=== PATIENT | female | born 1975 | race Hispanic/Latino ===

== ENCOUNTER 2021-07-09 13:53 | Emergency (ER) | payer BC, SELFPAY ==
[2021-07-09 14:06] VITALS: BP 122/58; PULSE 74; RESP 16; TEMP 37.1; O2SAT 99
--- NOTE | 2021-07-09 15:10 | ED.FEMALEGU ---
HPI - Female Genitourinary General Chief complaint: Urogenital-Female Stated complaint: UTI Time Seen by Provider: 07/09/21 14:52 Source: patient and RN notes reviewed Mode of arrival: ambulatory Limitations: no limitations History of Present Illness HPI Narrative: Patient presents today complaining of 5-day history of lower abdominal discomfort, burning with urination, urinary frequency. Pain increases in the external genitalia when she is sitting. She has not been taking any [id number] medication for symptoms prior to arrival. She has an appointment with her PCP next week, but did not want to wait till then. History of pyelonephritis. Related Data Allergies Allergy/AdvReac Type Severity Reaction Status Date / Time No Known Allergies Allergy Verified 07/09/21 14:03 Review of Systems Review of Systems: CONSTITUTIONAL: Denies body aches, fever, chills, or sweats. EYES: Denies visual changes, redness, or discharge. ENT: Denies rhinorrhea, congestion, sore throat, or otalgia. CARDIOVASCULAR: Denies chest pain, palpitations, or edema. RESPIRATORY: Denies cough or dyspnea. GASTROINTESTINAL: Denies abdominal pain, nausea, vomiting, or diarrhea. GENITOURINARY: + Dysuria, frequency, lower abdominal discomfort SKIN: Denies rash, itching, or wounds. MUSCULOSKELETAL: Denies back pain, joint pain, or myalgia. NEUROLOGIC: Denies headache, numbness, tingling, or weakness. PSYCH: Denies depression or anxiety. PMFSH Comments At time of signature, I have reviewed and agree with nursing past medical, surgical, social and family history unless otherwise noted. Please see nursing chart for further information. There is no relevant family history pertinent to the presenting complaint Exam Narrative: GENERAL: Well-appearing, well-nourished, and in no acute distress. HEAD: Normocephalic, atraumatic. EYES: EOMI. No redness or drainage. Conjunctivae normal. ENT: Mucous membranes pink and moist. NECK: Normal AROM. CHEST: No respiratory distress. Clear to auscultation. HEART: Regular rate and rhythm. No murmur appreciated. Normal peripheral pulses. ABDOMEN: Soft, nontender, nondistended, normal active bowel sounds. : Normal external genitalia. MUSCULOSKELETAL: No bony tenderness. EXTREMITIES: Normal range of motion. No edema. SKIN: Warm, dry, no rash. Capillary refill normal. Normal skin turgor. NEURO: No focal deficits. Alert and oriented x3. Gait steady. PSYCH: Normal affect. No signs of depression or anxiety. Course Vital Signs Vital signs: Vital Signs Temperature 98.7 F 07/09/21 14:06 Pulse Rate 74 07/09/21 14:06 Respiratory Rate 16 07/09/21 14:06 Blood Pressure 122/58 L 07/09/21 14:06 Pulse Oximetry 99 07/09/21 14:06 Temperature 98.7 F 07/09/21 14:06 Pulse Rate 74 07/09/21 14:06 Respiratory Rate 16 07/09/21 14:06 Blood Pressure 122/58 L 07/09/21 14:06 Pulse Oximetry 99 07/09/21 14:06 Reviewed. Pt has been instructed to follow up with her PCP regarding her elevated blood pressure today. MDM - Female Genitourinary Differential Diagnosis Differential diagnosis: Likely urinary tract infection, vaginitis and cystitis Lab Data Attestation: I reviewed the patient's lab results. Labs: Urine Glucose Negative Reference Range: Negative Urine Bilirubin Negative Reference Range: Negative Urine Ketone Negative Reference Range: Negative Urine Specific [place] 1.010 Reference Range:1.001-1.035 Urine Blood Negative Reference Range: Negative * * Urine pH 5.5
== END 2021-07-09 15:20 | disposition home or self-care (01) ==
PROVIDERS: Emergency Provider Nurse Practitioner; PCP Physician Assistant
DX: R30.0 Dysuria (principal); R35.0 Frequency of micturition
CPT/HCPCS: 81003; 87077; 87086; 87088; 87186; 99213; G0463

== ENCOUNTER 2021-07-30 12:43 | Outpatient (CLI) | payer BC, SELFPAY ==
--- NOTE | ~2021-07-30 | US_ITS ---
EXAMINATION: US pelvic complete w TV DATE: 07/30/2021 13:32 INDICATION: Pelvic pain. Heavy periods. Comparison:Ultrasound dated 05/13/2019 TECHNIQUE: Multiple transabdominal and endovaginal sonographic images of the pelvis performed. FINDINGS: The uterus measures 11 x 6.4 x 6 cm. There are uterine fibroids, largest measuring 3.7 cm. The endometrial complex measures 9 mm. The right ovary measures 2 x 1.4 x 2.2 cm and the left ovary measures 1.5 x 1.3 x 1.3 cm. There are small follicles in each ovary. Normal doppler signal in both ovaries. There is no free fluid in the pelvis. There are no abnormal masses seen on either side. IMPRESSION: 1. Enlarged uterus containing fibroids, largest measuring 3.7 cm maximum dimension. Reviewed, dictated and finalized at location B. LEY COLLECTOR IMPRESSION: 1. Enlarged uterus containing fibroids, largest measuring 3.7 cm maximum dimens ion.
== END 2021-07-30 12:44 | disposition home or self-care (01) ==
PROVIDERS: PCP Physician Assistant; Visit Provider Physician Assistant
DX: R10.2 Pelvic and perineal pain (principal); D25.9 Leiomyoma of uterus, unspecified
CPT/HCPCS: 76830; 76856

== ENCOUNTER 2022-01-02 10:52 | Outpatient (CLI) | payer BC, SELFPAY ==
[2022-01-02 11:40] LABS: Basophils Absolute Auto 0.1 K/mm3 (0.0-0.1); Basophils Percent Auto 0.7 % (0.2-1.2); Eosinophils Absolute Auto 0.4 K/mm3 (0-0.3); Eosinophils Percent Auto 4.3 % (0-4.4); Hematocrit 39.7 % (37.0-47.0); Hemoglobin 12.7 g/dL (12.0-15.0); Immature Granulocyte Absolute 0.04 K/mm3 (0.00-0.031); Immature Granulocyte Percent A 0.4 % (0-0.5); Lymphocytes Percent Auto 27.4 % (18.3-44.2); Mean Corpuscular Hemoglobin 28.7 pg (26-34); Mean Corpuscular Volume 89.6 fl (80-100); Mean Platelet Volume 10.7 fl (7.4-10.4); Monocytes Absolute Auto 0.7 K/mm3 (0.1-0.6); Neutrophils Absolute Auto 5.4 K/mm3 (1.3-6.7); Neutrophils Percent Auto 59.2 % (45.5-73.1); Platelet Count Result 289 k/mm3 (150-375); Red Blood Count 4.43 M/mm3 (4.2-5.4); Red Cell Distribution Width 16.4 % (11.5-14.5); White Blood Count 9.1 K/mm3 (4.5-10.0)
[2022-01-02 11:53] LABS: Appearance Urine Clear (Clear); Bilirubin Urine Negative (Negative); Blood Urine Negative (Negative); Color Urine Yellow (Yellow); Glucose Urine UA Negative (Negative); Ketones Urine Negative (Negative); Leukocyte Esterase Ur Negative LEU/UL (NEGATIVE); Nitrate Urine Negative (Negative); Protein Urine Negative (Negative); Specific Grav Ur 1.015 (1.001-1.035); Urobilinogen Urine 0.2 mg/dL (<2.0); pH Urine 7.5 (5.0-9.0)
[2022-01-02 12:06] LABS: Add Urine Microscopic? NO
[2022-01-02 12:29] LABS: Iron 61 ug/dL (37-170)
[2022-01-02 12:38] LABS: Percent Iron Saturation 17 % (20-50)
[2022-01-05 08:37] LABS: FSH 1.6 mIU/mL (***)
[2022-01-07 21:57] LABS: Estradiol, Ultrasensitive 101 pg/mL
== END 2022-01-02 10:53 | disposition home or self-care (01) ==
LOC: ANHLAB 10:55
PROVIDERS: PCP Physician Assistant; Visit Provider Obstetrics & Gynecology
DX: R10.2 Pelvic and perineal pain (principal); N92.0 Excessive and frequent menstruation with regular cycle
CPT/HCPCS: 36415; 81003; 82670; 82728; 83001; 83540; 83550; 84144; 84443; 85025; 87086

== ENCOUNTER 2022-07-10 15:08 | Outpatient (CLI) | payer MEDICAID, SELFPAY ==
--- NOTE | ~2022-07-10 | XR_ITS ---
EXAMINATION: XR thoracic spine 3V DATE: 07/10/2022 15:48 INDICATION: Thoracic back pain TECHNIQUE: AP, lateral and lateral swimmer's views of the thoracic spine were obtained. COMPARISON: None. FINDINGS: There are 10 degrees of mid thoracic levocurvature. Bone alignment is normal. There is no f racture. Small degenerative osteophytes project from the anterior endplates of multiple vertebral bod ies. There is mild loss of intervertebral disc space height in the midthoracic spine. IMPRESSION: 1. Mild thoracic spondylosis without acute findings. Reviewed, dictated and finalized at location B. CIPAL ARCHITECTURAL FIRM
--- NOTE | ~2022-07-10 | XR_ITS ---
EXAMINATION: XR lumbar spine 2-3V DATE: 07/10/2022 15:48 INDICATION: Low back pain TECHNIQUE: Anteroposterior and lateral views of the lumbar spine, and cone-down lateral view of the l umbosacral junction were obtained. COMPARISON: 05/10/2019 FINDINGS: There are 2 mm of stable retrolisthesis of L5 on S1. There is mild loss of intervertebral d isc space height at L5-S1 without significant change. The vertebral body heights are normal. There is no fracture. IMPRESSION: 1. Mild lumbar spondylosis without acute findings or significant interval change. Reviewed, dictated and finalized at location B. INVESTIGATOR IMPRESSION: 1. Mild lumbar spondylosis without acute findings or significant interval faheem tan
== END 2022-07-10 15:09 | disposition home or self-care (01) ==
PROVIDERS: PCP Physician Assistant; Visit Provider Physician Assistant
DX: M47.894 Other spondylosis, thoracic region (principal); M47.896 Other spondylosis, lumbar region
CPT/HCPCS: 72072; 72100

== ENCOUNTER 2022-07-17 13:44 | Emergency (ER) | payer MEDICAID, SELFPAY ==
[2022-07-17 13:51] VITALS: BP 129/67; PULSE 95; RESP 16; TEMP 36.7; O2SAT 100
--- NOTE | 2022-07-17 14:53 | ED.URI ---
HPI - URI/Sore Throat General Chief Complaint: Upper Respiratory Infection Stated Complaint: uri Source: patient and RN notes reviewed Mode of arrival: ambulatory Limitations: no limitations History of Present Illness HPI Narrative: 46-year-old female presented for complaints of sinus congestion and drainage, cough, and bilateral ear pressure. Cough is nonproductive. She is taking Mucinex occasionally without relief. She denies shortness of breath, wheezing, nausea, vomiting, diarrhea, fevers or chills. She denies sick contacts. MD elicited complaint: cough Related Data Home Medications Medication Instructions Recorded Confirmed ferrous sulfate 325 mg (65 mg 325 mg PO DAILY 01/02/22 07/17/22 iron) tablet omeprazole 20 mg capsule,delayed 20 mg PO DAILY 07/17/22 07/17/22 release Allergies Allergy/AdvReac Type Severity Reaction Status Date / Time No Known Allergies Allergy Verified 07/17/22 13:58 Review of Systems Review of Systems: CONSTITUTIONAL: Denies malaise, chills, sweats, fever EYES: Denies visual changes, redness, or discharge ENT: Reports rhinorrhea, congestion, deniessinus pain, otalgia, sore throat CARDIOVASCULAR: Denies chest pain, palpitations, edema RESPIRATORY: Reports cough, post nasal drainage. 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 TM pearly zacarias with dull light reflex bilaterally; no tragal tenderness. Oropharynx erythematous without lesions or exudate, no drooling, no hoarseness, no trismus, uvula midline. CHEST: Clear to auscultation, breath sounds equal. No wheezing, rhonchi, rales, or stridor. No respiratory distress, speaks in full sentences. HEART: Regular rate and rhythm. No murmur heard. SKIN: Warm, dry, no rash. NEURO: Alert and oriented x3. PSYCH: Normal mood and affect Course Course Emergency Course: Patient is aware of diagnosis, understands and agrees to treatment plan. Anticipatory guidance given. Patient agrees to follow-up as directed and is aware of reasons to seek care at the emergency department. Portions of this record may have been created with voice recognition software Level of Care: Express Care Visit Vital Signs Vital signs: Vital Signs Temperature 98.1 F 07/17/22 13:51 Pulse Rate 95 07/17/22 13:51 Respiratory Rate 16 07/17/22 13:51 Blood Pressure 129/67 07/17/22 13:51 Pulse Oximetry 100 07/17/22 13:51 Oxygen Delivery Room Air 07/17/22 13:51 Temperature 98.1 F 07/17/22 13:51 Pulse Rate 95 07/17/22 13:51 Respiratory Rate 16 07/17/22 13:51 Blood Pressure 129/67 07/17/22 13:51 Pulse Oximetry 100 07/17/22 13:51 Oxygen Delivery Room Air 07/17/22 13:51 reviewed MDM - URI/Sore Throat MDM Narrative Medical decision making narrative: Symptoms present over 5 days. Advised supportive measures and signs/symptoms to go to the ER. Pt is appropriate for outpt treatment and f/u
== END 2022-07-17 15:25 | disposition home or self-care (01) ==
PROVIDERS: Emergency Provider Nurse Practitioner Family; PCP Physician Assistant
DX: J06.9 Acute upper respiratory infection, unspecified (principal); E61.1 Iron deficiency
CPT/HCPCS: 99213; G0463

== ENCOUNTER 2022-08-05 09:41 | Outpatient (CLI) | payer MEDICAID, SELFPAY ==
[2022-08-05 10:52] LABS: Hematocrit 37.1 % (37.0-47.0)
== END 2022-08-05 09:42 | disposition home or self-care (01) ==
PROVIDERS: PCP Physician Assistant; Visit Provider Obstetrics & Gynecology
DX: D25.9 Leiomyoma of uterus, unspecified (principal)
CPT/HCPCS: 36415; 85014; 85018

== ENCOUNTER 2022-08-12 01:25 | Day surgery (SDC) | payer MEDICAID, SELFPAY ==
[2022-07-29 16:38] VITALS: BMI 28.9
--- NOTE | 2022-07-29 16:54 | PC.NURSE ---
Report to the Outpatient Waiting Room, entrance under the green pavilion located off [facility], at time 0800 on date 08/12/22. Planned Procedure Time: 1000. Time changes happen often and if your time is changed the preop area will call you the afternoon before. - You and your visitor will be asked to self-screen and do not enter if you have any COVID symptoms. - Only one visitor is requested with a max of two and NO children visitors are allowed at this time. - The patient visitor may be requested to leave or wait in car when not with patient due to distancing restrictions. - A mask is optional within the hospital. Patients may have clear liquids (water, carbonated beverages, clear teas, apple juice) until 3 hours prior to surgery with a maximum of 20 ounces. 0700 - No food from midnight until time of surgery - Infants may have breast milk until 4 hours before surgery, infant formula 6 hours prior to surgery. - Children will be allowed to drink immediately following surgery. If applicable, please bring a bottle or sippy cup to assist with drinking. Juice, water, soda, and popsicles are readily available. For infants on formula, please bring formula the day of surgery. Pacifiers are allowed. Take the following medications with a SIP of water the morning of surgery: ferrous sulfate Medications to discontinue per physician multivitamin Date to take last dose 08/09/22 Please no make-up, nail ethiopian, hairspray, perfume, deodorant, or body powder the day of surgery. No jewelry (including any body piercings) or valuables the day of surgery, leave them at home. Please take a shower or bath the night before, or the morning of, surgery with an antibacterial soap. Wear comfortable, loose fitting clothing. Children are encouraged to wear pajamas. - Jewelry must be removed prior to entering the operating room. Rings and piercings that are not removed may be cut off. - The hospital will not accept responsibility for valuables. - Please leave all valuables, including medications, at home the day of surgery. If you are going home after surgery, a licensed intermodal truck driver must drive you home. - NO public transportation without another adult if you receive anesthesia. - We recommend that an adult stay with you for 24 hours following discharge. - We also recommend that you do not drive, make important decision, drink alcoholic beverages, or take any drugs that were not prescribed by your health care provider for at least 24 hours after your discharge time. For Pediatric surgeries, we recommend two adults accompany the child home. Follow any additional instructions given to you from your surgeon. If you or anyone in your household have experienced Covid symptoms in the past week, please notify your surgeon or the nurse liaison at the phone number below for possible testing. Telephone instructions given to Lorrainebradley Zaidi & Daughter Sandy and asked if any additional questions and then verbalized understanding. Patient advised to call surgeon office or pre surgery nurse liaison [phone] if any additional questions.
--- NOTE | 2022-08-05 09:13 | PC.NURSE ---
6062 PT ARRIVED TO SIGN CONSENT FOR SURGERY - PT ACCOMPANIED BY FRIEND NOEMI HARDIN CERTIFIED MEDICAL PATIENT RESOURCE SPECIALIST AND MEMBER OF HOSPITAL LIAISON COMMITTEE FOR SCIENTOLOGY, [facility] VIDEO INTERPRETING NIKKI JOEL #[id number] FOR SINGING OF CONSENT FOR SURGERY AND FOR REFUSAL/LIMITATIONS OF USE OF BLOOD COMPONENTS.
--- NOTE | 2022-08-11 17:36 | PM.IMHP ---
H&P: HPI History of Present Illness Date/Time: 08/11/22 17:36 Chief Complaint: AUB Narrative: Lorraine is a 46yo [id number], who presents for scheduled surgery due to AUB. She had a OFFICE DIRECTOR US on 07/2021 and 01/2022 showing an enlarged uterus w/ fibroids (largest 3.7cm; one concerning to be near the EC). She reports her cycles are very heavy. 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 She stopped them and then had a normal cycle of 8 days, but it was a lot heavier. She has been passing blood clots for the last two years; gum ball or sometimes bigger. EMB 01/2022 showed normal endometrium. She then started the cyclic provera; and reports her cycles are still heavy and lasting 10 days; the first 3 days were truck despatcher, but then it was heavier than before (passing even bigger clots). No symptoms of anemia currently, still taking iron. She had blood work with her PCP 04/2022 and told her blood counts were normal. She is a Jehovia's witness and does not accept blood transfusion. She is not interested in major surgery. She has a h/o BTL already. 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 Gender identity (if verbalized by the patient): Female Sexual Orientation (if Verbalized by the Patient): Straight or Heterosexual Spiritual care concerns: No Meds Home Medications and Allergies Home Medications Medication Instructions Recorded Confirmed Type ferrous sulfate 325 mg (65 mg 325 mg PO HS 01/02/22 07/29/22 History iron) tablet medroxyprogesterone 10 mg tablet 10 mg PO DAILY 10 days #30 tabs 01/29/22 07/29/22 Rx (Provera) fluticasone propionate 50 2 spray intranasal DAILY PRN 07/17/22 07/29/22 Rx mcg/actuation nasal allergy symptoms #16 grams spray,suspension (Flonase Allergy Relief) omeprazole 20 mg capsule,delayed 20 mg PO HS 07/17/22 07/29/22 History release Adults Multivitamin 1 tab-cap PO DAILY 07/29/22 07/29/22 History Allergies Allergy/AdvReac Type Severity Reaction Status Date / Time No Known Allergies Allergy Verified 07/29/22 16:38 Exam Const: General: cooperative, comfortable and no acute distress Nutritional Appearance: overweight Resp: Effort & Inspection: normal respiratory effort Cardio: Rate: regular rate GI: Inspection: normal to inspection GI Palp: No abdominal tenderness and Yes Soft to palpation : Other: deferred to OR Skin: General skin exam: normal color Neuro: General: patient oriented x3 Extrem: General: normal to inspection Psych: Appearance: grossly normal Affect: normal affect Attitude: cooperative Assessment and Plan Assessment and plan (1) Menorrhagia: Code(s): N92.0 - Excessive and frequent menstruation with regular cycle Status: Acute (2) Fibroid uterus: Qualifiers: Uterine leiomyoma location: unspecified location Qualified Code(s): D25.9 - Leiomyoma of uterus, unspecified Code(s): D25.9 - Leiomyoma of uterus, unspecified Status: Acute (3) History of tubal ligation: Code(s): Z98.51 - Tubal ligation status Status: Acute Plan - she has failed medical management but does not desire a large surgery; will plan for minimally invasive surgery - she is s/p EMB and tubal - proceed with Hysteroscopy, D&C, ablation, possible HSC ursula
--- NOTE | 2022-08-12 06:58 | WPDHPUPDATE1 ---
History and Physical Update Update Date/Time: 08/12/22 06:58 History and Physical has been reviewed, including an updated exam of the patient. There are NO changes in the patient's condition. Risks, benefits, and alternatives have been discussed and questions answered. Patient agrees to proceed with procedure.
[2022-08-12] MEDS: LACTATED RINGERS 1,000 ML 30 ML IV CONT ×2 (08:36→11:34)
[2022-08-12] MEDS: ACETAMINOPHEN 500 MG TABLET 1000 MG PO (08:50)
[2022-08-12 08:54] VITALS: BP 120/54; PULSE 71; RESP 16; TEMP 36.4; O2SAT 100
[2022-08-12 09:03] LABS: Hematocrit 34.1 % (37.0-47.0); Hemoglobin 10.8 g/dL (12.0-15.0)
--- NOTE | 2022-08-12 09:27 | WPDANESEPPF ---
Anes - Initial Pre Proc Eval Procedure: Operation Date: 08/12/22 10:00 Proposed Procedures p Hysteroscopy Dilation and Curettage Heena Endometrial Ablation, Myomectomy Using Myosure - Delicia Mcdonald MD Date/Time: 08/12/22 09:27 Surgeon: Delicia Mcdonald MD Pre Op Diagnosis: menorrhagia, uterine fibroid Patient Data Age: 46 Gender: F Height: 1.6 m Weight: 68.5 kg Last Vital Signs Temp 97.5 F L 08/12/22 08:54 Pulse 71 08/12/22 08:54 Resp 16 08/12/22 08:54 BP 120/54 L 08/12/22 08:54 Pulse Ox 100 08/12/22 08:54 O2 Del Method Room Air 08/12/22 08:54 Allergies Allergy/AdvReac Type Severity Reaction Status Date / Time No Known Allergies Allergy Verified 08/12/22 08:52 Home Medications Medication Instructions Recorded Confirmed Type ferrous sulfate 325 mg (65 mg 325 mg PO HS 01/02/22 07/29/22 History iron) tablet medroxyprogesterone 10 mg tablet 10 mg PO DAILY 10 days #30 tabs 01/29/22 07/29/22 Rx (Provera) fluticasone propionate 50 2 spray intranasal DAILY PRN 07/17/22 08/12/22 Rx mcg/actuation nasal allergy symptoms #16 grams spray,suspension (Flonase Allergy Relief) omeprazole 20 mg capsule,delayed 20 mg PO HS 07/17/22 07/29/22 History release Adults Multivitamin 1 tab-cap PO DAILY 07/29/22 07/29/22 History Laboratory Tests 08/12/22 08:39 Hgb 10.8 g/dL L g/dL (12.0-15.0) Hct 34.1 % L % (37.0-47.0) Patient hx anesthesia problems: post op nausea/vomiting Family hx anesthesia problems: none Results Review: All pre-operative results and documents have been reviewed as part of the pre-operative evaluation. 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 Gender identity (if verbalized by the patient): Female Sexual Orientation (if Verbalized by the Patient): Straight or Heterosexual Spiritual care concerns: No Anes - Eval Final PreProcedure Day of Procedure 08/12/22 09:27 Patient weight: normal Heart: regular rate and rhythm Lungs: clear to auscultation Airway: Mallampati scale class II Neurological: alert and oriented Last oral intake: >/= 8 hours ASA classification: II Emergent: no Anesthetic plan: proceed Anesthesia type and monitoring: general GIVS and standard monitoring Results Review: All pre-operative results and documents have been reviewed as part of the pre-operative evaluation. Informed Consent: The patient's anesthetic plan and its attendant risks and benefits were discussed with the patient/family/POA. Questions were solicited and answers provided to the satisfaction of the patient/family/POA.
--- NOTE | 2022-08-12 10:44 | W.PM.PROC2 ---
Procedure Note - Detailed Date of Procedure 08/12/22 Pre-op Diagnosis menorrhagia, uterine fibroid Post-op Diagnosis Same Procedure Performed Hysteroscopy with Myosure myomectomy, dilation and curettage, and Heena endometrial ablation Surgeon Delicia Mcdonald MD Anesthesia MAC Findings Uterus sounded to 10cm, normal cervix, 3-4cm fibroid arising from posterior uterine wall (removed in whole), 1-2cm fibroid arising from anterior/right uterine wall (removed in whole), ablated endometrial cavity at end of case. Good hemostasis Fluid deficit: 100cc Description of Procedure Lorraine was taken to the operating room where she was placed under sedation without complications. She was then prepped and draped in the usual sterile fashion in the dorsal lithotomy position with her legs in low Osvaldo stirrups. A time-out was performed and no perioperative antibiotics were indicated. A bivalve speculum was placed within the vagina where the cervix was easily identified. The anterior lip of the cervix was grasped with a single-tooth tenaculum. The uterus was sounded. The cervix was then serially dilated to allow for the Myosure hysteroscope. The Myosure hysteroscope was advanced into the uterine cavity with the above findings noted. Using the Myosure device, the two fibroids were removed, paying close attention to the fluid deficit. The fibroids were removed without issue and a normal cavity was noted. A curettage was then performed until a good uterine cry was felt throughout the uterus. The Heena endometrial device was then opened and an endometrial ablation was performed per the manufacturers directions without complications. The hysteroscope was once again advanced into the uterine cavity where it was noted to be ablated. Good hemostasis was noted. All instruments were removed from the vagina. Sponge, lap, instrument, and needle counts were correct at the end of the procedure. Patient was awoken from anesthesia and taken to recovery with plans of same-day discharge home. Estimated Blood Loss 10 IV Fluids 900 Pathology Yes (endometrial curettings and fibroids) Complications No immediate complications Condition Stable Disposition Same day [facility] Billing Surgery - Charge Forward: Surgery Billing
[2022-08-12 10:50] VITALS: BP 115/55; PULSE 56; RESP 12; O2SAT 96
[2022-08-12] MEDS: fentaNYL CITRATE INJ (*CRX) 100 MCG/2 ML VIAL 25 MCG IV PUSH ×4 (10:50→11:35)
[2022-08-12 11:20] VITALS: BP 115/69; PULSE 48; RESP 12; O2SAT 96
[2022-08-12] MEDS: KETOROLAC 30 MG/ML VIAL (*BKC) IV PUSH (11:56)
[2022-08-12 12:00] VITALS: BP 139/77; PULSE 45; RESP 16; O2SAT 100
[2022-08-12] MEDS: SCOPOLAMINE 1.5 MG PATCH TRANSDERM (12:02)
[2022-08-12 12:30] VITALS: BP 139/81; PULSE 48
[2022-08-12] MEDS: ONDANSETRON INJ 4 MG/2 ML VIAL IV PUSH (12:34)
[2022-08-12] MEDS: oxyCODONE HCL (*CRX) 5 MG TAB IR PO (12:51)
[2022-08-12 13:00] VITALS: BP 148/80; PULSE 44; RESP 12
== END 2022-08-12 13:40 | disposition home or self-care (01) ==
PROVIDERS: PCP Physician Assistant; Visit Provider Obstetrics & Gynecology
PROC: 0U5B8ZZ Destruction of Endometrium, Via Natural or Artificial Opening Endoscopic (ICD-10-PCS; CPT 58563; principal; 2022-08-12 10:00)
DX: N92.0 Excessive and frequent menstruation with regular cycle (principal); D25.9 Leiomyoma of uterus, unspecified; E61.1 Iron deficiency
CPT/HCPCS: 58563; 58561; 36415; 85014; 85018; 88305; A9270; J1885; J2250; J2405; J2704; J3010; J7030; J7120

== ENCOUNTER 2022-08-25 12:30 | Emergency (ER) | payer MEDICAID, SELFPAY ==
[2022-08-25] VITALS (16 sets, daily range): BP systolic 109–131; BP diastolic 55–79; PULSE 59–74; RESP 16; TEMP 36.7; O2SAT 96–100
--- NOTE | ~2022-08-25 | CT_ITS ---
EXAMINATION: CT abdomen pelvis w con DATE: 08/25/2022 16:44 INDICATION: hysteroscopy, d C 08/12, lower ABD pain, UTI TECHNIQUE: Computed tomography (CT) of the abdomen and pelvis was performed with 100 mL Omnipaque-350 intravenous contrast. Automated exposure control and iterative reconstruction technique were employe d. The dose-length product was 411.10 mGy-cm. COMPARISON: 05/10/2019. FINDINGS: Lower thorax: Unremarkable Liver: Normal. Biliary/Gallbladder: Gallbladder is normal. No bile duct dilation. Pancreas: No mass or duct dilation. Spleen: Normal. Adrenals:No mass. Kidneys: No mass, stone, or hydronephrosis. GI tract: No small or large bowel dilation. Status post appendectomy. Diverticulosis without divertic ulitis. Mesentery/Peritoneum: No ascites, mass, or free air. Retroperitoneum: No mass. Pelvis: Slightly irregular appearing fluid-filled endometrial cavity. Multiple uterine fibroids. Righ t corpus luteal cyst. Mild bladder wall thickening in a partially decompressed urinary bladder. Soft Tissues: Small uncomplicated fat-containing umbilical hernia. Bones: No acute osseous finding. IMPRESSION: Slightly irregular, fluid-filled endometrial cavity, correlate with menstrual cycle and any symptoms of abnormal vaginal bleeding. Mild bladder wall thickening as can be seen with cystitis in the approp riate clinical context. Multiple uterine fibroids. Reviewed, dictated and finalized at location K. [employer] DEPARTMENT SUPERVISOR IMPRESSION: Slightly irregular, fluid-filled endometrial cavity, correlate with menstrual c ycle and any symptoms of abnormal vaginal bleeding. Mild bladder wall thickenin g as can be seen with cystitis in the appropriate clinical context. Multiple ut erine fibroids.
[2022-08-25 13:08] LABS: Basophils Absolute Auto 0.1 K/mm3 (0.0-0.1); Basophils Percent Auto 0.6 % (0.2-1.2); Eosinophils Absolute Auto 0.6 K/mm3 (0-0.3); Eosinophils Percent Auto 5.2 % (0-4.4); Hematocrit 39.6 % (37.0-47.0); Hemoglobin 12.6 g/dL (12.0-15.0); Immature Granulocyte Absolute 0.06 K/mm3 (0.00-0.031); Immature Granulocyte Percent A 0.6 % (0-0.5); Lymphocytes Absolute Auto 2.15 K/mm3 (0.9-3.2); Lymphocytes Percent Auto 20.1 % (18.3-44.2); Mean Corpuscular HGB Conc 31.8 g/dl (32-36); Mean Platelet Volume 10.3 fl (7.4-10.4); Monocytes Absolute Auto 0.7 K/mm3 (0.1-0.6); Monocytes Percent Auto 6.5 % (2.6-8.5); Neutrophils Absolute Auto 7.2 K/mm3 (1.3-6.7); Platelet Count Result 314 k/mm3 (150-375); Red Cell Distribution Width 15.3 % (11.5-14.5); White Blood Count 10.7 K/mm3 (4.5-10.0)
[2022-08-25 14:01] LABS: Add Urine Microscopic? YES; Appearance Urine Slightly Cloudy (Clear); Bilirubin Urine Negative (Negative); Blood Urine 2+ (Negative); Color Urine Light Yellow (Yellow); Glucose Urine UA Negative (Negative); Ketones Urine Negative (Negative); Leukocyte Esterase Ur 1+ LEU/UL (Negative); Nitrate Urine Negative (Negative); Protein Urine Trace mg/dL (Negative); Specific Grav Ur 1.025 (1.001-1.035); Urobilinogen Urine 0.2 mg/dL (<2.0)
[2022-08-25 14:06] LABS: Bacteria Urine 1+ /hpf; Mucus Urine Rare /lpf; RBC Urine >75 /hpf (0-2); Squamous Epithelial Cell Urine Moderate /hpf (Few); WBC Urine >75 /hpf
[2022-08-25 14:24] LABS: Alanine Aminotransferase 28 U/L (6-35); Albumin Level 4.6 g/dL (3.5-5.1); Alkaline Phosphatase 62 U/L (38-126); Anion Gap 6 mmol/L (8-16); Aspartate Amino Transferase 32 U/L (14-36); Bilirubin,Total 0.5 mg/dL (0.2-1.3); Blood Urea Nitrogen 14 mg/dL (7-17); Calcium 9.3 mg/dL (8.4-10.2); Carbon Dioxide 23 mmol/L (22-30); Chloride 105 mmol/L (98-107); Estimated CRCL calculation 134 ml/min; Estimated Glomerular Filt Rate > 60; Glucose 132 mg/dL (65-110); Lipase 56 U/L (23-300); Sodium 134 mmol/L (137-145)
[2022-08-25] MEDS: SODIUM CHLORIDE 0.9% IV 1,000 ML 999 ML IV CONT (16:15)
[2022-08-25 16:33] LABS: Pregnancy On Board Control Positive; Urine Pregnancy Test Negative
--- NOTE | 2022-08-25 16:37 | ED.ABDPAIN ---
HPI - Abdominal Pain General Chief Complaint: Abdominal Pain Stated Complaint: abd pain Time Seen by Provider: 08/25/22 15:55 Source: patient Mode of arrival: ambulatory Limitations: no limitations History of Present Illness HPI narrative: Patient is a 46-year-old female who presents to the ED with report of lower abdominal pain. Patient reports she had a procedure to remove uterine fibroids on 08/[address] Delicia Mcdonald. She has been doing well with the pain last week and stopped needing pain medicine on . She then developed worsening pain on Friday in her lower abdomen, along with dysuria and urinary frequency. She is concerned she may have a urinary tract infection. Denies any fever, nausea, vomiting, abnormal bleeding, diarrhea, constipation, chest pain, difficulty breathing. Related Data Home Medications Medication Instructions Recorded Confirmed ferrous sulfate 325 mg (65 mg 325 mg PO HS 01/02/22 07/29/22 iron) tablet omeprazole 20 mg capsule,delayed 20 mg PO HS 07/17/22 07/29/22 release Adults Multivitamin 1 tab-cap PO DAILY 07/29/22 07/29/22 Allergies Allergy/AdvReac Type Severity Reaction Status Date / Time No Known Allergies Allergy Verified 08/12/22 08:52 Review of Systems Review of Systems: CONSTITUTIONAL: Denies fever, chills, or sweats. ENT: Denies rhinorrhea, congestion, sore throat. CARDIOVASCULAR: Denies chest pain. RESPIRATORY: Denies cough or dyspnea. GASTROINTESTINAL: Reports lower ABD pain. Denies nausea, vomiting, constipation, or diarrhea. GENITOURINARY: Reports dysuria, urinary frequency. Denies hematuria. 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 HEAD: Normocephalic, atraumatic. NECK: Supple. No adenopathy, no masses. RESPIRATORY: Airway patent, respirations nonlabored. Clear to auscultation bilaterally, no rales, rhonchi, wheezing. CARDIOVASCULAR: Regular rate and rhythm without murmurs, rubs, or gallops. Peripheral pulses 2+ and equal bilaterally. ABDOMINAL: Soft, moderate tenderness throughout lower abdomen, worst in suprapubic region. Nondistended, no hepatosplenomegaly. Normoactive BS. MUSCULOSKELETAL: Moves all extremities. Strength/ROM intact without gross deformities. SKIN: Warm, dry, normal color. No rashes. NEURO: A&O X3. Speech clear. Cranial nerves II-XII grossly intact. Steady gait. No ataxic movements. PSYCHIATRIC: Appropriate mood and affect. Normal interaction. Course Consultations Consultation #1: Discussed case and CT findings with Dr. Mcdonald/obgyanup/patient's surgeon, who preferred Bactrim for UTI antibiotic coverage. Date: 08/25/22 Vital Signs Vital signs: Vital Signs Temperature 98.0 F 08/25/22 14:14 Pulse Rate 74 08/25/22 14:14 Respiratory Rate 16 08/25/22 14:14 Blood Pressure 131/76 08/25/22 14:14 Pulse Oximetry 99 08/25/22 14:14 Oxygen Delivery Room Air 08/25/22 14:14 Temperature 98.1 F 08/25/22 18:01 Pulse Rate 62 08/25/22 1
== END 2022-08-25 18:38 | disposition home or self-care (01) ==
PROVIDERS: Emergency Medicine; Emergency Provider Physician Assistant; PCP Physician Assistant
DX: N30.01 Acute cystitis with hematuria (principal); R10.30 Lower abdominal pain, unspecified
CPT/HCPCS: 36415; 74177; 80053; 81001; 81025; 83690; 85025; 87077; 87086; 87088; 87186; 96365; 96375; 99284; J0131; J0696; J7030; Q9967

== ENCOUNTER 2022-09-17 09:54 | Outpatient (CLI) | payer MEDICAID, SELFPAY ==
--- NOTE | ~2022-09-17 | MM_ITS ---
EXAMINATION: MM screening guerline BI w guicho HISTORY: Screening mammogram TECHNIQUE: Craniocaudal and mediolateral oblique 3-D tomosynthesis images were obtained and synthetic 2-D images were generated. CAD analysis was submitted and interpreted. COMPARISON: None, baseline BREAST PARENCHYMAL COMPOSITION: The breasts are heterogeneously dense, which may obscure small masses . FINDINGS: Scattered benign-appearing calcifications are present. No suspicious mass, calcification, o r architectural distortion are identified in either breast to suggest malignancy. IMPRESSION: 1. No mammographic evidence of malignancy. 2. Recommend routine screening mammography in one year. BI-RADS Category 2: Benign finding(s). Reviewed, dictated and finalized at location A. NK DASHBOARD DEVELOPER
== END 2022-09-17 09:55 | disposition home or self-care (01) ==
LOC: ANHIMG 09:56
PROVIDERS: PCP Physician Assistant; Visit Provider Obstetrics & Gynecology
DX: Z12.31 Encounter for screening mammogram for malignant neoplasm of breast (principal)
CPT/HCPCS: 77063; 77067

== ENCOUNTER 2024-02-14 16:54 | Emergency (ER) | payer OTHER, SELFPAY ==
[2024-02-14 17:10] VITALS: BP 118/78; PULSE 72; RESP 16; TEMP 37.1; O2SAT 99
--- NOTE | 2024-02-14 17:48 | ED.URI ---
HPI - URI/Sore Throat General Chief Complaint: Upper Respiratory Infection Stated Complaint: cough,chest tightness Time Seen by Provider: 02/14/24 17:48 Source: patient and RN notes reviewed Mode of arrival: ambulatory Limitations: no limitations History of Present Illness HPI Narrative: 48-year-old female presents with concern for cough for 12 days. Reports chest congestion tightness, nasal congestion, sinus pressure and pain. Reports she has taken Sudafed without relief. Reports chills and sweats. She denies fever. MD elicited complaint: cough Related Data Allergies Allergy/AdvReac Type Severity Reaction Status Date / Time No Known Allergies Allergy Verified 02/14/24 17:02 Review of Systems Review of Systems: CONSTITUTIONAL: Denies malaise or fever. Reports chills and sweats EYES: Denies visual changes, redness, or discharge. ENT: Reports rhinorrhea, congestion, sinus pain, and sore throat. CARDIOVASCULAR: Denies chest pain, palpitations, or edema. RESPIRATORY: Reports cough, chest congestion, chest tightness. Denies dyspnea. GASTROINTESTINAL: Denies abdominal pain, nausea, vomiting, diarrhea SKIN: Denies rash or itching. MUSCULOSKELETAL: Reports myalgia. NEUROLOGIC: Denies headache. 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 There is no relevant family history pertinent to the presenting complaint Exam Narrative: GENERAL: Well-appearing, well-nourished, and in no acute distress. HEAD: Normocephalic EYES: PERRLA, conjunctivae clear ENT: Nares clear, turbinates edematous and erythematous. Mucous membranes moist. TM pearly zacarias with dull light reflex bilaterally; no tragal tenderness. Oropharynx not erythematous without lesions. Tonsils not enlarged and without exudate, no drooling, no hoarseness, no trismus, uvula midline. NECK: Supple. No lymphadenopathy CHEST: Clear to auscultation, breath sounds equal. No wheezing, rhonchi, rales, or stridor. No respiratory distress, speaks in full sentences. Cough noted HEART: Regular rate and rhythm. No murmur heard. SKIN: Warm, dry, no rash. NEURO: Alert and oriented x3. PSYCH: Normal mood and affect Course Course Emergency Course: Patient is aware of diagnosis, understands and agrees to treatment plan. Anticipatory guidance given. Patient agrees to follow-up as directed and is aware of reasons to seek care at the emergency department. Portions of this record may have been created with voice recognition software Level of Care: Express Care Visit Vital Signs Vital signs: Vital Signs Temperature 98.7 F 02/14/24 17:10 Pulse Rate 72 02/14/24 17:10 Respiratory Rate 16 02/14/24 17:10 Blood Pressure 118/78 02/14/24 17:10 Pulse Oximetry 99 02/14/24 17:10 Oxygen Delivery Room Air 02/14/24 17:10 Temperature 98.7 F 02/14/24 17:10 Pulse Rate 72 02/14/24 17:10 Respiratory Rate 16 02/14/24 17:10 Bloo
== END 2024-02-14 18:00 | disposition home or self-care (01) ==
PROVIDERS: Emergency Provider Nurse Practitioner; PCP Physician Assistant
DX: J32.9 Chronic sinusitis, unspecified (principal); J40 Bronchitis, not specified as acute or chronic
CPT/HCPCS: 99213; G0463

== ENCOUNTER 2024-06-09 14:54 | Outpatient (CLI) | payer OTHER, SELFPAY ==
--- NOTE | ~2024-06-09 | US_ITS ---
EXAM: PELVIC ULTRASOUND HISTORY: Pain in pelvis COMPARISON: 02/11/2022. Reference is also made to the CT examination of the abdomen and pelvis dated 08/25/2022 FINDINGS: UTERUS: 11.4 x 6.9 x 6.9 cm. The uterus is anteverted and anteflexed. The endometrial complex measures 12 mm. Multiple fibroids are identified within the uterus. The largest is within the subserosal space along the posterior fundus measuring 2.6 x 4.0 x 3.1 cm. RIGHT OVARY: The right ovary is unremarkable in echogenicity and size measuring 2.5 x 2.2 x 2.8 cm. Arterial and venous flow are identified. LEFT OVARY: The left ovary is unremarkable in size and heterogeneous in echogenicity measuring 3.0 x 3.5 x 2.6 cm Both arterial and venous flow are identified. A single anechoic avascular focus is identified within the left ovary measuring 18 x 10 x 18 mm, repr esenting a simple cyst (perhaps an involuting follicle) for which no further follow-up is needed. No free fluid is identified within the pelvis. IMPRESSION: Fibroid uterus. No Valsalva images are submitted. However, on the CT examination performed in 2021, an enlarged left gonadal vein was visualized, along with multiple varicosities within the pelvis, findings suggestive of pelvic congestion syndrome, for which clinical correlation is needed, as this may be the source of patient's pelvic pain. Reviewed, dictated and finalized at location A. IMPRESSION: Fibroid uterus. No Valsalva images are submitted. However, on the CT examination performed in 2021, an enlarged left gonadal vein was visualized, along with multiple varicosities within the pelvis, findings s uggestive of pelvic congestion syndrome, for which clinical correlation is need ed, as this may be the source of patient's pelvic pain.
== END 2024-06-09 14:55 | disposition home or self-care (01) ==
PROVIDERS: PCP Physician Assistant; Visit Provider Physician Assistant
DX: D25.2 Subserosal leiomyoma of uterus (principal)
CPT/HCPCS: 76830; 76856

== ENCOUNTER 2024-09-20 02:16 | Day surgery (SDC) | payer BC, SELFPAY ==
[2024-09-13 13:01] VITALS: BMI 31.5
--- NOTE | 2024-09-13 13:09 | PC.NURSE ---
Report to the Outpatient Waiting Room, entrance under the green pavilion located off [facility], at time _0730_ on date _[id number]_. Planned Procedure Time: _0930_.? Time changes happen often and if your time is changed the preop area will call you the afternoon before. - You and your visitor will be asked to self-screen and do not enter if you have any COVID symptoms. Please call surgeon if you need to reschedule. - A mask is optional within the hospital at this time. Patients may have clear liquids (water, carbonated beverages, clear teas, apple juice) until 3 hours prior to surgery with a maximum of 20 ounces. - No food from midnight until time of surgery and no smoking. This includes no chewing gum, candy or mints. Take only the following medications with a SIP of water on the morning of surgery: ___None DO NOT STOP ANY OF YOUR OTHER PRESCRIPTION MEDICATIONS PRIOR TO SURGERY EXCEPT THE FOLLOWING Medications to discontinue per physician __Multivitamin and Ferrous sulfate___ Date to take last wnqp___[id number]____ Please no make-up, nail danish, hairspray, perfume, deodorant, or body powder the day of surgery.? No jewelry (including any body piercings) or valuables the day of surgery, leave them at home.? Please take a shower or bath the night before, or the morning of, surgery with an antibacterial soap.? Wear comfortable, loose fitting clothing.? - Jewelry must be removed prior to entering the operating room.? Rings and piercings that are not removed may be cut off. - The hospital will not accept responsibility for valuables.? - Please leave all valuables, including medications, at home the day of surgery. If you are going home after surgery, a licensed local tanker truck driver must drive you home.? - NO public transportation without another adult if you receive anesthesia. - We recommend that an adult stay with you for 24 hours following discharge. - We also recommend that you do not drive, make important decision, drink alcoholic beverages, or take any drugs that were not prescribed by your health care provider for at least 24 hours after your discharge time. Follow any additional instructions given to you from your surgeon. Telephone instructions given to __Benita__and asked if any additional questions and then verbalized understanding. Patient advised to call surgeon office or pre surgery nurse liaison [phone] if any additional questions.
--- NOTE | 2024-09-18 09:05 | P.HP_ITS ---
H&P: HPI History of Present Illness Date/Time: 09/18/24 09:05 Chief Complaint: AUB/pelvic pain Narrative: Lorraine is a 48yo [id number], who presents for AUB. [place] [facility] [place]C, ablation 08/2022. She has a h/o tubal ligation in the past. She has a normal pap smear 01/2022. She is still having a monthly period; commonly lasting 5-7 days (which is improved after the ablation, because they used to last almost 2 full weeks). On day 2-3, she still has a very heavy flow. She reports this is about the same flow of blood that she had before the ablation. She reports what is worse, is her pain though. She has pressure/pain in the front and it pushes towards her back every single day. Her PCP ordered a [employer] US; performed 06/04/24 showing her uterus has enlarged and has multiple fibroids now. She tried provera 10mg daily for the last 6wk and she has not stopped bleeding. She reports the pain has not decreased at all either. She reports she is starting to have troubles sleeping as she feels like she's having contraction like pains. She is wanting to proceed with scheduling surgery as she cannot live with this pain/bleeding. Review of Systems Constitutional: Constitutional: Denies chills, Denies fever(s) and Denies headache(s) Eyes: Eyes: Denies change in vision ENT: Denies dizziness and Denies headache(s) Cardiovascular: Cardiovascular: Denies chest pain and Denies dyspnea Respiratory: Respiratory: Denies cough and Denies dyspnea Gastrointestinal: Gastrointestinal: Denies abdominal pain and Denies change in stool character Genitourinary: Genitourinary: Reports abnormal menses, Reports menorrhagia, Reports dysmenorrhea, Reports pelvic pain, Denies vaginal discharge, Denies vaginal odor and Denies vaginal pruritus Neurologic: Denies dizziness and Denies headache(s) Psychiatric: Psychiatric: Denies anxiety and Denies depression PMF Past Medical History Medical History Fibroids Iron deficiency Surgical History Surgical History History of hysteroscopy History of myomectomy History of tubal ligation Hx of appendectomy Family History Family History Other Arthritis Diabetes mellitus Lupus Social History Social History Smoking status: Never smoker Alcohol intake: never Substance use: never Substance use type: does not use Do You Feel Safe in your Home?: Yes Lack of Transportation: No Lack of Food: Never True Current Housing: I Have Housing Concerned About Future Housing: No Difficulty Paying Gas/Electric Bills: No Difficulty Paying for Meds: No Currently Unemployed: No Education: Grade School Difficulty w/ Childcare or Family Care: No Living arrangements: with family Occupation/Education: occupation 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 Gender identity (if verbalized by the patient): Female Sexual Orientation (if Verbalized by the Patient): Straight or Heterosexual Spiritual care concerns: Yes (No blood) Meds Home Medications and Allergies Home Medications ?Medication ?Instructions ?Recorded ?Confirmed ?Type ferrous sulfate 325 mg (65 mg 325 mg PO DAILY 08/03/24 09/13/24 History iron) tablet ([place]-Time) cetirizine 10 mg tablet (24Hour 10 mg PO DAILY 09/13/24 09/13/24 History Allergy) multivitamin (Daily Multi-Vitamin 1 tablet PO DAILY 09/13/24 09/13/24 History tablet) Allergies Allergy/AdvReac Type Severity Reaction Status Date / Time No Known Allergies Allergy Verified 09/13/24 12:59 Exam Const: General: cooperative, comfortable, no acute distress and obese Nutritional Appearance: obese Orientation/consciousness: patient oriented x3 Resp: Effort & Inspection: normal respiratory effort Cardio: Rate: regular rate GI: Inspection: normal to inspection GI Palp: No abdominal tenderness and Yes Soft to palpation : Other: deferred to OR Skin: General skin exam: normal color Neuro: General: patient oriented x3 Extrem: General: normal to inspection Psych: Appearance: grossly normal Affect: normal affect Attitude: cooperative Assessment and Plan Assessment and plan (1) Fibroid uterus: Qualifiers: Uterine leiomyoma location: unspecified location Qualified Code(s): D25.9 - Leiomyoma of uterus, unspecified Code(s): D25.9 - Leiomyoma of uterus, unspecified Status: Acute (2) Pelvic pain: Code(s): R10.2 - Pelvic and perineal pain Status: Acute (3) Menorrhagia: Qualifiers: Menorrhagia type: with irregular cycle Qualified Code(s): N92.1 - Excessive and frequent menstruation with irregular cycle Code(s): N92.0 - Excessive and frequent menstruation with regular cycle Status: Acute Plan - Has h/o hysteroscopic myomectomy and ablation; attempted provera 10mg daily to help with pain/bleeding, but made her symptoms worse - Proceed with robotic assisted total laparoscopic hysterectomy with bilateral salpingectomy and cystoscopy - Risks and benefits of surgery discussed in detail including but not limited to pain, bleeding, injury to nearby structures (bowel, bladder, ureter, ovary, blood vessels, nerves) or infection (skin, vaginal, pelvic). - I have also discussed the recommended time off and natural course of healing/downtime
[2024-09-20] VITALS (14 sets, daily range): BP systolic 100–132; BP diastolic 54–71; PULSE 53–81; RESP 10–18; TEMP 36.2–37.1; O2SAT 96–100
--- NOTE | 2024-09-20 07:11 | WPDHPUPDATE1 ---
History and Physical Update Update Date/Time: 09/20/24 07:11 History and Physical has been reviewed, including an updated exam of the patient. There are NO changes in the patient's condition. Risks, benefits, and alternatives have been discussed and questions answered. Patient agrees to proceed with robotic assisted total laparoscopic hysterectomy with bilateral salpingectomy and cystoscopy.
[2024-09-20] MEDS: LACTATED RINGERS 1,000 ML 30 ML IV CONT ×2 (08:45→13:03)
[2024-09-20] MEDS: KETOROLAC 15 MG/ML VIAL (*BKC) IV PUSH (09:12)
[2024-09-20] MEDS: ACETAMINOPHEN 500 MG TABLET 1000 MG PO ×3 (09:12→21:36)
--- NOTE | 2024-09-20 09:24 | WPDANESEPPF ---
Anes - Initial Pre Proc Eval Procedure: Operation Date: 09/20/24 10:00 Proposed Procedures p Robotic Assisted Total Laparoscopic Hysterectomy with Bilateral Salpingectomy - Delicia Mcdonald MD <Ben Garza MD - Last Filed: 09/20/24 09:25> Date/Time: 09/20/24 09:24 <Ben Garza MD - Last Filed: 09/20/24 09:25> Surgeon: Delicia Mcdonald MD <Ben Garza MD - Last Filed: 09/20/24 09:25> Pre Op Diagnosis: abnormal uterine bleeding <Ben Garza MD - Last Filed: 09/20/24 09:25> Patient Data Age: 48 Gender: F Height: 1.57 m Weight: 74.9 kg <Ben Garza MD - Last Filed: 09/20/24 09:25> Last Vital Signs Temp 97.2 F L 09/20/24 08:45 Pulse 79 09/20/24 08:45 Resp 16 09/20/24 08:45 BP 131/71 09/20/24 08:45 Pulse Ox 100 09/20/24 08:45 O2 Del Method Room Air 09/20/24 08:45 <Ben Garza MD - Last Filed: 09/20/24 09:25> Allergies Allergy/AdvReac Type Severity Reaction Status Date / Time No Known Allergies Allergy Verified 09/20/24 09:18 <Ben Garza MD - Last Filed: 09/20/24 09:25> Home Medications ?Medication ?Instructions ?Recorded ?Confirmed ?Type ferrous sulfate 325 mg (65 mg 325 mg PO DAILY 08/03/24 09/20/24 History iron) tablet ([place]-Time) cetirizine 10 mg tablet (24Hour 10 mg PO DAILY 09/13/24 09/20/24 History Allergy) multivitamin (Daily Multi-Vitamin 1 tablet PO DAILY 09/13/24 09/20/24 History tablet) <Ben Garza MD - Last Filed: 09/20/24 09:25> Patient hx anesthesia problems: post op nausea/vomiting <Isac Eaton DO - Last Filed: 09/20/24 09:36> Family hx anesthesia problems: none <Isac Eaton DO - Last Filed: 09/20/24 09:36> Results Review: All pre-operative results and documents have been reviewed as part of the pre-operative evaluation. <Ben Garza MD - Last Filed: 09/20/24 09:25> PMFSH Past Medical History Medical History: Medical History Fibroids Iron deficiency <Ben Garza MD - Last Filed: 09/20/24 09:25> Surgical History Surgical History: Surgical History History of hysteroscopy History of myomectomy History of tubal ligation Hx of appendectomy <Bne Garza MD - Last Filed: 09/20/24 09:25> Family History Family History: Family History Other Arthritis Diabetes mellitus Lupus <Ben Garza MD - Last Filed: 09/20/24 09:25> Social History Social History: Social History Smoking status: Never smoker Alcohol intake: never Substance use: never Substance use type: does not use Do You Feel Safe in your Home?: Yes Lack of Transportation: No Lack of Food: Never True Current Housing: I Have Housing Concerned About Future Housing: No Difficulty Paying Gas/Electric Bills: No Difficulty Paying for Meds: No Currently Unemployed: No Education: Grade School Difficulty w/ Childcare or Family Care: No Living arrangements: with family Occupation/Education: occupation 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 Gender identity (if verbalized by the patient): Female Sexual Orientation (if Verbalized by the Patient): Straight or Heterosexual Spiritual care concerns: Yes (No blood) <Ben Garza MD - Last Filed: 09/20/24 09:25> Anes - Eval Final PreProcedure Day of Procedure 09/20/24 09:24 <Ben Garza MD - Last Filed: 09/20/24 09:25> Patient weight: obese <Ben Garza MD - Last Filed: 09/20/24 09:25> Heart: regular rate and rhythm <Ben Garza MD - Last Filed: 09/20/24 09:25> Lungs: clear to auscultation <Ben Garza MD - Last Filed: 09/20/24 09:25> Airway: Mallampati scale class II and special considerations (crown top left) <Isac Eaton DO - Last Filed: 09/20/24 09:36> Neurological: alert and oriented <Ben Garza MD - Last Filed: 09/20/24 09:25> Last oral intake: >/= 8 hours <Ben Garza MD - Last Filed: 09/20/24 09:25> ASA classification: II <Isac Eaton DO - Last Filed: 09/20/24 09:36> Emergent: no <Ben Garza MD - Last Filed: 09/20/24 09:25> Anesthetic plan: proceed <Ben Garza MD - Last Filed: 09/20/24 09:25> Results Review: All pre-operative results and documents have been reviewed as part of the pre-operative evaluation. <Ben Garza MD - Last Filed: 09/20/24 09:25> Informed Consent: The patient's anesthetic plan and its attendant risks and benefits were discussed with the patient/family/POA. Questions were solicited and answers provided to the satisfaction of the patient/family/POA. <Ben Garza MD - Last Filed: 09/20/24 09:25>
[2024-09-20 09:26] LABS: BEDSIDEPREGUCG Negative (Negative)
[2024-09-20] MEDS: SCOPOLAMINE 1 MG PATCH 1 PATCH TRANSDERM (09:30)
[2024-09-20] MEDS: metroNIDAZOLE 500 MG/ISO 100ML 500 MG/100 ML BAG 100 MG IVPB (10:40)
[2024-09-20] MEDS: ceFAZolin 2 GM/D5W 50 ML 2 GM/50 ML BAG IVPB (10:40)
[2024-09-20] MEDS: LIDO 1%/EPINEPHRINE 1:100,000 50 ML VIAL 30 ML INFILTRATE (11:28)
--- NOTE | 2024-09-20 12:45 | W.PM.PROC2 ---
Procedure Note - Detailed Date of Procedure 09/20/24 Pre-op Diagnosis abnormal uterine bleeding fibroid uterus failed endometrial ablation Post-op Diagnosis Same Procedure Performed Robotic assisted total laparoscopic hysterectomy, bilateral salpingectomy, and cystoscopy Surgeon Delicia Mcdonald MD Unemployment Examiner Erik Anesthesia General and Local (34cc of 1% lido w/ ) Findings Uterus sounded to 8cm; normal cervix. Multiple fibroids throughout the entire uterus. History of bilateral tubal ligation. Normal ovaries. Normal bladder that filled without issue; no defects/masses; bilateral ureteral efflux noted. Good hemostasis at end of case. Uterus, cervix, bilateral tubal ostia: 252g Description of Procedure Lorraine was taken to the operating room where she was placed under general anesthesia without issues. She received 2 g Ancef and 500mg Metronidazole. She was then prepped and draped in the usual sterile fashion in the dorsal lithotomy position with her legs in low Osvaldo stirrups, her arms tucked at her side, with a strap over her chest. A time-out was performed. My attention was turned down below where a Rice catheter was placed. A bivalve speculum was placed within the vagina. The cervix was easily identified and the anterior lip of the cervix was grasped with single-tooth tenaculum. The uterus was then sounded to 8cm. The cervix was serially dilated to allow for the DAISY uterine manipulator; which was placed w/o issue (8cm tip with 3cm cervical ring). My gloves were changed and attention was then turned to the abdomen. A 5 mm trocar was placed under direct visualization at Allen's point without issue. Once intra-abdominal placement was confirmed, the abdomen was insufflated with carbon dioxide gas. An abdominal survey was performed and the above findings were noted. Two additional ports were placed on the right and left side and the camera port was placed supraumbilical under direct visualization without issues. The 5mm port was switched out for the accessory port under direct visualization. The patient was then placed in deep Trendelenburg, with the legs slightly lowered. The robot was then docked. The instruments were placed intra-abdominally under direct visualization. I then un-scrubbed and went to the robotic console. I then started my hysterectomy on the right side. The ureter was easily identified transperitoneally and well out of the surgical field. The fallopian tube was elevated and the mesosalpinx was coagulated and transected. The round ligament was clamped, coagulated, and transected. The uterine ovarian artery was then serially clamped, coagulated, and transected with good hemostasis. The broad ligament was then dissected anteriorly and posteriorly skeletonizing the uterine artery. The bladder flap was then developed on the right side and carried around the left, anteriorly. The uterine artery was then serially clamped and coagulated. Once the vessel was adequately coagulated, it was then transected with good hemostasis. The same procedure was then performed on the left side without complications. The uterus was noted to be devascularized. The bladder flap was verified out of the surgical field and the colpotomy was started anteriorly and continued in a clockwise fashion until the uterus was released. The uterus was removed from the abdomen via the vagina without complications. The vaginal cuff had small bleeders that were made hemostatic without complications. The vaginal cuff was then reapproximated using two separate 0 V lock sutures. TThe pelvis was then irrigated and suctioned free of all clots and debris. Good hemostasis was noted. All instruments were removed from the abdomen and the robot was undocked. I then scrubbed back in and verified that the cuff was intact without any defects. The Rice catheter was then removed. The cystoscope was placed within the bladder, which filled without difficulty. Bilateral ureteral efflux was noted. The bladder was examined and no defects or abnormalities were visualized. The bladder was drained. The cystoscope was removed. The Rice catheter was replaced under aseptic technique. The 4 laparoscopic incisions were reapproximated using 4-0 Monocryl and covered with Dermabond. The laparoscopic incisions were infiltrated with local anesthesia for better pain control. Sponge, lap, instrument, and needle counts were correct at the end the procedure. Patient was awoken from general anesthesia and taken to recovery in a stable conditions with plans of overnight stay. Estimated Blood Loss 30 IV Fluids 1,500 Urine Output 50 Pathology Yes (fibroid uterus, cervix, bilateral fallopian tubes) Complications No immediate complications Condition Stable Disposition Floor [facility] Billing Surgery - Charge Forward: Surgery Billing
--- NOTE | 2024-09-20 15:29 | PC.NURSE ---
1515 This patient, Lorraine Zaidi, was admitted to OB 2nd Floor Room 288-00. Patient/family oriented to hospital policies and general routines including ID bracelet, bed and alarms, visiting hours, pain management, procedures, bathroom and other care routines, personal items, smoking policy, room service/diet, and visiting hours. Information on how to activate the Rapid Response Team has been discussed. Patient/Family are encouraged to report perceived risks to care and to ask questions if they do not understand what they are told or what they should do.
[2024-09-20] MEDS: KETOROLAC 30 MG/ML VIAL (*BKC) IV PUSH ×2 (15:42→21:37)
[2024-09-20] MEDS: DOCUSATE SODIUM 100 MG CAPSULE PO (15:43)
[2024-09-20] MEDS: SIMETHICONE 80 MG TAB.CHEW PO (15:43)
[2024-09-20] MEDS: DEXTROSE 5%/0.45% SOD CHL 1,000 ML 125 ML IV CONT (15:52)
[2024-09-20] MEDS: oxyCODONE HCL (*CRX) 5 MG TAB IR PO ×2 (19:09→20:01)
[2024-09-21] MEDS: ACETAMINOPHEN 500 MG TABLET 1000 MG PO ×2 (03:26→09:04)
[2024-09-21] MEDS: KETOROLAC 30 MG/ML VIAL (*BKC) IV PUSH (03:27)
[2024-09-21 03:48] VITALS: BP 120/69; PULSE 69; RESP 16; TEMP 36.8; O2SAT 98
[2024-09-21 04:00] LABS: Basophils Percent Auto 0.2 % (0.2-1.2); Eosinophils Percent Auto 0.2 % (0-4.4); Hematocrit 31.4 % (37.0-47.0); Hemoglobin 9.5 g/dL (12.0-15.0); Immature Granulocyte Absolute 0.04 K/mm3 (0.00-0.031); Immature Granulocyte Percent A 0.3 % (0-0.5); Lymphocytes Absolute Auto 1.89 K/mm3 (0.9-3.2); Lymphocytes Percent Auto 14.7 % (18.3-44.2); Mean Corpuscular HGB Conc 30.3 g/dl (32-36); Mean Corpuscular Hemoglobin 24.2 pg (26-34); Mean Corpuscular Volume 79.9 fl (80-100); Mean Platelet Volume 9.8 fl (7.4-10.4); Monocytes Absolute Auto 0.9 K/mm3 (0.1-0.6); Monocytes Percent Auto 7.1 % (2.6-8.5); Neutrophils Percent Auto 77.5 % (45.5-73.1); Platelet Count Result 280 k/mm3 (150-375); Red Blood Count 3.93 M/mm3 (4.2-5.4); Red Cell Distribution Width 16.2 % (11.5-14.5); White Blood Count 12.9 K/mm3 (4.5-10.0)
[2024-09-21 04:10] LABS: Anion Gap 8 mmol/L (4-12); Blood Urea Nitrogen 6 mg/dL (7-17); Calcium 8.7 mg/dL (8.4-10.2); Carbon Dioxide 24 mmol/L (22-30); Chloride 105 mmol/L (98-107); Estimated CRCL calculation 97 ml/min; Estimated Glomerular Filt Rate > 60; Glucose 106 mg/dL (65-110); Potassium 4.1 mmol/L (3.4-5.0); Sodium 137 mmol/L (137-145)
[2024-09-21] MEDS: SIMETHICONE 80 MG TAB.CHEW PO (07:00)
[2024-09-21] MEDS: LORATADINE 10 MG TABLET PO (07:01)
[2024-09-21] MEDS: oxyCODONE HCL (*CRX) 5 MG TAB IR PO (07:01)
--- NOTE | 2024-09-21 07:02 | PM.GYNPNOP ---
SLOT FLOOR SUPERVISOR - A/P Assessment and plan (1) S/P laparoscopic hysterectomy: Code(s): Z90.710 - Acquired absence of both cervix and uterus Status: Acute Postoperative Procedures: Procedures Operation Date: 09/20/24 10:00 Actual Procedure Side Surgeon p Robotic Assisted Total Laparoscopic Hysterectomy with Bilateral Salpingectomy, Cystoscopy Delicia Mcdonald MD Postoperative day: 1 Postoperative status: doing well Postoperative plan: routine post-op care, advance diet, voiding trials and discharge Time Spent With Patient Time: Total time spent is greater than 50% in coordination of care (as documented) at patient's floor/unit and/or counseling patient: Time with patient: less than 15 minutes SLOT FLOOR SUPERVISOR- PN:Subj Post-Op Subjective Date/time seen: 09/21/24 07:02 Interval history: POD#1 Lorraine reports doing well today. No issues overnight. Her pain is now controlled with the PO meds. She has not attempted to eat; had some nausea after surgery. She denies any vaginal bleeding. She has not voided yet. She has passed flatus. She has not ambulated yet but denies any symptoms of anemia. Review of Systems Review of Systems: All systems reviewed & are unremarkable except as noted in HPI and below (HPI) Constitutional: Constitutional: Denies chills, Denies fever(s) and Denies headache(s) Eyes: Eyes: Denies change in vision ENT: Denies dizziness and Denies headache(s) Cardiovascular: Cardiovascular: Denies chest pain and Denies rapid heart rate Respiratory: Respiratory: Denies cough Genitourinary: Genitourinary: Denies abnormal vaginal bleeding Neurologic: Denies dizziness and Denies headache(s) Exam Const: General: cooperative, healthy appearing, comfortable and no acute distress Orientation/consciousness: patient oriented x3 Resp: Effort & Inspection: normal respiratory effort Auscultation: clear to auscultation bilaterally Cardio: Rate: regular rate GI: Inspection: normal to inspection and incision ( LSC incisions c/d/i) GI Palp: Yes abdominal tenderness (appropriate) and Yes Soft to palpation Auscultation: normal bowel sounds : Other: normal bleeding on pad Skin: General skin exam: normal color Neuro: General: patient oriented x3 Psych: Appearance: grossly normal Affect: normal affect Attitude: cooperative SLOT FLOOR SUPERVISOR - PN: Obj Data Vital Signs Vital Signs: Vital Signs - 24 hr 09/20/24 08:45 09/20/24 13:03 09/20/24 13:15 Temperature 97.2 F L 97.1 F L Pulse Rate 79 72 70 Respiratory Rate 16 12 12 Blood Pressure 131/71 102/54 L 103/66 Pulse Oximetry 100 100 98 Oxygen Delivery Room Air Simple Face Mask Simple Face Mask Oxygen Flow Rate 10 10 09/20/24 13:18 09/20/24 13:30 09/20/24 13:45 Temperature Pulse Rate 64 62 62 Respiratory Rate 10 L 12 12 Blood Pressure 109/57 L 132/60 121/64 Pulse Oximetry 100 97 Oxygen Delivery Simple Face Mask Simple Face Mask Simple Face Mask Oxygen Flow Rate 10 10 10 09/20/24 14:00 09/20/24 14:15 09/20/24 14:30 Temperature Pulse Rate 62 59 L 61 Respiratory Rate 12 12 12 Blood Pressure 123/62 123/69 127/65 Pulse Oximetry 96 97 97 Oxygen Delivery Room Air Room Air Room Air Oxygen Flow Rate 09/20/24 14:45 09/20/24 15:00 09/20/24 15:45 Temperature Pulse Rate 59 L 60 67 Respiratory Rate 12 14 18 Blood Pressure 122/67 120/62 Pulse Oximetry 98 98 100 Oxygen Delivery Room Air Room Air Room Air Oxygen Flow Rate 09/20/24 15:45 09/20/24 19:18 09/20/24 19:18 Temperature 98.0 F 98.0 F Pulse Rate 67 53 L Respiratory Rate 18 16 Blood Pressure 130/71 130/68 Pulse Oximetry 100 100 Oxygen Delivery Room Air Oxygen Flow Rate 09/20/24 23:30 09/21/24 03:48 Temperature 98.7 F 98.3 F Pulse Rate 81 69 Respiratory Rate 16 16 Blood Pressure 100/57 L 120/69 Pulse Oximetry 98 98 Oxygen Delivery Oxygen Flow Rate Intake/Output Intake/Output: Intake & Output 09/18/24 09/19/24 09/20/24 09/21/24 23:59 23:59 23:59 23:59 Intake Total 1914.6 Output Total 1999 300 Balance -85.4 -300 Meds/Results Medications: Active Medications Generic Name Dose Route Start Last Admin Trade Name Freq PRN Reason Stop Dose Admin Acetaminophen 1,000 mg 09/20/24 18:00 09/21/24 03:26 Acetaminophen 500 Mg Tablet PO 1,000 mg Q6HR SYD Administration Docusate Sodium 100 mg 09/20/24 17:00 09/20/24 15:43 Docusate Sodium 100 Mg Capsule PO 100 mg BID SYD Administration Dextrose/Sodium Chloride 1,000 mls @ 125 mls/hr 09/20/24 15:05 09/20/24 16:59 Dextrose 5% Sodium Chloride 0.45% IV CONT 125 mls/hr .Q8H SYD Infusion Ibuprofen 600 mg 09/21/24 12:00 Ibuprofen 600 Mg Tablet PO Q6HR SYD Loratadine 10 mg 09/21/24 09:00 Loratadine 10 Mg Tablet PO QAM [facility] Multivitamins Therapeutic 1 tablet 09/21/24 09:00 Multivitamins Therapeutic Tab (*Bkc) PO DAILY [facility] Naloxone HCl 0.1 mg 09/20/24 15:05 Naloxone Hcl 0.4 Mg/Ml Vial IV PUSH Q2M PRN Respiratory rate less than 10 Ondansetron HCl 4 mg 09/20/24 15:05 Ondansetron Inj 4 Mg/2 Ml Vial IV PUSH Q6H PRN Nausea And Vomiting Oxycodone HCl 5 mg 09/20/24 15:05 09/21/24 07:01 Oxycodone Hcl (*Crx) 5 Mg Tab Ir PO 5 mg Q4H PRN Administration Pain Rated 4-6 Oxycodone HCl 10 mg 09/20/24 15:05 Oxycodone Hcl (*Crx) 5 Mg Tab Ir PO Q6H PRN Pain Rated 7-10 Simethicone 80 mg 09/20/24 17:00 09/21/24 07:00 Simethicone 80 Mg Tab.Chew PO 80 mg TIDWM SYD Administration Labs 09/21/24 03:39 09/21/24 03:39 Labs: Laboratory Results - last 24 hr 09/20/24 09/21/24 08:30 03:39 WBC 12.9 H RBC 3.93 L Hgb 9.5 L D Hct 31.4 L MCV 79.9 L MCH 24.2 L MCHC 30.3 L RDW 16.2 H Plt Count 280 MPV 9.8 Immature Gran % (Auto) 0.3 Neut % (Auto) 77.5 H Lymph % (Auto) 14.7 L [place] % (Auto) 7.1 Eos % (Auto) 0.2 Baso % (Auto) 0.2 Lymph # (Auto) 1.89 [place] # (Auto) 0.9 H Eos # (Auto) 0.0 Baso # (Auto) 0.0 Abs Immat Gran (auto) 0.04 H Absolute Neuts (auto) 10.0 H Absolute Nucleated RBC 0.000 Nucleated RBC % 0.0 Sodium 137 Potassium 4.1 Chloride 105 Carbon Dioxide 24 Anion Gap 8 BUN 6 L D Creatinine 0.57 L Estim Creat Clear Calc 97 Estimated GFR > 60 Glucose 106 Calcium 8.7 POC Urine HCG, Qual Negative
[2024-09-21 08:04] VITALS: BP 111/59; PULSE 66; RESP 18; TEMP 36.9; O2SAT 97
[2024-09-21 08:24] LABS: Hematocrit 31.4 % (37.0-47.0); Hemoglobin 9.6 g/dL (12.0-15.0)
--- NOTE | 2024-09-21 08:50 | P.PNAN_ITS ---
Anes - Prog Note Post-Op Date/Time: 09/21/24 08:50 Cardiovascular status: normal Respiratory status: normal Airway patency: baseline Mental status: baseline Post-Op hydration status: normal Vital Signs: Last Vital Signs Temp 36.9 C 09/21/24 08:04 Pulse 66 09/21/24 08:04 Resp 18 09/21/24 08:04 BP 111/59 L 09/21/24 08:04 Pulse Ox 97 09/21/24 08:04 O2 Del Method Room Air 09/21/24 08:04 O2 Flow Rate 10 09/20/24 13:45 Pain Score (VAS): 2 I/O: Intake & Output 09/20/24 09/21/24 09/21/24 23:59 07:59 15:59 Intake Total 214.6 Output Total 1700 300 Balance -1485.4 -300 Laboratory Tests 09/21/24 08:18 09/21/24 03:39 09/20/24 09/21/24 09/21/24 08:30 03:39 08:18 WBC 12.9 H RBC 3.93 L Hgb 9.5 L D 9.6 L Hct 31.4 L 31.4 L MCV 79.9 L MCH 24.2 L MCHC 30.3 L RDW 16.2 H Plt Count 280 MPV 9.8 Immature Gran % (Auto) 0.3 Neut % (Auto) 77.5 H Lymph % (Auto) 14.7 L [place] % (Auto) 7.1 Eos % (Auto) 0.2 Baso % (Auto) 0.2 Lymph # (Auto) 1.89 [place] # (Auto) 0.9 H Eos # (Auto) 0.0 Baso # (Auto) 0.0 Abs Immat Gran (auto) 0.04 H Absolute Neuts (auto) 10.0 H Absolute Nucleated RBC 0.000 Nucleated RBC % 0.0 Sodium 137 Potassium 4.1 Chloride 105 Carbon Dioxide 24 Anion Gap 8 BUN 6 L D Creatinine 0.57 L Estim Creat Clear Calc 97 Estimated GFR > 60 Glucose 106 Calcium 8.7 POC Urine HCG, Qual Negative Post-procedural complaints: none Patient Feedback: Patient satisfied with anesthetic care.
[2024-09-21] MEDS: DOCUSATE SODIUM 100 MG CAPSULE PO (09:04)
[2024-09-21] MEDS: IBUPROFEN 600 MG TABLET PO (09:04)
[2024-09-21] MEDS: LACTATED RINGERS 1,000 ML 999 ML IV CONT (10:45)
--- NOTE | 2024-09-21 11:20 | PC.NURSE ---
Patient voided post catheter removal this AM. Hat was not in toilet to measure. Patient voided 100mL a second time post cath removal.
--- NOTE | 2024-09-21 11:23 | PC.NURSE ---
Patient states she has passed gas and is feeling better after 500mL LR fluid bolus. Dizziness improving.
--- OUTSIDE RECORDS SUMMARY | 2024-09-23 11:12 | XMS_ITS | Clinical Summary ---
[facility] Address [address] [place] [address] Care Team Providers Care Upper Doubler Name Role Phone Unavailable Primary Care Provider Unavailabl e Allergies No known active allergies Medications ferrous sulfate 325 mg (65 mg iron) tablet Take 325 mg by mouth daily. Active Active Problems No known active problems Family History Medical History Relation Name Comments Cancer Father Cancer Sister 2 Relation Name Status Comments Brother 1 Alive Brother 2 Alive Father Alive Mother Alive Sister 1 Alive Sister 2 Alive Social History Tobacco Use Types Packs/Day Years Used Date Smoking Tobacco: Never Smokeless Tobacco: Never Alcohol Use Standard Drinks/Week Comments Never 0 (1 standard drink = 0.6 oz pur e alcohol) Comments Unknown Sex and Gender Information Value Date Recorded Sex Assigned at Not on file Legal Sex Female 10:58 AM CDT Gender Identity Not on file Sexual Orientation Not on file Last Filed Vital Signs Vital Sign Reading Time Taken Comments Blood Pressure 130/67 05/28/2019 1:04 PM CDT Pulse 89 05/28/2019 1:04 PM CDT Temperature 37 ??C (98.6 ??F) 05/28/2019 1:04 PM CDT Respiratory Rate 22 05/28/2019 1:04 PM CDT Oxygen Saturation 98% 05/28/2019 1:04 PM CDT Inhaled Oxygen Concentration - - Weight 69.3 kg (152 lb 12.8 oz) 05/28/2019 1:04 PM CDT Height 160 cm (5' 3 ) 05/28/2019 1:04 PM CDT Body Mass Index 27.07 05/28/2019 1:04 PM CDT Plan of Treatment Health Maintenance Due Date Last Done Comments DTAP/TDAP/TD VACCINES (1 - Tdap) 12/15/1994 HEPATITIS B VACCINES (1 of 3 - 19+ 3-dose series) 11/30 CERVICAL CANCER SCREENING 12/15/2005 BREAST CANCER SCREENING 2015 COLORECTAL SCREENING 12/15/2020 Colorectal Cancer Screening 12/15/2020 FIT-DNA Q 3 years 12/15/2020 FIT/FOBT Q 1 year 12/15/2020 Flex Sig/CT Colonography Q 5 years 12/15/2020 INFLUENZA VACCINE (#1) 2024
--- OUTSIDE RECORDS SUMMARY | 2024-09-23 11:12 | XMS_ITS | Clinical Summary ---
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 Gender Identity Not on file Sexual Orientation Not on file Plan of Treatment Health Maintenance Due Date Last Done Comments Hepatitis C Virus (HCV) Screening 1975 TdaP Immunization 1975 Hepatitis B Immunization (1 of 3 - 19+ 3-dose series) 12/15/1994 Pap Smear 12/15/1996 Cervical Cancer Screening (CCS) 12/15/2005 HPV/Cotest 12/15/2005 Discussion re Starting/Frequency of Mammograms 2015 Colonoscopy 12/15/2020 Colorectal Cancer Screening 12/15/2020 Influenza Immunization (#1) 05/02/202407/02, 06/16/2020, 09/06/2019 SARS-COV-2 Immunization ( season) 2024 08/05/2021, 12/05/2020, 11/10/2020 Respiratory Syncytial Virus (RSV) Immunization (Adult) (1 - 1-dose 75+ series) 12/15/2050 Meningococcal Immunization (ACWY) Aged Out No longer eligible b ased on patient's age to complete this topic Pneumococcal Immunization Combined Aged Out No longer eligible b ased on patient's age to complete this topic Rotavirus Immunization Aged Out No lo nger eligible based on patient's age to complete this topic
== END 2024-09-21 12:00 | disposition home or self-care (01) ==
LOC: ANHSURGERY 13:21 → ANHOB2 15:13
PROVIDERS: PCP Physician Assistant; Visit Provider Obstetrics & Gynecology
PROC: (CPT 58573; principal; 2024-09-20 10:00)
DX: D25.0 Submucous leiomyoma of uterus (principal); D25.1 Intramural leiomyoma of uterus; D25.2 Subserosal leiomyoma of uterus; R10.2 Pelvic and perineal pain; N92.0 Excessive and frequent menstruation with regular cycle
CPT/HCPCS: 58573; S2900; 36415; 80048; 85014; 85018; 85025; 88307; 99199; A9270; J0690; J1100; J1171; J1836; J1885; J2003; J2004; J2250; J2371; J2405; J2704; J3010; J7030; J7120

== ENCOUNTER 2024-11-04 15:41 | Outpatient (CLI) | payer BC, SELFPAY ==
--- OUTSIDE RECORDS SUMMARY | 2024-11-04 16:46 | XMS_ITS | Clinical Summary ---
[facility] Address [address] [facility] [place] [address] Care Team Providers Care Sampling Theory Teacher Name Role Phone Unavailable Primary Care Provider [...] 89 05/28/2019 1:04 PM CDT Temperature 37 C (98.6 F) 05/28/2019 1:04 PM CDT Respiratory Rate 22 [...]
--- OUTSIDE RECORDS SUMMARY | 2024-11-04 16:46 | XMS_ITS | Clinical Summary ---
Author Organization [facility] Care Team Providers Care Indian Blanket Weaver Name Role Phone Unavailable Primary Care Provider Unavailabl e Social History Tobacco Use Types Packs/Day Years Used Date Smoking Tobacco: Never Assessed Comments Unknown Sex and Gender Information Value Date Recorded Sex Assigned at Not on file Legal Sex Female 12:48 PM [employer] Gender Identity Not on file Sexual Orientation [...]
== END 2024-11-04 15:42 | disposition home or self-care (01) ==
LOC: ANHLAB 15:44
PROVIDERS: PCP Physician Assistant; Visit Provider Obstetrics & Gynecology
DX: R30.0 Dysuria (principal)
CPT/HCPCS: 87086

== ENCOUNTER 2024-11-30 16:20 | Outpatient (CLI) | payer BC, SELFPAY ==
--- NOTE | ~2024-11-30 | MM_ITS ---
EXAMINATION: MM screening [facility] BI w guicho HISTORY: Screening TECHNIQUE: Craniocaudal and mediolateral oblique 3-D tomosynthesis images were obtained and synthetic 2-D images were generated. CAD analysis was submitted and interpreted. COMPARISON: 09/17/2022 BREAST PARENCHYMAL COMPOSITION: Dense: The breasts are heterogeneously dense, which may obscure small masses FINDINGS: Stable diffuse benign-appearing punctate monomorphic bilateral breast calcifications. There is no evidence of suspicious mass, calcification, or architectural distortion to suggest malignancy in either breast. There has been no suspicious interval change. IMPRESSION: 1. No mammographic evidence of malignancy. 2. Recommend routine screening mammography in one year. BI-RADS Category 2: Benign finding(s). Reviewed, dictated and finalized at location A.
--- OUTSIDE RECORDS SUMMARY | 2024-11-30 17:29 | XMS_ITS | Clinical Summary ---
[facility] Address [address] [place] [address] Care Team Providers Care Sox Analyst Name Role Phone Unavailable Primary Care Provider [...] of 3 - 19+ 3-dose series) 11/30 PAP SMEAR 12/15/1996 CERVICAL CANCER SCREENING 12/15/2005 HPV/Cotest (30-65) 12/15/2005 PAP SMEAR 12/15/2005 BREAST CANCER SCREENING 2015 COLORECTAL SCREENING 12/15/2020 Colorectal Cancer Screening 12/15/2020 FIT-DNA Q 3 years 12/15/2020 FIT/FOBT Q 1 year 12/15/2020 Flex Sig/CT Colonography Q 5 years 12/15/2020 INFLUENZA VACCINE (#1) 2024
--- OUTSIDE RECORDS SUMMARY | 2024-11-30 17:29 | XMS_ITS | Data Portability ---
Author Organization [facility] MAYELA [place] [facility] Address [address] [facility] [place] [address] Care Team Providers Care Oracle Soa Developer Name Role Phone PATRICIADALE Primary Care Provider Assessment No assessment recorded. Plan of Treatment Reminders Order Date Submit Date Provider Last Modified By Organization Details Last Modified Time Details Appointments None recorded. Lab HbA1c (hemoglobin A1c), blood 2023 024 ADALGISA LABKY, Tara jesus alberto [address], [address], [place], [address], 4 12:13:50 CMP, serum or plasma 2023 024 ADALGISA LABKDRP, [facility] ShoorKjesus alberto [address], [address], [place], [address], 4 23:07:43 TSH, ultra-sensi tive, serum 2023 024 ADALGISA [facility], [facility]7 [employer] [employer], [address], [place], [address], 4 12:13:49 lipid panel, serum 2023 024 ADALGISA LABKDRP, [address], [address], [place], [address], 4 23:07:42 iron + total iron-bindin g capacity (TIBC), serum 2023 024 ADALGISA LABKY, [facility] ShoorKjesus alberto [address], [address], [place], [address], 4 12:13:49 ferritin, serum or plasma 2023 024 ADALGISA GRAY, Tara [address], [address], [place], [address], 4 12:13:51 CBC w/ auto diff 2023 024 ADALGISA GRAY, Tara [address], [address], [place], [address], 4 23:07:43 noninvasive colorectal cancer DNA + occult blood screening, QL, stool 2022 023 [facility] (Cologuard Orders Only), [address], [address], [place], [address], 3 23:34:38 iron + total iron-bindin g capacity (TIBC), serum 2022 023 ADALGISA ACEVEDOBILL, Tara [address], [address], [place], [address], 3 09:20:30 CBC w/ auto diff 2022 023 ADALGISA ACEVEDOBILL, Tara [address], [address], [place], [address], 3 18:19:35 ferritin, serum or plasma 2022 023 ADALGISA ACEVEDOBILL, Tara [address], [address], [place], [address], 3 09:20:31 Referral None recorded. Procedures None recorded. Surgeries None recorded. Imaging MAMMO, screening, bilateral [address] [facility], [address] [place] [address] [address], [place], [address], 4 08:09:53 US, transvagina l [address], [address], [place], [address], 4 08:09:53 Medication Orders amoxicillin 875 mg-potassiu m clavulanate 125 mg tablet 2022 023 [facility] #[id number], [address], [place], [place], [id number], 3 09:34:11 Flonase Allergy Relief 50 mcg/actuati on nasal spray,suspe nsion 2022 023 [facility] #[id number], [address] , [place], [place], [id number], 4 08:55:32 benzonatate 100 mg capsule 2022 023 [facility] #[id number], [address], [place], [place], [id number], 4 08:55:26 Patient TargetsNo targets recorded. Patient Instructions Encounter Date Encounter Id Patient Instructions Last Modified By Organization Details Last Modified Time 03/25/2023 [id number] A healthy lifestyle: care instructions Not available 03/25/2023 11:03:37 I have reviewed the patient's medical record and the note from this clinical encounter. I was available by phone for the duration of the visit. I agree with the assessment and plan with the following addendum: [none]. Tarik Sagastume MD [email or web address] Not available 03/26/2023 16:27:58 04/19/2024 [id number] A healthy lifestyle: care instructions Not available 04/19/2024 09:16:12 Reason for Referral None Reported. Results Created Date Observation Date Name Description Value Unit Range Abnormal Flag Note LastModifiedBy Organization Detail LastModifiedTime 03/25/20 23 03/25/2023 CBC WITH DIFFE RENTI AL/PL ATELE T WBC 7.4 K/uL 3.4-10 .8 Not Available [facility] [address] [place], [address], 03/25/2023 18:19:35 03/25/20 23 03/25/2023 CBC WITH DIFFE RENTI AL/PL ATELE T RBC 4.3 M/uL 4.2-5. 4 Not Available [facility] [address] [place], [address], 03/25/2023 18:19:35 03/25/20 23 03/25/2023 CBC WITH DIFFE RENTI AL/PL ATELE T hemoglobin 10.2 g/dL 11.5-1 5.5 below low normal Not Available [facility] [address] [place], [address], 03/25/2023 18:19:35 03/25/20 23 03/25/2023 CBC WITH DIFFE RENTI AL/PL ATELE T hematocrit 34.4 % 36.0-4 8.0 below low normal Not Available [facility] [address] [place], [address], 03/25/2023 18:19:35 03/25/20 23 03/25/2023 CBC WITH DIFFE RENTI AL/PL ATELE T MCV 79 fL 80-95 below low normal Not Available [facility] [address] [place], [address], 03/25/2023 18:19:35 03/25/20 23 03/25/2023 CBC WITH DIFFE RENTI AL/PL ATELE T MCH 24 pg 27-32 below low normal Not Available [facility] [address] [place], [address], 03/25/2023 18:19:35 03/25/20 23 03/25/2023 CBC WITH DIFFE RENTI AL/PL ATELE T MCHC 30 g/dL 32-36 below low normal Not Available [facility] [address] [place], [address], 03/25/2023 18:19:35 03/25/20 23 03/25/2023 CBC WITH DIFFE RENTI AL/PL ATELE T RDW 16.8 % 11.5-1 4.5 above high normal Not Available [facility] [address] [place], [address], 03/25/2023 18:19:35 03/25/20 23 03/25/2023 CBC WITH DIFFE RENTI AL/PL ATELE T platelets 365 K/uL 155-37 9 MPV 10.6 FL 8.9-1 2.7 N Not Available [facility] [address] [place], [address], 03/25/2023 18:19:35 03/25/20 23 03/25/2023 CBC WITH DIFFE RENTI AL/PL ATELE T neutrophils 53.7 % 40.0-7 4.0 Not Available [facility] [address] [place], [address], 03/25/2023 18:19:35 03/25/20 23 03/25/2023 CBC WITH DIFFE RENTI AL/PL ATELE T lymphs 30.8 % 14.0-4 6.0 Not Available [facility] [address] [place], [address], 03/25/2023 18:19:35 03/25/20 23 03/25/2023 CBC WITH DIFFE RENTI AL/PL ATELE T monocytes 7.7 % 4.0-12 .0 Not Available [facility] [address] [place], [address], 03/25/2023 18:19:35 03/25/20 23 03/25/2023 CBC WITH DIFFE RENTI AL/PL ATELE T eos 6 % 0-5 above high normal Not Available [facility] [address] [place], [address], 03/25/2023 18:19:35 03/25/20 23 03/25/2023 CBC WITH DIFFE RENTI AL/PL ATELE T basos 0.9 % 0.0-1. 0 Not Available [facility] [address] [place], [address], 03/25/2023 18:19:35 03/25/20 23 03/25/2023 CBC WITH DIFFE RENTI AL/PL ATELE T neutrophils (absolute) 4.0 K/uL 1.4-7. 0 Not Available [facility] [address] [place], [address], 03/25/2023 18:19:35 03/25/20 23 03/25/2023 CBC WITH DIFFE RENTI AL/PL ATELE T lymphs (absolute) 2.3 K/uL 0.7-3. 1 Not Available [facility] [address] [place], [address], 03/25/2023 18:19:35 03/25/20 23 03/25/2023 CBC WITH DIFFE RENTI AL/PL ATELE T monocytes(ab solute) 0.6 K/uL 0.1-0. 9 Not Available [facility] [address] [place], [address], 03/25/2023 18:19:35 03/25/20 23 03/25/2023 CBC WITH DIFFE RENTI AL/PL ATELE T eos (absolute) 0.4 K/uL 0.0-0. 4 Not Available [facility] [address] [place], [address], 03/25/2023 18:19:35 03/25/20 23 03/25/2023 CBC WITH DIFFE RENTI AL/PL ATELE T baso (absolute) 0.1 K/uL 0.0-0. 3 Not Available [facility] [address] [facility], [place], [address], 03/25/2023 18:19:35 03/25/20 23 03/25/2023 CBC WITH DIFFE RENTI AL/PL ATELE T immature granulocytes 1.2 % Not Available [facility] [address] [facility], [place], [address], 03/25/2023 18:19:35 03/25/20 23 03/25/2023 CBC WITH DIFFE RENTI AL/PL ATELE T immature grans (abs) 0.1 K/uL Not Available [facility] Department [address] [place], [address], 03/25/2023 18:19:35 03/25/20 23 03/25/2023 CBC WITH DIFFE RENTI AL/PL ATELE T NRBC 0 % Not Available [facility] [address] [facility], [place], [address], 03/25/2023 18:19:35 03/25/20 23 03/26/2023 IRON AND TIBC iron bind.cap.(TI BC) 366 ug/dL 250-45 0 Not Available [facility] ([facility]) [address] [place], [address], 03/26/2023 09:20:30 03/25/20 23 03/26/2023 IRON AND TIBC UIBC 314 ug/dL 131-42 5 Not Available [facility] ([facility]) [address] [place], [address], 03/26/2023 09:20:30 03/25/20 23 03/26/2023 IRON AND TIBC iron 52 ug/dL 27-159 Not Available [facility] ([facility]) [address] [place], [address], 03/26/2023 09:20:30 03/25/20 23 03/26/2023 IRON AND TIBC iron saturation 14 % 15-55 below low normal Not Available [facility] ([facility]) [address] [facility], [place], [address], 03/26/2023 09:20:30 03/25/20 23 03/26/2023 AMINA TIN ferritin 6 NG/mL 15-150 below low normal Not Available [facility] ([facility]) [address] [facility], [place], [address], 03/26/2023 09:20:31 04/03/20 23 04/03/2023 COLOG UARD cologuard result reportable Negati ve negati ve NEGAT VINCENT TEST RESUL T. A negat vincent Colog uard resul t indic ates a low likel ihood that a color ectal cance r (CRC) or advan mickey adeno ma (lizabeth omato us polyp s with more advan mickey pre-m align ant featu res) is prese nt. The [facility] e that a perso n with a negat vincent Colog uard test has a color ectal cance r is less than 1 in 1500 (nega tive predi ctive value >99.9 %) or has an advan mickey adeno ma is less than 5.3% (nega tive predi ctive value 94.7% ). These data are based on a prosp ectiv e cross -sect ional study of 10,00 0 indiv idual s at [facility] risk for color ectal cance r who were scree cristina with both Colog uard and colon oscop y. (Magui Hernandes et al, N Engl J Med 2014; 370(1 4):12 86-12 97) The brando l value (refe rence range ) for this assay is negat vincent. COLOG UARD RE-SC REENI NG RECOM MENDA TION: Perio dic color ectal cance r scree maged is an impor tant part of preve ntive healt hcare for asymp tomat ic indiv idual s at [facility] risk for color ectal cance r. Follo wing a negat vincent Colog uard resul t, the Ameri can Cance r Socie ty and U.S. Multi -Soci ety Task Force scree maged guide lines recom mend a Colog uard re-sc elissa giron inter major of 3 years . Refer ences : Ameri can Cance r Socie ty Guide line for Color ectal Cance r Scree maged: https ://ww w.can cer.o rg/ca ncer/ colon -rect al-ca ncer/ detec tion- diagn osis- stagi ng/ac s-rec ommen datio ns.ht ml.; Krzysztof HUDDLESTON, Chad curran CR, Nory AlemanK, Color ectal Cance r Scree maged: Recom menda tions for Physi cians and Patie nts from the U.S. Multi -Soci ety Task Force on Color ectal Cance r Scree maged , Am Love caruso y 2017; 112:1 016-1 030. TEST DESCR IPTIO N: [place] site algor ithmi c tmomie sis of stool DNA-b iodelmi chaudhry with hemog lobin immun oassa y. Quant itati ve value s of indiv idual bioma rkers are not repor table and are not assoc iated with indiv idual bioma rker resul t refer ence range s. Colog uard is inten ded for color ectal cance r scree maged of adult s of eithe r sex, 45 years or older , who are at [facility] for color ectal cance r (CRC) . Colog uard has been appro mike for use by the U.S. FDA. The perfo rmanc e of Colog uard was estab lishe d in a cross secti onal study of [facility] adult s aged 50-84 . Colog uard perfo rmanc e in patie nts ages 45 to 49 years was estim ated by sub-g roup tommie sis of near- age group s. Colon oscop ies perfo rmed for a posit vincent resul t may find as the most clini michael signi fican t lesio n: color ectal cance r [4.0% ], advan mickey adeno ma (incl uding sessi le mahog[place] ata polyp s great er than or equal to 1cm diame ter) [20%] or non- advan mickey adeno ma [31%] ; or no color ectal neopl francoise [45%] . These estim ates are deriv ed from a prosp ectiv e cross -sect ional anthony lynne study of 0 indiv idual s at [facility] risk for color ectal cance r who were scree critsina with both Colog uard and colon oscop y. (Magui Alberto al, N Engl J Med 2014; 370(1 4):12 86-12 97.) Colog uard may produ ce a false negat vincent or false posit vincent resul t (no color ectal cance r or preca ncero us polyp prese nt at colon oscop y follo w up). A negat vincent Colog uard test resul t does not guara ntee the absen ce of CRC or advan mickey adeno ma (pre- cance r). The curre nt Colog uard scree maged inter major is every 3 years . (Amer ican Cance r Socie ty and U.S. Multi -Soci ety Task Force ). Colog uard perfo rmanc e data in a 0 patie nt pivot al study using colon oscop y as the refer ence metho d can be [facility]es [facility] locat ion: www.e xactl abs.c om/re suljairo . Addit ional descr iptio n of the Colog uard test proce ss, warni ngs and preca ution s can be found at www.c ologu aravind.c om. Not Available [employer] (Cologuard Orders Only) [address], [place], [address], 04/12/2023 23:34:38 04/19/20 24 04/19/2024 LIPID PANEL cholesterol, total 288 mg/dL 100-19 9 above high normal Not Available [facility] [address] [place], [address], 04/19/2024 23:07:42 04/19/20 24 04/19/2024 LIPID PANEL triglyceride s 220 mg/dL 0-149 above high normal Not Available [facility] [address] [place] [address], [address], 04/19/2024 23:07:42 04/19/20 24 04/19/2024 LIPID PANEL HDL cholesterol 68 mg/dL 40-999 Not Available [facility] Department [address] [place], [address], 04/19/2024 23:07:42 04/19/20 24 04/19/2024 LIPID PANEL VLDL cholesterol colby 44 mg/dL 5-40 above high normal Not Available [facility] [address] [place] [address], [address], 04/19/2024 23:07:42 04/19/20 24 04/19/2024 LIPID PANEL LDL chol calc (nih) 205 mg/dL 0-99 above high normal Not Available [facility] [address] [place] [address], [address], 04/19/2024 23:07:42 04/19/20 24 04/19/2024 COMP. METAB OLIC PANEL (14) glucose 100 mg/dL 70-99 above high normal Not Available [facility] [address] [place] [address], [address], 04/19/2024 23:07:43 04/19/20 24 04/19/2024 COMP. METAB OLIC PANEL (14) BUN 10 mg/dL 6-24 Not Available [facility] [address] [place] [address], [address], 04/19/2024 23:07:43 04/19/20 24 04/19/2024 COMP. METAB OLIC PANEL (14) creatinine 0.47 mg/dL 0.76-1 .27 below low normal Not Available [facility] [address] [place] [address], [address], 04/19/2024 23:07:43 04/19/20 24 04/19/2024 COMP. METAB OLIC PANEL (14) eGFR 117 >=60 Units for eGFR value s are mL/mi n/1.7 3 The eGFR Calcu latio n has not been valid ated for patie nts under the age of 18. If test resul ts are displ ayed for a patie nt under the age of 18, disre heather that value . Not Available [facility] [address] [place] [address], [address], 04/19/2024 23:07:43 04/19/20 24 04/19/2024 COMP. METAB OLIC PANEL (14) BUN/creatini ne ratio 22 9-23 Not Available [facility] Department [address] [place] [address], [address], 04/19/2024 23:07:43 04/19/20 24 04/19/2024 COMP. METAB OLIC PANEL (14) sodium 139 mmol/ L 134-14 4 Not Available [facility] [address] [place] [address], [address], 04/19/2024 23:07:43 04/19/20 24 04/19/2024 COMP. METAB OLIC PANEL (14) potassium 4.7 mmol/ L 3.5-5. 2 Not Available [facility] [address] [place] [address], [address], 04/19/2024 23:07:43 04/19/20 24 04/19/2024 COMP. METAB OLIC PANEL (14) chloride 103 mmol/ L 96-106 Not Available [facility] [address] [place] [address], [address], 04/19/2024 23:07:43 04/19/20 24 04/19/2024 COMP. METAB OLIC PANEL (14) carbon dioxide, total 23 mmol/ L 20-29 Not Available [facility] [address] [place] [address], [address], 04/19/2024 23:07:43 04/19/20 24 04/19/2024 COMP. METAB OLIC PANEL (14) calcium 9.3 mg/dL 8.7-10 .2 Not Available [facility] [address] [place], [address], 04/19/2024 23:07:43 04/19/20 24 04/19/2024 COMP. METAB OLIC PANEL (14) protein, total 6.6 g/dL 6.0-8. 5 Not Available [facility] [address] [place], [address], 04/19/2024 23:07:43 04/19/20 24 04/19/2024 COMP. METAB OLIC PANEL (14) albumin 4.4 g/dL 3.9-4. 9 Not Available [facility] [address] [place] [address], [address], 04/19/2024 23:07:43 04/19/20 24 04/19/2024 COMP. METAB OLIC PANEL (14) globulin, total 2.2 g/dL 1.5-4. 5 Not Available [facility] [address] [place], [address], 04/19/2024 23:07:43 04/19/20 24 04/19/2024 COMP. METAB OLIC PANEL (14) A/G ratio 2.0 1.2-2. 2 Not Available [facility] [address] [place], [address], 04/19/2024 23:07:43 04/19/20 24 04/19/2024 COMP. METAB OLIC PANEL (14) bilirubin, total 0.6 mg/dL 0.0-1. 2 Not Available [facility] [address] [place], [address], 04/19/2024 23:07:43 04/19/20 24 04/19/2024 COMP. METAB OLIC PANEL (14) alkaline phosphatase 82 IU/L 44-121 Not Available [facility] Department [address] [place], [address], 04/19/2024 23:07:43 04/19/20 24 04/19/2024 COMP. METAB OLIC PANEL (14) AST (SGOT) 21 IU/L 0-40 Not Available [facility] Department [address] [place], [address], 04/19/2024 23:07:43 04/19/20 24 04/19/2024 COMP. METAB OLIC PANEL (14) ALT (SGPT) 20 IU/L 0-32 Not Available [facility] Department [address] [place], [address], 04/19/2024 23:07:43 04/19/20 24 04/19/2024 CBC WITH DIFFE RENTI AL/PL ATELE T WBC 7.3 x10e3 /uL 3.4-10 .8 Not Available [facility] [address] [place], [address], 04/19/2024 23:07:43 04/19/20 24 04/19/2024 CBC WITH DIFFE RENTI AL/PL ATELE T RBC 4.35 x10e6 /uL 3.77-5 .28 Not Available [facility] [address] [place], [address], 04/19/2024 23:07:43 04/19/20 24 04/19/2024 CBC WITH DIFFE RENTI AL/PL ATELE T hemoglobin 10.8 g/dL 11.1-1 5.9 below low normal Not Available [facility] [address] [place], [address], 04/19/2024 23:07:43 04/19/20 24 04/19/2024 CBC WITH DIFFE RENTI AL/PL ATELE T hematocrit 36.5 % 34.0-4 6.6 Not Available [facility] [address] [place], [address], 04/19/2024 23:07:43 04/19/20 24 04/19/2024 CBC WITH DIFFE RENTI AL/PL ATELE T MCV 84 fL 79-97 Not Available [facility] [address] [place], [address], 04/19/2024 23:07:43 04/19/20 24 04/19/2024 CBC WITH DIFFE RENTI AL/PL ATELE T MCH 24.8 pg 26.6-3 3.0 below low normal Not Available [facility] [address] [place], [address], 04/19/2024 23:07:43 04/19/20 24 04/19/2024 CBC WITH DIFFE RENTI AL/PL ATELE T MCHC 29.6 g/dL 31.5-3 5.7 below low normal Not Available [facility] [address] [place], [address], 04/19/2024 23:07:43 04/19/20 24 04/19/2024 CBC WITH DIFFE RENTI AL/PL ATELE T RDW 15.0 % 11.5-1 4.5 above high normal Not Available [facility] [address] [place], [address], 04/19/2024 23:07:43 04/19/20 24 04/19/2024 CBC WITH DIFFE RENTI AL/PL ATELE T platelets 349 x10e3 /uL 150-45 0 Not Available [facility] [address] [place], [address], 04/19/2024 23:07:43 04/19/20 24 04/19/2024 CBC WITH DIFFE RENTI AL/PL ATELE T neutrophils 61 % notest b. Not Available [facility] [address] [place], [address], 04/19/2024 23:07:43 04/19/20 24 04/19/2024 CBC WITH DIFFE RENTI AL/PL ATELE T lymphs 24 % notest b. Not Available [facility] [address] [place], [address], 04/19/2024 23:07:43 04/19/20 24 04/19/2024 CBC WITH DIFFE RENTI AL/PL ATELE T monocytes 8 % notest b. Not Available [facility] [address] [place], [address], 04/19/2024 23:07:43 04/19/20 24 04/19/2024 CBC WITH DIFFE RENTI AL/PL ATELE T eos 6 % notest b. Not Available [facility] [address] [place] [address], [address], 04/19/2024 23:07:43 04/19/20 24 04/19/2024 CBC WITH DIFFE RENTI AL/PL ATELE T basos 1 % notest b. Not Available [facility] [address] [place] [address], [address], 04/19/2024 23:07:43 04/19/20 24 04/19/2024 CBC WITH DIFFE RENTI AL/PL ATELE T neutrophils (absolute) 4.5 x10e3 /uL 1.4-7. 0 Not Available [facility] [address] [place] [address], [address], 04/19/2024 23:07:43 04/19/20 24 04/19/2024 CBC WITH DIFFE RENTI AL/PL ATELE T lymphs (absolute) 1.7 x10e3 /uL 0.7-3. 1 Not Available [facility] [address] [place] [address], [address], 04/19/2024 23:07:43 04/19/20 24 04/19/2024 CBC WITH DIFFE RENTI AL/PL ATELE T monocytes(ab solute) 0.6 x10e3 /uL 0.1-0. 9 Not Available [facility] [address] [place], [address], 04/19/2024 23:07:43 04/19/20 24 04/19/2024 CBC WITH DIFFE RENTI AL/PL ATELE T eos (absolute) 0.4 x10e3 /uL 0.0-0. 4 Not Available [facility] [address] [place], [address], 04/19/2024 23:07:43 04/19/20 24 04/19/2024 CBC WITH DIFFE RENTI AL/PL ATELE T baso (absolute) 0.1 x10e3 /uL 0.0-0. 2 Not Available [facility] [address] [place], [address], 04/19/2024 23:07:43 04/19/20 24 04/19/2024 CBC WITH DIFFE RENTI AL/PL ATELE T immature granulocytes 0.3 % notest b. Not Available [facility] [address] [place], [address], 04/19/2024 23:07:43 04/19/20 24 04/19/2024 CBC WITH DIFFE RENTI AL/PL ATELE T immature grans (abs) 0.0 x10e3 /uL 0.0-0. 1 Not Available [facility] [address] [place], [address], 04/19/2024 23:07:43 04/19/20 24 04/19/2024 CBC WITH DIFFE RENTI AL/PL ATELE T NRBC 0 % 0-0 Not Available [facility] [address] [place] [address], [address], 04/19/2024 23:07:43 04/19/20 24 04/20/2024 TSH RFX ON ABNOR MAL TO FREE T4 TSH 1.560 uIU/m L 0.450- 4.500 Not Available [facility] ([facility]) [address] [place], [address], 04/20/2024 12:13:48 04/19/20 24 04/20/2024 IRON AND TIBC iron bind.cap.(TI BC) 402 ug/dL 250-45 0 Not Available [facility] ([facility]) [address] [place], [address], 04/20/2024 12:13:49 04/19/20 24 04/20/2024 IRON AND TIBC UIBC 349 ug/dL 131-42 5 Not Available [facility] ([facility]) [address] [place], [address], 04/20/2024 12:13:49 04/19/20 24 04/20/2024 IRON AND TIBC iron 53 ug/dL 27-159 Not Available [facility] ([facility]) [address] [place], [address], 04/20/2024 12:13:49 04/19/20 24 04/20/2024 IRON AND TIBC iron saturation 13 % 15-55 below low normal Not Available [facility] ([facility]) [address] [place], [address], 04/20/2024 12:13:49 04/19/20 24 04/20/2024 HEMOG LOBIN A1C hemoglobin A1C 6.3 % 4.8-5. 6 above high normal Predi abete s: 5.7 - 6.4 Diabe mica: >6.4 Glyce alonso contr ol for adult s with diabe mica: <7.0 Not Available [facility] ([facility]) [address] [place], [address], 04/20/2024 12:13:50 04/19/20 24 04/20/2024 AMINA TIN ferritin 8 NG/mL 15-150 below low normal Not Available [facility] ([facility]) [address] [place], [address], 04/20/2024 12:13:51 06/09/20 24 06/09/2024 US, trans vagin al No observ ation record ed. [address], [place], [address], 06/14/2024 14:40:58 06/09/20 24 06/09/2024 US, trans vagin al No observ ation record ed. [address], [place], [address], 06/14/2024 14:40:59 12/01/19 25 11/30/2024 MAMMO , scree maged, bilat eral No observ ation record ed. [address], [place], [address], 11/30/2024 17:59:08 Result Notes None recorded. Problems Name Problem SNOMED Code Status Onset Date Resolution Date Notes Provider Name and Address Organization Details Recorded Time Anemia 388327999 Active 2018 Keke Jackson MA [facility], [place] - SIF 9 10:41:09 Uterine leiomyoma 66423997 Active 2020 [facility] Attn: Geeta brown,[address] [facility], [place], [address], [facility] - [facility] 1 11:44:50 Prediabetes 389417822 Active 2021 DARLING NEWBERRY Attn: Geeta brown,[address] [facility], [place], [address], [place] [facility] 2 16:24:55 Fatigue 41937670 Active 2021 DARLING NEWBERRY Attn: Geeta brown,[address] [facility], [place], [address], [facility] - [facility] 2 16:25:08 Thoracic back pain 044533413 Active 2021 DARLING NEWBERRY Attn: Geeta brown,[address] [facility], [place], [address], [place] [facility] 2 09:47:24 Low back pain 630309835 Active 2021 DARLING NEWBERRY Attn: Geeta brown,[address] [facility], [place], [address], [place] [facility] 2 09:47:25 History of surgery 267563750 Active 2021 DARLING NEWBERRY Attn: Geeta brown,[address] [facility], [place], [address], [place] [facility] 2 09:19:08 Iron deficiency anemia 02682851 Active 2022 DARLING NEWBERRY Attn: Geeta brown,[address] [facility], [place], [address], [place] [facility] 3 11:01:29 Varicose veins of lower extremity 76789099 Active 2022 DARLING NEWBERRY Attn: Geeta brown,[address] [facility], [place], [address], [place] [facility] 3 11:03:20 Pain in pelvis 34136094 Active 2023 DARLING NEWBERRY Attn: Geeta brown,[address] [facility], [place], [address], [place] [facility] 4 09:16:53 Overweight 005835162 Active 2023 DARLING NEWBERRY Attn: Geeta brown,[address] [facility], [place], [address], [place] [facility] 4 09:16:57 Problem Notes None recorded. Procedures Surgical History Date Name Laterality Status Provider Name and Address Organization Details Recorded Time Appendectomy completed Keke Jackson [place] [facility] 07/12/2019 10:43:41 Imaging Results Imaging Date Name Status LastModified by Organization Details LastModified Time 06/09/2024 US, transvaginal completed [facility] [address], [place], [address], 06/14/2024 14:40:58 06/09/2024 US, transvaginal completed [facility] [address], [place], [address], 06/14/2024 14:40:59 11/30/2024 MAMMO, screening, bilateral active [facility] [address], [place], [address], 11/30/2024 17:59:08 Procedure Notes None recorded. Medical Equipment None Reported. Allergies No known drug allergies Medications Name Sig Start Date Stop Date Status Note LastModified by Organization Details LastModified Time eq mucus dm max er tab TAKE 1 TABLET BY MOUTH EVERY 12 HOURS 04/19 completed Not Available Not Available Not Available binaxnow cov kit home mica 07/10 completed Not Available Not Available Not Available medroxyprog esterone 10 mg tablet TAKE 1 TABLET BY MOUTH DAILY FOR 10 DAYS STARTING THE THIRD WEEK OF THE MONTH 07/10 completed Not Available Not Available Not Available azithromyci n 250 mg tablet TAKE 2 TABLETS BY MOUTH ON DAY 1, AND THEN TAKE 1 TABLET BY MOUTH ONCE A DAY ON DAY 2 THROUGH DAY 5 04/19 completed Not Available Not Available Not Available ibuprofen 800 mg tablet TAKE 1 TABLET BY MOUTH THREE TIMES DAILY NEEDED FOR PAIN 04/19 completed Not Available Not Available Not Available benzonatate 200 mg capsule TAKE 1 CAPSULE BY MOUTH THREE TIMES DAILY NEEDED FOR COUGH 08/14 completed Not Available Not Available Not Available prednisone 20 mg tablet TAKE 2 TABLETS BY MOUTH DAILY FOR 5 DAYS 08/14 completed Not Available Not Available Not Available ciprofloxac in 500 mg tablet Take 1 tablet every 12 hours by oral route for 7 days. 09/15 completed Not Available Not Available Not Available sulfamethox azole 800 mg-trimetho prim 160 mg tablet TAKE 1 TABLET BY MOUTH EVERY 12 HOURS 10/28 completed Not Available Not Available Not Available benzonatate 100 mg capsule TAKE 1 CAPSULE BY MOUTH THREE TIMES DAILY FOR 3 DAYS 04/19 completed Not Available Not Available Not Available omeprazole 20 mg capsule,del ayed release TAKE 1 CAPSULE BY MOUTH EVERY DAY 04/19 completed Not Available Not Available Not Available methylpredn isolone 4 mg tablets in a dose pack TAKE BY MOUTH DIRECTED ON INSIDE OF PACKAGE 04/19 completed Not Available Not Available Not Available fluticasone propionate 50 mcg/actuati on nasal spray,suspe nsion SHAKE LIQUID AND USE 1 SPRAY IN EACH NOSTRIL EVERY DAY 04/19 completed Not Available Not Available Not Available amoxicillin 875 mg-potassiu m clavulanate 125 mg tablet TAKE 1 TABLET BY MOUTH EVERY 12 HOURS FOR 7 DAYS 03/28 completed Not Available Not Available Not Available FeroSul 325 mg (65 mg iron) tablet Take 1 tablet every day by oral route for 60 days. 2023 active Not Available Not Available Not Avai lable iron 65 mg-65 mg-folic acid 1,000 mcg (24)-vitB with C#12-succ. tablet Take 1 tablet twice a day by oral route. 09/15 completed Not Available Not Available Not Available [place] 0.25 mg-0.035 mg tablet Take 1 tablet every day by oral route. 09/15 completed Not Available Not Available Not Available Blisovi Fe 09/20 (28) 1 mg-20 mcg (21)/75 mg (7) tablet TAKE 1 TABLET BY MOUTH EVERY DAY 05/14 completed Not Available Not Available Not Available ID NOW COVID-19 Test Kit TEST DIRECTED TODAY 07/10 completed Not Available Not Available Not Available BinaxNOW COVID-19 Ag Self Test kit TEST DIRECTED TODAY 04/19 completed Not Available Not Available Not Available Vitals Date Recorded Body height Body mass index (BMI) Body weight Heart rate Oxygen saturation Oxygen saturation in Arterial blood by Pulse oximetry Systolic blood pressure Diastolic blood pressure Provider Name and Address Organization Details Last Updated DateTime 3 160.02 cm 28.9 kg/m2 31291.5 6 g 59 /min 98 % 98 % 102 mm[Hg] 60 mm[Hg] Silva Peña [place] [facility] 3 16:17:19 Date Recorded Body height Body mass index (BMI) Body weight Heart rate Oxygen saturation Oxygen saturation in Arterial blood by Pulse oximetry Systolic blood pressure Diastolic blood pressure Provider Name and Address Organization Details Last Updated DateTime 3 160.02 cm 29 kg/m2 15879.3 6 g 76 /min 98 % 98 % 114 mm[Hg] 66 mm[Hg] Kristen Fontana MA [facility] 3 10:33:11 Date Recorded Body height Body mass index (BMI) Body weight Heart rate Oxygen saturation Oxygen saturation in Arterial blood by Pulse oximetry Systolic blood pressure Diastolic blood pressure Provider Name and Address Organization Details Last Updated DateTime 4 160.02 cm 29.9 kg/m2 36608.1 1 g 80 /min 98 % 98 % 124 mm[Hg] 76 mm[Hg] Silva Peña MA [facility] 4 08:56:39 Social History Question Answer Notes LastModified by Organizat ion Details LastModified Time Tobacco Smoking Status Never Smoker Keke Jackson MA [facility], [facility] 07/12/2019 10:43:25 What Is Your Level Of Alcohol Consumption? None Information not available 07/16/2021 In The 14 Days Before Symptom Onset, Have You Had Close Contact With A Laboratory-confirm ed COVID-19 While That Case Was Ill? No Information n ot available 11/14/2020 In The 14 Days Before Symptom Onset, Have You Had Close Contact With A Person Who Is Under Investigation For COVID-19 While That Person Was Ill? No Information not available 11/14/2020 Have You Been To An Area Known To Be High Risk For COVID-19? No Information not available 05/14/2022 What Was The Date Of Your Most Recent Tobacco Screening? 03/25/2023 [email or web address] Information not available 03/25/2023 What Is Your Relationship Status? Information not available 11/14/2020 Do You Have Smoke And Carbon Monoxide Detectors In Your Home? Yes Information not available 11/14/2020 Are You Passively Exposed To Smoke? No Information no t available 07/16/2021 Has Tobacco Cessation Counseling Been Provided? Yes Information not available 11/14/2020 On What Date Was Tobacco Cessation Counseling Provided? 03/25/2023 [email or web address] Information not available 03/25/2023 Do You Or Have You Ever Used Any Other Forms Of Tobacco Or Nicotine? No Information not available 11/14/2020 Sex: Female Functional Status None recorded. Mental Status None recorded. Family History Relationship Description Onset Age of this Age Resolved Age Notes LastModified by Organization Details LastModified Time Mother Lupus erythematosu s [email or web address] Not available 2018 10:42:59 Mother Diabetes mellitus dx this year Not available 08/08/2021 11:52:42 Father Malignant tumor of prostate [email or web address] Not available 2018 10:43:21 Medical History Condition Response Coronary Artery Disease N Other N Atrial Fibrillation N High Blood Pressure N Kidney or Bladder Problems N Thyroid Problems N GI Problems N Depression N COPD N Blood Clots N Skin Problems N Anemia Y Heart Attack (NE) N Anxiety Disorder N Diabetes N Muscle, Joint, or Bone Problems N Seizures/Epilepsy N Acid Reflux (GERD) N Cancer N Stroke N Asthma N Allergies N High Cholesterol Y Hepatitis N Liver Disease N Headaches N Heart Failure N Osteoporosis N Gynecological History Statement/Question Response Date of Last Mammogram Flow Heavy Date of LMP 06/13/2022 Menses Monthly Y Date of Last Pap Smear Duration of Flow (days) 8 Age at Menarche 11 Current Control Method None LMP Definite Obstetrics History GPAL:G 3 P 3 0 0 3 Type Value Multiple Births 0 Full Term 3 Induced 0 Spontaneous 0 Premature 0 Living 3 Ectopics 0 Total 3 Immunizations Vaccine Type Date Status Note Provider Nam e and Address Organization Details Recorded Time COVID-19, mRNA, LNP-S, PF, 100 mcg/0.5mL dose or 50 mcg/0.25mL dose 1 completed DIMAS [place], [place] [facility] 07/16/2021 10:11:49 COVID-19, mRNA, LNP-S, PF, 100 mcg/0.5mL dose or 50 mcg/0.25mL dose 1 completed DIMAS [place], [place] [facility] 07/16/2021 10:11:56 Influenza, split virus, quadrivalent, PF 0 completed Not Available [facility] 09/18/2019 02:39:15 Influenza, split virus, quadrivalent, preservative 0 completed DIMAS [place], [place] [facility] 06/16/2020 15:58:36 Influenza, split virus, quadrivalent, PF 1 completed DIMAS [place], [place] [facility] 07/16/2021 11:18:08 Influenza, split virus, quadrivalent, preservative 2 completed DIMAS [place], [place] [facility] 07/09/2022 15:40:01 Tdap 2 completed DARLING NEWBERRY Attn: Accounting,[address] [facility], [place], [address], [place] [facility] 07/15/2022 09:42:23 Influenza, split virus, quadrivalent, PF 3 completed DIMAS [place]ff, [place] [facility] 06/20/2023 12:18:26 Influenza, split virus, trivalent, PF 4 completed DIMAS [place], [place] [facility] 06/15/2024 11:13:06 Past Encounters Encounter ID Performer Location Encounter Start Date Encounter Closed Date Diagnosis/Indication Diagnosis SNOMED-CT Code Diagnosis ICD10 Code Diagnosis Note [id number] DARLING NEWBERRY [facility] [address] [place] [address] 07/12/2019 10:10:08 07/13/2019 14:21:01 Increased frequency of urination 398641023 R35.0 one week of increased urination. Suprapubic tenderness on exam. - UA Iron defic iency anemia 50881114 D50.9 checking CBC AND IRON. Last reading was 10 hgb in may. She is feeling tired and has some petechiae on arms.- sent with labs to go to [facility] Cholesterol screening 27 4525033 Z13.220 patient has never been screened for cholestero l. She is overweight . No family history of DM2. She does have increased urination. Menorrhagia 934852777 N9 2.0 patient had HGB of 5 due to heavy periods. We discussed starting the pill to lighten periods. She agreed. She is also taking iron. patient has her tubes tied.- checking TSH for possible cause of heavy periods- f/u in 3 months- one pill per day. if forgets one day take 2 the next day at the same times- call with questions [id number] DARLING NEWBERRY [facility] [address] [place] [address] 09/06/2019 10:59:52 09/07/2019 10:03:22 Dysuria 33729148 R30.9 dysuria x one week. flank pain and suprapubic pain on exam. Patient went to ER last month and was found to have UTI with sepsis. Temperatur e 99. patient states she is not sexually active, drinks lots of water, does not hold her urine. If she continues to have more UTI will send to urology.- UA- Culture- f/u if not improving. go to hospital if unable to make urine, pain worsens, symptoms do not improve Prediabetes 617551068 R7 3.03 patient has had increased thirst and urination Administra tion of influenza vaccine 82050463 Z23 may take tylenol or NSAID for pain or swelling. [id number] Matt Fontana MA [facility] [address] [place] [address] 10/19/2019 09:53:28 10/19/2019 10:21:02 Hypothyroidism 65640783 E03.9 Iron defic iency anemia 26205557 D50.9 checking CBC AND IRON. Last reading was 10 hgb in may. She is feeling tired and has some petechiae on arms.- sent with labs to go to [facility] [id number] DARLING NEWBERRY [facility] [address] [place] [address] 01/10/2020 10:53:09 01/11/2020 10:19:25 Increased frequency of urination 764257381 R35.0 one week of increased urination and dysuria. denies fever and chills. - UA- stay hydrated- keep area dry adn clean- void before and after sex [id number] Silva Peña MA [facility] [address] [place] [address] 06/16/2020 15:46:42 06/16/2020 21:21:40 Adult health examination 955142883 Z00.00 [id number] DARLING NEWBERRY [facility] [address] [place] [address] 07/26/2020 14:46:25 07/28/2020 08:21:02 Pyelonephritis 21957772 N12 negative UA. Will cutlure. due to CVA tenderness and and suprapubic pain will treat for pyelonephr itis. Cannot r/u kidney stone and patient is advised to go to ER if symptoms worsen or do not improve Acute urin neftaly tract infection 298434864 N39.0 [id number] Fredrick Knapp MD [facility] [address] [place] [address] 09/15/2020 11:18:29 09/15/2020 15:11:39 Chronic back pain 662970211 G89.29 [id number] Fredrick Knapp MD [facility] [address] [place] [address] 10/04/2020 10:27:01 10/04/2020 14:52:32 Low back pain 375570984 M54.5 [id number] DARLING NEWBERRY [facility] [address] [place] [address] 11/14/2020 15:48:31 11/17/2020 09:39:17 Chronic interstitial cystitis 847725629 N30.10 Patient with painful bladder, increased frequency and urgency. Normal work up including UA and US. - may be interstiti al cystitis - discussed foods to avoid and f/u in one month Adult [facility] examination 058142520 Z00.00 Patient presents for labs and physical. vitals wnl. ROS + for fatigue. will draw labs. - exercise 30 mins 5x week - patient is Prediabeti c, A1C 5.9 - discussed diet - due for pap, scheduled Family his tory of lupus erythematosus 070945852 Z84.0 patient with family history of lupus and increased fatigue Screening mammography 24 981065 Z12.31 given order for mammogram [id number] Marcella Knowles MA [facility] [address] [place] [address] 11/15/2020 09:14:49 11/17/2020 11:33:55 [id number] DARLING NEWBERRY [facility] [address] [place] [address] 11/21/2020 14:56:03 11/28/2020 06:12:28 Gynecologic examination 19741518 Z01.419 patient presents for pap. All paps have been normal. No complaints today. normal breast- no nipple discharge, lumps noted. On pap normal mucosa, no atropthy, A grade 1 uterine prolap is noted. Obtained pap successful ly. 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 She continue having pressure pain in pelvic area. She did not f/u with urology as they did not call. She prefers to stay in [facility]. defers train operations supervisor exam today as ER did pelvic exam last week. Anemia 050076674 D64.9 hgb 07 november 2020. Patient did not f/u. will recheck today Prediabetes 742241309 R7 3.03 patient has had increased thirst and urination. A1C elevated to 5.9 Pain in pelvis 57277012 R10.2 Patient with >2 weeks of pelvic pain. evaluated by ER and given bactrim for UTI, UA was negative that day. defers pelvic exam today. tender on pelvic exam. - US given to patient- nuswab- r/o sti-ER IF pain worsens , develops fever Administra tion of influenza vaccine 32125445 Z23 may take tylenol or NSAID for pain or swelling. [id number] DARLING NEWBERRY [facility] [address] [place] [address] 08/08/2021 11:14:32 08/09/2021 09:44:16 Anemia 305899461 D64.9 hgb 9.8 07/16/21 and 07 november 2020. will recheck today. she is taking iron as prescribed . starting treatment again for heavy bleeding. she was treated before but stopped. I am referring to obgyn for fibroid and enlarged uterus. Uterine leiomyoma 738986 05 D25.9 uterus enlarged, measures 11x 6.4 x 6cm. largest uterine fribrodis 3.7 cm. endometria l complex measures 9mm. starting contracept ion again today. patient agrees to take it. negative urine test. denies any sexual activity. LMP 07/21/21 [id number] DARLING NEWBERRY [facility] [address] [place] [address] 05/14/2022 15:43:13 05/15/2022 15:08:27 Anemia 218470731 D64.9 hgb 9.8 07/16/21 and 07 november 2020. will recheck today. she is taking iron as prescribed . Uterine leiomyoma 288556 05 D25.9 uterus enlarged, measures 11x 6.4 x 6cm. largest uterine fibrodis 3.7 cm. endometria l complex measures 9mm. following obgyn. has f/u may 27 2022, Prediabetes 421328075 R7 3.03 A1C 6.1 08/2021 Paresthesia of foot 3090 86369 R20.2 tingling sensation at night time. Fatigue 64072241 R53.83 [id number] Beth Kasper CMA [facility] [address] [place] [address] 07/05/2022 10:14:28 07/10/2022 13:29:59 Administration of influenza vaccine 03628302 Z23 may take tylenol or NSAID for pain or swelling. [id number] DARLING NEWBERRY [facility] [address] [place] [address] 07/10/2022 14:39:48 07/15/2022 12:34:02 Anemia 525068818 D64.9 hgb 9.8 07/16/21 and 07 november 2020. Uterine leiomyoma 526044 05 D25.9 uterus enlarged, measures 11x 6.4 x 6cm. largest uterine fibroids 3.7 cm. endometria l complex measures 9mm. following obgyn. Fibroidect sagrario scheduled august 2022. Paresthesia of foot 3090 52137 R20.2 tingling sensation at night time. on exam both feet were checked. normal pulses, color, and monofilame nt exam. Thoracic back pain 94276 8004 M54.6 Low back pain 743395068 M54.50 low back pain x months that is non radiating and w/o red-flag symptoms. start with xray and PT.- Avoid heavy lifting and over-exert ion.- Avoid bed-rest do some gentle stretching and continue with normal activities .- Use ice to relieve pain, 15 minutes every 2 4 hours.- Use heat to relax muscles, 15 minutes every 2 4 hours.- Sleep on a firm surface and avoid lying on the sofa. Epigastric pain 68484106 R10.13 epigastric pain . admits to eating spicy and tomato based foods. denies diarrhea, constipati on, fever, chills, night sweats . f/u one month. trial omperazole . 1.Avoid lying flat 3 to 4 hours after eating or drinking. 2.Elevate the head of bed 4-8 inches. 3.Avoid tight clothing around the waist. 4.Decrease dietary fat intake. 5. Avoid acidic foods (citrus and tomato-bas ed products), alcohol, caffeinate d beverages, chocolate, onions, garlic, salt, and peppermint oil. 6. Avoid large meals. 7. Avoid drinking coffee, or carbonated beverages. 8. Weight loss can help with symptoms, try to diet and exercise. HIV screening 167905532 Z11.4 screeninh Administra tion of diphtheria, pertussis, and tetanus vaccine 601243648 Z23 administer ed today Depression screening 171 407100 Z13.31 negative Overweight 566825819 E66 .3 [id number] DARLING NEWBERRY [facility] [address] [place] [address] 07/24/2022 15:47:29 07/29/2022 16:23:12 Acute sinusitis 79586151 J01.90 - hydrate and rest - ibuprofen or tylenol for body aches - z aida as prescribed - tessalon perles to control cough - f/u if not improving or worsening. - ER if trouble breathing, worsening chest pain, 103 fever without improvemen t with NSAID/tyle nol. [id number] DARLING NEWBERRY [facility] [address] [place] [address] 08/14/2022 10:53:23 08/19/2022 16:37:58 Overweight 220772810 E66.3 discussed healthy diet Cholesterol screening 27 1368360 Z13.220 repeat. History of surgery 18278 5003 Z98.890 patient had surgery 08/12/22 by Delicia Mcdonald at [place] to remove fibroids causing menorrhagi a and anemia. normal pathology. com complicati ons. she has f/u on 08/27/22. [id number] DARLING NEWBERRY [facility] [address] [place] [address] 10/28/2022 15:37:30 10/28/2022 16:59:34 Acute sinusitis 57417650 J01.90 - hydrate and rest- ibuprofen or tylenol for body aches- tessalon perles to control cough- f/u if not improving or worsening. - ER if trouble breathing, worsening chest pain, 103 fever without improvemen t with NSAID/tyle nol. [id number] Tarik hebert MD [facility] [address] [place] [address] 03/25/2023 10:26:18 03/25/2023 10:52:14 Iron deficiency anemia 38208198 D50.9 screen for anemia due to 8 day periods and going through pads every 2 hours, feeling more fatigue.-f /u obgyn(07/03 023) HGB 12, iron sat 12, ferritin 9 Screening for malignant neoplasm of colon 365513173 Z12.11 denies family history of colon cancer, bloody stools, cahnge in BMagrees to cologuard Varicose v eins of lower extremity 75896801 I83.93 R varicose veins with dependent edema in evening. no swelling noted today.comp ression sockseleva te feet when able Insomnia 275348257 G47.0 0 Discussed sleep hygiene. f/u in one month if nor improving. - no tv, electronic s in room - go to bed at same time every night - Avoid eating 1-2 hours before bed - Do no have any caffeine after 3 pm - if unable to sleep she is to leave room and read for 15 minutes. May repeat this multiple times. Goal is not to associate room with anxiety or work Overweight 089416013 E66 .3 discussed healthy diet [id number] Silva Peña MA [facility] [address] [place] [address] 06/20/2023 10:27:28 06/20/2023 12:37:00 Administration of influenza vaccine 09404490 Z23 may take tylenol or NSAID for pain or swelling. [id number] DARLING NEWBERRY [facility] [address] [place] [address] 04/19/2024 08:52:42 04/19/2024 09:17:38 Iron deficiency anemia 83564603 D50.9 repeat lans -f/u obgyn(07/03 023) HGB 12, iron sat 12, ferritin 9 Overweight 477505152 E66 .3 discussed healthy diet Screening mammography 24 655330 Z12.31 given order for mammogram Pain in pelvis 84968978 R10.2 Patient with >2 weeks of pelvic pain. denies uti sx. midly tender on exam w/o rebound. understand sx and when to go to ER. - US given to patient-ER IF pain worsens , develops fever [id number] Kristen Fontana MA [facility] [address] [place] [address] 06/15/2024 11:05:41 06/15/2024 11:16:55 Health Concerns Section Related Observation LastModified by Organization Detai ls LastModified Time None Recorded Concern Status LastModified by Organization Details LastModified Time None Recorded Advance Directives Directive None Recorded Payers Encounter Date Sequence Insurance Name Policy Number Policy Goodson Covered Member ID Goodson Member ID Guarantor Name 10/28/2022 2 [place] [facility] Lorraine Zaidi [id number] Lorraine Dejuan 03/25/2023 2 [place] [facility] Lorraine Dejuan [id number] Lorraine Djeuan 06/20/2023 2 [place] [facility] Lorraine Dejuan [id number] Lorraine Dejuan 04/19/2024 2 [place] [facility] Lorrainebradley Heranndezca [id number] Lorraine Dejuan 04/19/2024 1 [facility] ON OR AFTER 03/01/21 (MEDICAID REPLACEMENT - HMO) Lorraine Dejuan [id number] Lorraine Dejuan 06/15/2024 2 [place] [facility] Lorrainebradley Hernandezca [id number] Lorraine Dejuan 06/15/2024 1 [facility] ON OR AFTER 03/01/21 (MEDICAID REPLACEMENT - HMO) Lorrainebradley Hernandezca [id number] Lorraine Dejuan Notes Date Note Type Note Provider Name and Address Organization Details Recorded Time 10/28/2022 text/html patient had covi d on 10/12/22 and started getting better but then got worse. She has been dealing with congestion, dry cough in the morning everyday. this is causing headaches. DARLING NEWBERRY Attn: Accounting,[address] [place], [address], [place] [facility] 10/29/2022 11:02:09 03/25/2023 text/html Patient presents for lab re-check and surgery f/u had surgery to remove fibroids on 08/12/22 . no complications. states pathology came back normal (in chart). Was feeling better until November where she started to have heavy bleeding again. periods are now 8 days compared to 14 days. She fill a pad in 2-3 hours. taking iron only week of period. She has been feeling more tired than before. She admits not being able to sleep for the last month right away. she reads the bible before bed and denies watching tv or being on phone. She drinks one cup of coffee in morning and denies any other caffeine. She avoids eating before bed. Denies depression or anxiety. she would like lipids repeated Tarik Sagastume MD Attn: Accounting,[address] [facility], [place], [address], [facility] 03/26/2023 16:28:02 04/19/2024 text/html Patient presents for lab re-check LMP 04/09/24-04/13/20 24 but started bleeding again today. She c/o of dull pelvic pain. 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 She is taking OTC iron every 3rd day. Endorses normal energy with occasional fatigue. had surgery to remove fibroids on 08/12/22 . no complications. states pathology came back normal (in chart). She would like her yearly labs checked. DARLING NEWBERRY Attn: Accounting,[address] [facility], [place], [address], [facility] 04/19/2024 09:17:31 OBGyn Episode No OBEpisode recorded.
--- OUTSIDE RECORDS SUMMARY | 2024-11-30 17:29 | XMS_ITS | Clinical Summary ---
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 Gender Identity Not on file Sexual Orientation [...] Screening 12/15/2020 Influenza Immunization (#1) 05/02/202407/02, 06/16/2020, 09/06/2019, Additional history exists SARS-COV-2 Immunization ( season) 2024 08/05/2021, 12/05/2020, 11/10/2020 Respiratory Syncytial Virus (RSV) Immunization (Adult) (1 - 1-dose 75+ series) 12/15/2050 Meningococcal Immunization (ACWY) Aged Out No longer eligible based on patient's age to complete this topic Pneumococcal Immunization Combined Aged Out No longer eligible based on patient's age to complete this topic Rotavirus Immunization Aged Out No lo nger eligible based on patient's age to complete this topic
== END 2024-11-30 16:21 | disposition home or self-care (01) ==
LOC: ANHIMG 16:21
PROVIDERS: PCP Physician Assistant; Visit Provider Obstetrics & Gynecology
DX: Z12.31 Encounter for screening mammogram for malignant neoplasm of breast (principal)
CPT/HCPCS: 77063; 77067

== ENCOUNTER 2024-12-03 09:19 | Emergency (ER) | payer BC, SELFPAY ==
[2024-12-03 09:28] VITALS: BP 109/80; PULSE 78; RESP 16; TEMP 36.3; O2SAT 99
--- NOTE | 2024-12-03 09:53 | ED_ITS ---
HPI - URI/Sore Throat General Chief Complaint: Upper Respiratory Infection Stated Complaint: left ear pain,congested,itchy throat Source: patient and RN notes reviewed Mode of arrival: ambulatory Limitations: no limitations History of Present Illness HPI Narrative: 48-year-old female presents to the Express a complaint with upper respiratory symptoms for the last 3 days. She says she has congestion, sore throat, cough, and left ear pain and decreased hearing to the left side. She says she has been at home over the last 9 weeks because she is recovering from a hysterectomy. She has been using Zyrtec over the last month for allergy symptoms. She says she has been using Q-tips in her ears to clean her ears out. She denies any chest pain, dizziness, shortness of breath. Related Data Home Medications ?Medication ?Instructions ?Recorded ?Confirmed ?Last Taken ?Type multivitamin (Daily Multi-Vitamin 1 tablet PO DAILY 09/13/24 12/03/24 09/16/24 History tablet) Allergies Allergy/AdvReac Type Severity Reaction Status Date / Time No Known Allergies Allergy Verified 12/03/24 09:23 Review of Systems Review of Systems: CONSTITUTIONAL: Denies fever, chills, or sweats. EYES: Denies visual changes, redness, or discharge. ENT: Denies rhinorrhea. Positive for congestion, sore throat, and otalgia, left ear pain. CARDIOVASCULAR: Denies chest pain, palpitations, or edema. RESPIRATORY: Positive for cough and negative for dyspnea. GASTROINTESTINAL: Denies abdominal pain, nausea, vomiting, or diarrhea. GENITOURINARY: Denies dysuria or hematuria. SKIN: Denies rash or itching. MUSCULOSKELETAL: Denies back pain, joint pain, or myalgia. NEUROLOGIC: Denies headache, numbness, or weakness. PSYCHIATRIC: Denies anxiety or depression. All other systems reviewed are negative, except as documented in HPI. [facility] Past Medical History Medical History Fibroids Iron deficiency Surgical History Surgical History S/P laparoscopic hysterectomy Robotic assisted total laparoscopic hysterectomy, bilateral salpingectomy, and cystoscopy 09/20/2024 History of myomectomy History of hysteroscopy Hx of appendectomy History of tubal ligation Family History Family History Other Arthritis Diabetes mellitus Lupus Social History Social History Smoking status: Never smoker Alcohol intake: never Substance use: never Substance use type: does not use Do You Feel Safe in your Home?: Yes Lack of Transportation: No Lack of Food: Never True Current Housing: I Have Housing Concerned About Future Housing: No Difficulty Paying Gas/Electric Bills: No Difficulty Paying for Meds: No Currently Unemployed: No Education: Grade School Difficulty w/ Childcare or Family Care: No Living arrangements: with family Occupation/Education: occupation 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 There is no relevant family history pertinent to the patient complaint. Exam Narrative: GENERAL: This is a well-nourished, well-developed adult, in no apparent distress. They are non ill-appearing, nontoxic appearing. HEAD: normocephalic, atraumatic. EYES: Sclera clear/white. Vision is grossly intact. EARS: External ears normal, auditory canals with excessive cerumen and without drainage bilaterally. Left ear canal is erythematous. Unable to visualize right TM. Left TM is visualized without erythema or perforation. Hearing decreased to the left side. NOSE: External nose normal with no obvious nasal discharge, nasal turbinates with mild erythema, no rhinorrhea. THROAT: Mucous membranes moist, posterior pharynx mildly injected without draina ge. Uvula midline.. NECK: Neck supple, non-tender without lymphadenopathy, masses or thyromegaly. CARDIOVASCULAR: Regular rate and rhythm without murmurs, gallops, or rubs. RESPIRATORY: Clear to auscultation. Breath sounds equal bilaterally. No wheezes, rales, or rhonchi. SKIN: warm, Dry, intact with no suspicious lesions or rash, good texture and turgor. NEURO: awake, alert, and oriented to person, place and time. There were no obvious focal neurologic abnormalities. EXTREMITIES: No joint tenderness, effusion, or edema noted. Course Course Emergency Course: Patient is aware of diagnosis, understands and agrees to treatment plan. Anticipatory guidance given. Patient agrees to follow-up as directed and is aware of reasons to seek care at the emergency department. Portions of this record may have been created with voice recognition software Level of Care: Express Care Visit Vital Signs Vital signs: Vital Signs Temperature 97.4 F L 12/03/24 09:28 Pulse Rate 78 12/03/24 09:28 Respiratory Rate 16 12/03/24 09:28 Blood Pressure 109/80 12/03/24 09:28 Pulse Oximetry 99 12/03/24 09:28 Oxygen Delivery Room Air 12/03/24 09:28 Temperature 97.4 F L 12/03/24 09:28 Pulse Rate 78 12/03/24 09:28 Respiratory Rate 16 12/03/24 09:28 Blood Pressure 109/80 12/03/24 09:28 Pulse Oximetry 99 12/03/24 09:28 Oxygen Delivery Room Air 12/03/24 09:28 Reviewed Procedures Ear Wax Removal Left Ear: Ear Wax Removal Date: 12/03/24 Ear Wax Removal Time: 10:10 Cerumenolytic Used: other (Water with a small amount hydrogen peroxide) Results: Re-examined: cerumen removed completely TM Examination: TM(s) intact, normal appearance Ear Canal Exam: atraumatic and other (Erythematous) Patient Tolerated Procedure: well Complications: no problems Technique: ear canal irrigated and ear canal curetted Additional Comments: Patient tolerated procedure well. MDM - URI/Sore Throat MDM Narrative Medical decision making narrative: Successful left ear irrigation and removal of excessive cerumen that appeared to be impacted. The left TM was able to be visualized past the cerumen prior to removal. Once the cerumen was removed the left ear canal appeared erythematous without any discharge. Will treat empirically with ofloxacin ear drops. Right ear canal with excessive cerumen, unable to visualize the right TM. Since the patient was not having symptoms on the right side it is recommended that she use OTC earwax softener agent such as Debrox and allow the earwax to fall out on its own. She said her hearing grossly improved after removal of cerumen of the left ear canal. She likely also has a viral infection. Discussed physical exam findings. Advised supportive measures and signs/symptoms to go to the ER. Pt is appropriate for outpt treatment and f/u. Differential Diagnosis Differential diagnosis: Likely upper respiratory infection, otitis media, pharyngitis and other (Otitis externa) Critical Care Time Critical Care Time Critical Care Time: No Discharge Plan Discharge Clinical Impression: Impacted cerumen of left ear Upper respiratory infection Qualifiers: URI type: unspecified viral URI Qualified Code(s): J06.9 - Acute upper respiratory infection, unspecified Patient Disposition: Home, Self-Care Condition: Stable Instructions: Antibiotic Form, Carbamide Peroxide (Into the ear), Upper Respiratory Infection (ED) Additional Instructions: -Please use antibiotic Ear drops as directed in your left ear for 7-10 days until the pain and swelling are gone. -Please use the Debrox in the right ear as directed to soften the earwax your ear canal. -When administer drug into the affected ear; make sure to lay down with the affected ear facing upward, massage the ear canal to help the drops reach the end of the canal, then remain in that position for at least 5 minutes. -Avoid using cotton tipped applicator for ears cleaning -Avoid exposing swimming or exposing the affected ear to water during the treatment period Take or alternate tylenol or ibuprofen every 4 - 6 hours if needed for pain. -if you continue to have problems with your ears you need to follow-up with ears nose and throat doctor. Viral illness may last between 7-12days; antibiotic is NOT recommended at this time. Recommend antihistamine such as Benadryl at night time and Claritin/Zyrtec/Alia during the day Cough syrup may cause drowsiness; avoid driving or take it at night time. Please use the Flonase as directed for congestion. Also, recommend symptomatic treatment includes: rest, fluids, increase humidity of the air at home. Avoid smoking/second-hand smoke. Limit visits to areas with large crowds. Frequent hand washing or hand database design analyst is one of the best ways to prevent spread of infection. Please schedule a followup visit with your personal physician for further evaluation and treatment within 3-5days. Including recheck and discussion of your blood pressure. If your symptoms persist, change or worsen significantly before you can contact your personal physician then please, without delay, go to the emergency department for further evaluation. Patient Language: Telugu Prescriptions: New ofloxacin 0.3 % drops 10 drp LEFT EAR DAILY 7 Days Qty: 10 0RF fluticasone propionate [Flonase Allergy Relief] 50 mcg/actuation spray,suspension 2 spray intranasal DAILY Qty: 1 0RF Rx Instructions: administer into each nostril Debrox 6.5 % drops 5 drp RIGHT EAR Q12H 4 Days Qty: 15 0RF No Action multivitamin [Daily Multi-Vitamin] Tablet 1 tablet PO DAILY Follow-up/Referrals: Bharti,DARLING Jang [Primary Care Provider] - Vargas Strauss MD [Physician] - Time of Disposition: 10:29
== END 2024-12-03 10:38 | disposition home or self-care (01) ==
PROVIDERS: PCP Physician Assistant
DX: H61.22 Impacted cerumen, left ear (principal); J06.9 Acute upper respiratory infection, unspecified
CPT/HCPCS: 69210; 99213; G0463

== ENCOUNTER 2025-02-24 15:19 | Outpatient (CLI) | payer BC, SELFPAY ==
[2025-02-24 18:23] LABS: Basophils Absolute Auto 0.1 K/mm3 (0.0-0.1); Basophils Percent Auto 0.9 % (0.2-1.2); Eosinophils Absolute Auto 0.5 K/mm3 (0-0.3); Eosinophils Percent Auto 5.9 % (0-4.4); Hematocrit 41.3 % (37.0-47.0); Hemoglobin 13.2 g/dL (12.0-15.0); Immature Granulocyte Absolute 0.02 K/mm3 (0.00-0.031); Immature Granulocyte Percent A 0.2 % (0-0.5); Lymphocytes Percent Auto 31.6 % (18.3-44.2); Mean Corpuscular Hemoglobin 27.7 pg (26-34); Mean Corpuscular Volume 86.8 fl (80-100); Mean Platelet Volume 10.6 fl (7.4-10.4); Monocytes Absolute Auto 0.5 K/mm3 (0.1-0.6); Neutrophils Absolute Auto 4.7 K/mm3 (1.3-6.7); Neutrophils Percent Auto 55.4 % (45.5-73.1); Platelet Count Result 304 k/mm3 (150-375); Red Blood Count 4.76 M/mm3 (4.2-5.4); Red Cell Distribution Width 14.7 % (11.5-14.5); White Blood Count 8.5 K/mm3 (4.5-10.0)
[2025-02-24 18:31] LABS: Alanine Aminotransferase 25 U/L (6-35); Albumin Level 4.3 g/dL (3.5-5.1); Alkaline Phosphatase 72 U/L (38-126); Anion Gap 8 mmol/L (4-12); Aspartate Amino Transferase 51 U/L (14-36); Bilirubin,Total 0.3 mg/dL (0.2-1.3); Blood Urea Nitrogen 10 mg/dL (7-17); Calcium 9.1 mg/dL (8.4-10.2); Carbon Dioxide 25 mmol/L (22-30); Chloride 105 mmol/L (98-107); Estimated Glomerular Filt Rate > 60; Glucose 117 mg/dL (65-110); Potassium 4.1 mmol/L (3.4-5.0); Sodium 138 mmol/L (137-145); Total Protein 7.5 g/dL (6.3-8.2)
[2025-02-24 18:46] LABS: Add Urine Microscopic? NO; Appearance Urine Clear (Clear); Bilirubin Urine Negative (Negative); Blood Urine Negative (Negative); Color Urine Yellow (Yellow); Glucose Urine UA Negative (Negative); Ketones Urine Negative (Negative); Leukocyte Esterase Ur Negative LEU/UL (Negative); Nitrate Urine Negative (Negative); Protein Urine Negative (Negative); Specific Grav Ur 1.009 (1.001-1.035); Urobilinogen Urine 0.2 mg/dL (<2.0); pH Urine 6.5 (5.0-9.0)
== END 2025-02-24 15:20 | disposition home or self-care (01) ==
LOC: ANHGOSHLAB 15:20
PROVIDERS: PCP Physician Assistant; Visit Provider Obstetrics & Gynecology
DX: N93.9 Abnormal uterine and vaginal bleeding, unspecified (principal); R10.2 Pelvic and perineal pain
CPT/HCPCS: 36415; 80053; 81003; 85025

== ENCOUNTER 2025-02-24 15:31 | Outpatient (CLI) | payer BC, SELFPAY ==
--- NOTE | ~2025-02-24 | US_ITS ---
US pelvic complete w TV Ordering provider: Delicia Mcdonald MD History: . R10.2 - Pelvic and perineal pain . Comparison: None. Technique: Transabdominal and endovaginal ultrasound of the pelvis (Doppler ultrasound interrogation techniques used as needed for this exam.) FINDINGS: UTERUS: Status post hysterectomy. CUL DE SAC: No free fluid. RIGHT OVARY: Normal in size measuring 2.4x 1.7x 1.8 cm. Normal echotexture. Doppler vascular flow pre sent. LEFT OVARY: Normal in size measuring 2.4x 1.7x 1 cm. Normal echotexture. Doppler vascular flow presen t. ADNEXA: Normal. No mass. IMPRESSION: Status post hysterectomy. Otherwise, normal pelvic ultrasound. Reviewed, dictated and finalized at location A.
== END 2025-02-24 15:32 | disposition home or self-care (01) ==
LOC: GOSHIMG 15:32
PROVIDERS: PCP Physician Assistant; Visit Provider Obstetrics & Gynecology
DX: R10.2 Pelvic and perineal pain (principal); N93.9 Abnormal uterine and vaginal bleeding, unspecified; Z90.710 Acquired absence of both cervix and uterus
CPT/HCPCS: 76830; 76856

== ENCOUNTER 2025-03-02 15:39 | Emergency (ER) | payer BC, SELFPAY ==
[2025-03-02 15:51] VITALS: BP 128/81; PULSE 87; RESP 16; TEMP 36.6; O2SAT 99
--- NOTE | 2025-03-02 16:09 | ED_ITS ---
HPI - Extremity Problem General Chief complaint: Extremity Problem,Nontraumatic Stated complaint: Left Forearm Pain Time Seen by Provider: 03/02/25 16:00 Source: patient Mode of arrival: ambulatory Limitations: no limitations History of Present Illness HPI Narrative: Lorraine is a 49 year old female patient presenting to the clinic today with c/o left forearm pain after a blood draw 6 days ago. She reports she is having some pain-stinging to the anetecubital with numbness and tingling in her fingers. No obvious swelling, redness, or erythema. Patient has applied ice to the area as well as taken Tylenol. Related Data Home Medications ?Medication ?Instructions ?Recorded ?Confirmed ?Last Taken ?Type multivitamin (Daily Multi-Vitamin 1 tablet PO DAILY 09/13/24 02/24/25 09/16/24 History tablet) cetirizine 10 mg capsule (Zyrtec) 10 mg PO DAILY PRN allergy symptoms 02/24/25 03/02/25 Unknown History Allergies Allergy/AdvReac Type Severity Reaction Status Date / Time No Known Allergies Allergy Verified 03/02/25 15:50 Review of Systems Review of Systems: Pertinent positives per HPI. Patient denies any fever, chills, rash, headache, visual changes, dizziness, cough, runny nose, sore throat, shortness of breath, chest pain, palpitations, nausea, vomiting, diarrhea, constipation, abdominal pain, or any urinary issues. [facility] Past Medical History Medical History Fibroids Iron deficiency Surgical History Surgical History S/P laparoscopic hysterectomy Robotic assisted total laparoscopic hysterectomy, bilateral salpingectomy, and cystoscopy 09/20/2024 History of myomectomy History of hysteroscopy Hx of appendectomy History of tubal ligation Family History Family History Other Arthritis Diabetes mellitus Lupus Social History Social History Smoking status: Never smoker Alcohol intake: never Substance use: never Substance use type: does not use Do You Feel Safe in your Home?: Yes Lack of Transportation: No Lack of Food: Never True Current Housing: I Have Housing Concerned About Future Housing: No Difficulty Paying Gas/Electric Bills: No Difficulty Paying for Meds: No Currently Unemployed: No Education: Grade School Difficulty w/ Childcare or Family Care: No Living arrangements: with family Occupation/Education: occupation 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 There is no relevant family history pertinent to the patient complaint. Exam Narrative: General: Well-developed, well nourished, in no apparent distress Head: Normocephalic, atraumatic. Cardio: Regular rate and rhythm, s1 and s2 normal, no murmur appreciated. Resp: Clear to auscultation bilaterally, no rhonchi, rales, wheezing or rubs. Musculoskeletal: No deformity, no swelling, redness, or erythema, tender to palpation without abscess or palpable mass over the antecubital and forearm, with intermittent numbness and tingling in her fingers, grossly normal range of motion, muscle strength strong and equal, right wrist peripheral pulse strong, no edema, no cyanosis, normal gait and station Course Course Emergency Course: Portions of this record may have been created with voice recognition software. Level of Care: Express Care Visit Vital Signs Vital signs: Vital Signs Temperature 36.6 C 03/02/25 15:51 Pulse Rate 87 03/02/25 15:51 Respiratory Rate 16 03/02/25 15:51 Blood Pressure 128/81 03/02/25 15:51 Pulse Oximetry 99 03/02/25 15:51 Oxygen Delivery BiPAP 03/02/25 15:51 Temperature 36.6 C 03/02/25 15:51 Pulse Rate 87 03/02/25 15:51 Respiratory Rate 16 03/02/25 15:51 Blood Pressure 128/81 03/02/25 15:51 Pulse Oximetry 99 03/02/25 15:51 Oxygen Delivery BiPAP 03/02/25 15:51 Vital signs reviewed MDM - Extremity (Nontraumatic) MDM Narrative Medical decision making narrative: At the time of visit patient is resting comfortably on the exam table. Patient appears to be nontoxic. Plan: I suspect patient has acute neuropathic pain to her right forearm. Recommend taking 600 mg of ibuprofen 3 times daily and applying ice. No obvious sign DVT or phlebitis. Supportive measures were discussed with the patient and they voiced understanding discharge instructions and agrees to treatment plan. Return precautions reviewed Differential Diagnosis Differential diagnosis: Likely cellulitis, superficial thrombophlebitis, deep venous thrombosis of upper extremity and other (Neuropathic pain/paresthesia) Discharge Plan Discharge Clinical Impression: Neuropathic pain of forearm Patient Disposition: Home Condition: Stable Instructions: Antibiotic Form, Paresthesia (ED), Arm Pain (ED) Additional Instructions: Rest, ice, and elevate-apply ice to the area for 20 minutes at a time. 20 minutes on/20 minutes off Recommend taking 600 mg of Ibuprofen 3 times daily-may take 1 g of Tylenol 3 times daily additionally as needed for pain Follow up with your PCP if symptoms persist more than 1 week. [place], aplique hielo y eleve la leon afectada: aplique hielo en la leon afectada elvia 20 minutos cada vez. 20 minutos s?/20 minutos no. Se recomienda ricky 600 mg de ibuprofeno 3 veces al d?a. Puede ricky 1 g de Tylenol 3 veces al d?a adicionalmente, seg?n sea necesario para el dolor. Consulte con ponce m?dico de cabecera si los s?ntomas persisten m?s de hina semana. Patient Language: [place] Prescriptions: New ibuprofen 600 mg tablet 600 mg PO TID 10 Days Qty: 30 0RF No Action Zyrtec 10 mg capsule 10 mg PO DAILY PRN (Reason: allergy symptoms) estradiol 0.01 % (0.1 mg/gram) cream 1 g vaginal .COMPLEX Qty: 42.5 2RF Rx Instructions: Place 1g vaginally every other day for the first two weeks. After that, continue using 1g twice weekly multivitamin [Daily Multi-Vitamin] Tablet 1 tablet PO DAILY Follow-up/Referrals: Bharti,DARLING Jang [Primary Care Provider] - Time of Disposition: 16:12 Quality NIHSS Nursing Documentation ED NIHSS nursing documentation: reviewed/agree
== END 2025-03-02 16:18 | disposition home or self-care (01) ==
PROVIDERS: Emergency Provider Nurse Practitioner Family; PCP Physician Assistant
DX: M79.2 Neuralgia and neuritis, unspecified (principal)
CPT/HCPCS: 99213; G0463

== ENCOUNTER 2025-03-16 09:00 | Outpatient (RCR) | payer BC, SELFPAY ==
--- NOTE | 2025-02-08 16:34 | OPREHPOC ---
Outpatient Therapy Plan of Care This is a Multidisciplinary Plan of Care that may contain components documented by all disciplines (PT, OT, and ST.) PT Problem 1 PT Problem #1 Knowledge Deficit PT Goal 1 Goal / Goal Update 1. Patient will perform independent HEP 2. Patient will verbalize urge suppression strategies Target Visit 2 PT Problem 2 PT Problem #2 Pain PT Goal 1 Goal / Goal Update 1. No pain with pelvic exam to allow for full medical management as needed 2. Pain 1/10 highest with typical activities Target Visit 5 PT Problem 3 PT Problem #3 Impaired Functional ADLs PT Goal 1 Goal / Goal Update 1. Patient will void no more than 8 times in a 24 hour period 2. Patient will be able to hold urge to void at least 30 minutes 3. Patient will report no difficulty initiating urine stream 4. Patient will report no urinary incontinence for at least 2 weeks Target Visit 5
--- NOTE | 2025-02-08 16:34 | PTOPEVAL1 ---
Assessment and note entered by Yue Steiner DPT Evaluation Information Assessment Status Evaluation Diagnosis z90.710 ICD-10 Condition Codes (PT) Weakness R53.1,Pelvic and perineal pain R10.2, Stress incontinence N39.3 Subjective Information Pt had a hysterectomy and sometimes feels pain and pressure. Partial hysterectomy was September 20, 2024. Highest pain 4/10 and lowest 0/10. Pain is very low abdomen and into R hip. Voids 8 times a day and 2-3 times at night. Can only hold urge up to 10 minutes but then when sitting on the toilet feels like it is difficult to initiate. Stress incontinence one time a week, small volume and does not have to wear pads. Sometimes gets pain with urination if she does not drink enough water. BM 2 times a day recently. Denies pelvic pain other than the pressure. Pt has been 3 times and 3 vaginal deliveries. 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 Patient goal: get rid of the pain and pressure Returns to MD in 1 year. Reported Pain Level Pain Score 2: Self Report Assessment PT Clinical Summary The patient is presenting to skilled therapy s/p partial hysterectomy in September 2024 with low abdominal, pelvic, and R hip pain. She also reports increased urinary frequency, occasional stress incontinence, urgency, and difficulty initiating urine stream. She demonstrates increased pelvic floor muscle tone and pain with palpation, as well as decreased hip and abdominal strength, which are contributing to her pain and urinary symptoms. She will highly benefit from therapy to reduce pain and improve urinary symptoms in order to restore full function. Plan of Care Interventions Electrical Stimulation,Gait Training,Hot Pack/Cold Pack,Manual Therapy,Neuro Re-education,Patient/ Caregiver Education,Therapeutic Activities, Therapeutic Exercise PT Services Indicated Yes Treatment Frequency and 1 time a week for 5 visits Duration These treatments will address the objective and functional deficits as defined above. The patient will be advanced safely and appropriately in order for the patient to progress towards his/her prior level of function. Additional exercises will be introduced and as well as a comprehensive home exercise program upon discharge, if needed, ?to ensure carryover of functional gains achieved in the clinic. This treatment plan has been reviewed and agreement upon by the patient.
--- NOTE | 2025-03-16 09:45 | OPREHPOC ---
Outpatient Therapy Plan of Care This is a Multidisciplinary Plan of Care that may contain components documented by all disciplines (PT, OT, and ST.) PT Problem 1 PT Problem #1 Knowledge Deficit PT Goal 1 Goal / Goal Update 1. Patient will perform independent HEP 2. Patient will verbalize urge suppression strategies Target Visit 2 Progress Met PT Problem 2 PT Problem #2 Pain PT Goal 1 Goal / Goal Update 1. No pain with pelvic exam to allow for full medical management as needed 2. Pain 1/10 highest with typical activities Target Visit 9 Progress Not Met PT Problem 3 PT Problem #3 Impaired Functional ADLs PT Goal 1 Goal / Goal Update 1. Patient will void no more than 8 times in a 24 hour period 2. Patient will be able to hold urge to void at least 30 minutes 3. Patient will report no difficulty initiating urine stream 4. Patient will report no urinary incontinence for at least 2 weeks update 03/16/25 1. not met 2. improved to 15 minutes 3. met 4. not met Target Visit 9 Progress Partially Met
--- NOTE | 2025-03-16 09:45 | PTOPPROG ---
Assessment and note entered by Yue Steiner DPT Evaluation Information Assessment Status Progress Diagnosis z90.710 ICD-10 Condition Codes (PT) Weakness R53.1,Pelvic and perineal pain R10.2, Stress incontinence N39.3 Subjective Information Pt reports some improvements with therapy and no longer noticing difficulty initiating urination. Highest pain 8/10 and lowest 4/10. States pain is in her posterior right thigh and back. Can hold urge to void up to 15 minutes. Stress incontinence still 1 time a week. Assessment PT Clinical Summary The patient reports some improvements with therapy and no longer has difficulty initiating urine stream. She reports no tenderness with abdominal palpation, demonstrates improved hip strength, and is able to relax fully after pelvic floor contraction. She does however report overall increased pain and changing pain location to more posterior right thigh and back. Due to this, the patient has been educated to schedule a follow up visit with her referring provider and will continue physical therapy after to further address pain and to allow for return to function. Plan of Care Interventions Electrical Stimulation,Gait Training,Hot Pack/Cold Pack,Manual Therapy,Neuro Re-education,Patient/ Caregiver Education,Therapeutic Activities, Therapeutic Exercise PT Services Indicated Yes Treatment Frequency and 1 time a week for 4 visits after follow up with Duration referring provider These treatments will address the objective and functional deficits as defined above. The patient will be advanced safely and appropriately in order for the patient to progress towards his/her prior level of function. Additional exercises will be introduced and as well as a comprehensive home exercise program upon discharge, if needed, ?to ensure carryover of functional gains achieved in the clinic. This treatment plan has been reviewed and agreement upon by the patient.
== END 2025-05-09 23:59 | disposition home or self-care (01) ==
LOC: ANHPT 09:00
PROVIDERS: PCP Physician Assistant; Visit Provider Physician Assistant
DX: Z90.710 Acquired absence of both cervix and uterus (principal); R53.1 Weakness; R10.2 Pelvic and perineal pain; N39.3 Stress incontinence (female) (male)
CPT/HCPCS: 97110; 97140; 97161; 97530

== ENCOUNTER 2025-07-08 15:26 | Emergency (ER) | payer BC, SELFPAY ==
[2025-07-08 15:35] VITALS: BP 119/78; PULSE 66; RESP 18; TEMP 36.9; O2SAT 99
--- NOTE | 2025-07-08 15:53 | ED.URI ---
HPI - URI/Sore Throat General Chief Complaint: Upper Respiratory Infection Stated Complaint: Cough/Back Pain Time Seen by Provider: 07/08/25 15:40 Source: patient and RN notes reviewed Mode of arrival: ambulatory Limitations: no limitations History of Present Illness HPI Narrative: 49-year-old female presents to the [facility] complaining of cough, chest congestion started to 3 days ago. Patient also reports having pain with coughing and back pain with coughing. Patient denies any upper respiratory symptoms, fevers, body aches, and chills, nausea vomiting, diarrhea, chest pain difficulty breathing, or other symptoms. Patient has been using her Zyrtec to help with symptoms the relief. Patient reports the cough is dry nonproductive is worse at night. Related Data Home Medications ?Medication ?Instructions ?Recorded ?Confirmed ?Last Taken ?Type multivitamin (Daily Multi-Vitamin 1 tablet PO DAILY 09/13/24 05/12/25 09/16/24 History tablet) cetirizine 10 mg capsule (Zyrtec) 10 mg PO DAILY PRN allergy symptoms 02/24/25 05/12/25 Unknown History Allergies Allergy/AdvReac Type Severity Reaction Status Date / Time No Known Allergies Allergy Verified 07/08/25 15:34 Review of Systems Review of Systems: CONSTITUTIONAL: Denies fever, chills, or sweats. EYES: Denies visual changes, redness, or discharge. ENT: Denies rhinorrhea, congestion, sore throat, or otalgia. CARDIOVASCULAR: Denies chest pain, palpitations, dizziness, lightheadedness, or edema. RESPIRATORY: He positive for cough. Negative for wheezing or Dyspnea. GASTROINTESTINAL: Denies abdominal pain, nausea, vomiting, or diarrhea. GENITOURINARY: Denies dysuria or hematuria. SKIN: Denies rash or itching. MUSCULOSKELETAL: Denies back pain, joint pain, or myalgia. NEUROLOGIC: Denies headache, numbness, or weakness. PSYCHIATRIC: Denies anxiety or depression. All other systems reviewed are negative, except as documented in HPI. [facility] Past Medical History Medical History Fibroids Iron deficiency Surgical History Surgical History S/P laparoscopic hysterectomy Robotic assisted total laparoscopic hysterectomy, bilateral salpingectomy, and cystoscopy 09/20/2024 History of myomectomy History of hysteroscopy Hx of appendectomy History of tubal ligation Family History Family History Other Arthritis Diabetes mellitus Lupus Social History Social History Alcohol intake: never Substance use: never Substance use type: does not use Do You Feel Safe in your Home?: Yes Lack of Transportation: No Lack of Food: Never True Current Housing: I Have Housing Concerned About Future Housing: No Difficulty Paying Gas/Electric Bills: No Difficulty Paying for Meds: No Currently Unemployed: No Education: Grade School Difficulty w/ Childcare or Family Care: No Living arrangements: with family Occupation/Education: occupation 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 There is no relevant family history pertinent to the patient complaint. Exam Narrative: GENERAL: This is a well-nourished, well-developed adult, in no apparent distress. They are non ill-appearing, nontoxic appearing. HEAD: normocephalic, atraumatic. EYES: Sclera clear/white. Conjunctiva normal. Vision is grossly intact. Extraocular movements intact EARS: External ears normal, auditory canals clear and without drainage, TMs normal without perforation. Hearing grossly intact. NOSE: External nose normal with no obvious nasal discharge, nasal turbinates without redness, no rhinorrhea. THROAT: Mucous membranes moist, posterior pharynx clear, without erythema or swelling. Uvula midline. Cobblestone appearing. NECK: Neck supple, non-tender without lymphadenopathy, masses or thyromegaly. CARDIOVASCULAR: Regular rate and rhythm without murmurs, gallops, or rubs. RESPIRATORY: Clear to auscultation. Breath sounds equal bilaterally. No wheezes, rales, or rhonchi. SKIN: warm, Dry, intact with no suspicious lesions or rash, good texture and turgor. NEURO: awake, alert, and oriented to person, place and time. There were no obvious focal neurologic abnormalities. EXTREMITIES: No joint tenderness, effusion, or edema noted. BACK: Nontender without deformity. Course Course Emergency Course: Portions of this record may have been created with voice recognition software Level of Care: Express Care Visit Vital Signs Vital signs: Vital Signs Temperature 98.4 F 07/08/25 15:35 Pulse Rate 66 07/08/25 15:35 Respiratory Rate 18 07/08/25 15:35 Blood Pressure 119/78 07/08/25 15:35 Pulse Oximetry 99 07/08/25 15:35 Oxygen Delivery Room Air 07/08/25 15:35 Temperature 98.4 F 07/08/25 15:35 Pulse Rate 66 07/08/25 15:35 Respiratory Rate 18 07/08/25 15:35 Blood Pressure 119/78 07/08/25 15:35 Pulse Oximetry 99 07/08/25 15:35 Oxygen Delivery Room Air 07/08/25 15:35 Reviewed MDM - URI/Sore Throat MDM Narrative Medical decision making narrative: Patient likely has a viral bronchitis. Will treat with Medrol Dosepak and benzonatate tablets. Discussed physical exam findings. Advised supportive measures and signs/symptoms to go to the ER. Pt is appropriate for outpt treatment and f/u. Differential Diagnosis Differential diagnosis: Likely upper respiratory infection, sinusitis, viral infection, bronchitis and other (Asthma, cough) Critical Care Time Critical Care Time Critical Care Time: No Discharge Plan Discharge Clinical Impression: Bronchitis Patient Disposition: Home Condition: Stable Instructions: Acute Bronchitis (ED) Additional Instructions: Take Medrol Dosepak as directed. Use benzonatate tablets as needed for cough. Recommend Flonase spray for congestion. Sprays each nostril daily. Tylenol or Motrin as needed for pain or fevers. Follow instructions on the bottle. Symptomatic treatment includes: rest, fluids, and increase humidity of the air at home. Follow up with your primary care provider 3 5 days. Go to the ER for worsening symptoms, chest pain, difficulty breathing, nausea vomiting, fevers, or any serious concerns. Patient Language: Niuean Prescriptions: New benzonatate 200 mg capsule 200 mg PO BID PRN (Reason: cough) Qty: 20 0RF methylprednisolone 4 mg tablets,dose pack See Rx Instructions .ROUTE .COMPLEX Qty: 21 0RF Rx Instructions: for 6 days No Action Zyrtec 10 mg capsule 10 mg PO DAILY PRN (Reason: allergy symptoms) estradiol 0.01 % (0.1 mg/gram) cream 1 g vaginal 3XW Qty: 42.5 2RF multivitamin [Daily Multi-Vitamin] Tablet 1 tablet PO DAILY Follow-up/Referrals: Bharti,DARLING Jang [Primary Care Provider, [facility]] Time of Disposition: 15:49
== END 2025-07-08 15:56 | disposition home or self-care (01) ==
PROVIDERS: PCP Physician Assistant
DX: J40 Bronchitis, not specified as acute or chronic (principal)
CPT/HCPCS: 99213; G0463

== ENCOUNTER 2025-07-16 15:44 | Emergency (ER) | payer BC, SELFPAY ==
[2025-07-16 15:51] VITALS: BP 120/50; PULSE 70; RESP 16; TEMP 37.1; O2SAT 100
--- NOTE | 2025-07-16 15:54 | ED.URI ---
HPI - URI/Sore Throat General Chief Complaint: Upper Respiratory Infection Stated Complaint: chest congestion patient presents the [facility] with complaints of increasing fatigue and weakness that began about 2 weeks ago. Patient does report feeling slightly better with his nasal congestion and cough but reports her chest is still tight and still having significant cough. Reports taking the medications that she was prescribed here as well as Mucinex. Denies fever, chills, body aches, dizziness, sore throat Related Data Home Medications ?Medication ?Instructions ?Recorded ?Confirmed ?Last Taken ?Type multivitamin (Daily Multi-Vitamin 1 tablet PO DAILY 09/13/24 07/16/25 09/16/24 History tablet) cetirizine 10 mg capsule (Zyrtec) 10 mg PO DAILY PRN allergy symptoms 02/24/25 07/16/25 Unknown History Allergies Allergy/AdvReac Type Severity Reaction Status Date / Time No Known Allergies Allergy Verified 07/08/25 15:34 Review of Systems Constitutional: Constitutional: Reports as per HPI, Denies chills, Reports fatigue, Denies fever(s) and Reports weakness Eyes: Eyes: Reports no additional eye complaints ENT: Reports as per HPI, Denies vertigo, Denies dizziness, Reports nasal congestion and Denies sore throat Comments: sinus pain Cardiovascular: Cardiovascular: Reports no additional cardiovascular complaints Respiratory: Respiratory: Reports as per HPI, Reports chest congestion, Reports cough, Denies dyspnea and Denies wheezing Gastrointestinal: Gastrointestinal: Reports no additional gastrointestinal complaints Genitourinary: Genitourinary: Reports no additional female genitourinary complaints Musculoskeletal: Musculoskeletal: Reports as per HPI, Denies back pain and Denies myalgias Integumentary/Breasts: Skin/Breast: Reports as per HPI, Denies erythema and Denies rash Neurologic: Reports as per HPI, Denies vertigo, Denies dizziness, Reports headache(s) and Denies weakness Psychiatric: Psychiatric: Reports no additional psychiatric complaints Endocrine: Endocrine: Reports no additional endocrine complaints Hematologic/Lymphatic: Hematologic/Lymphatic: Reports no additional hematologic/lymphatic complaints Allergic/Immunologic: Allergic/Immunologic: Reports no additional allergic/immunologic complaints [facility] Past Medical History Medical History Fibroids Iron deficiency Surgical History Surgical History S/P laparoscopic hysterectomy Robotic assisted total laparoscopic hysterectomy, bilateral salpingectomy, and cystoscopy 09/20/2024 History of myomectomy History of hysteroscopy Hx of appendectomy History of tubal ligation Family History Family History Other Arthritis Diabetes mellitus Lupus Social History Social History Smoking status: Never smoker Alcohol intake: never Substance use: never Substance use type: does not use Do You Feel Safe in your Home?: Yes Lack of Transportation: No Lack of Food: Never True Current Housing: I Have Housing Concerned About Future Housing: No Difficulty Paying Gas/Electric Bills: No Difficulty Paying for Meds: No Currently Unemployed: No Education: Grade School Difficulty w/ Childcare or Family Care: No Living arrangements: with family Occupation/Education: occupation 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 Gender identity (if verbalized by the patient): Female Sexual Orientation (if Verbalized by the Patient): Straight or Heterosexual Spiritual care concerns: Yes (No blood) Course Course Level of Care: Express Care Visit Vital Signs Vital signs: Vital Signs Temperature 98.7 F 07/16/25 15:51 Pulse Rate 70 07/16/25 15:51 Respiratory Rate 16 07/16/25 15:51 Blood Pressure 120/50 L 07/16/25 15:51 Pulse Oximetry 100 07/16/25 15:51 Oxygen Delivery Room Air 07/16/25 15:51 Temperature 98.7 F 07/16/25 15:51 Pulse Rate 70 07/16/25 15:51 Respiratory Rate 16 07/16/25 15:51 Blood Pressure 120/50 L 07/16/25 15:51 Pulse Oximetry 100 07/16/25 15:51 Oxygen Delivery Room Air 07/16/25 15:51 MDM - URI/Sore Throat MDM Narrative Medical decision making narrative: The patient was evaluated by myself in the express care. History is obtained from patient who is an independent historian and physical exam was performed. Available medical records were reviewed at this time. Exam findings show no acute concerns or changes; patient is non-toxic appearing and is in no distress. Patient is appropriate for outpatient treatment and follow-up. I have evaluated and discussed social determinants of health with the patient that could potentially impact subsequent diagnosis and treatment plans. Differential diagnosis and treatment plan were discussed with the patient. Patient agrees with discussion and after shared medical decision making agrees with plan of care. All questions were answered to the patient's satisfaction. Differential Diagnosis Differential diagnosis: Likely upper respiratory infection, croup, otitis media, sinusitis, viral infection, bronchitis, influenza and pharyngitis Medical Records Attestation: I reviewed the patient's medical records. Discharge Plan Discharge Clinical Impression: Sinusitis, Bronchitis Patient Disposition: Home Condition: Stable Instructions: Antibiotic Form, Sinusitis (ED), Acute Bronchitis (ED) Additional Instructions: Take the antibiotics as directed for the entire course. Do not miss any doses. What you are taking antibiotics and is recommended to take a probiotic or have yogurt daily to return the good gut bacteria to your system. This can also help with acute diarrhea while taking antibiotics. It can take 24-48 hours for the antibiotics to start to relieve your symptoms continue to take these medications to help with various symptoms: Tylenol or Motrin for pain, headache, or fever Flonase/fluticasone or Nasacort/triamcinolone nasal spray- helps with congestion and nasal drainage. Sudafed/pseudoephedrine helps with sinus pain and congestion. Caution with high blood pressure. Use a humidifier or vaporizer at night. Drink plenty of water. 8-10 glasses per day. Mucinex/guaifenesinas directed and be sure to take with 8oz of water. Warm compresses over the forehead and cheeks to promote sinus drainage. Return to urgent care or go to the ER for new or worsening symptoms. Follow up with Primary provider if not improved after 1 week. Patient Language: Upper Sorbian Prescriptions: New doxycycline monohydrate 100 mg capsule 100 mg PO BID Qty: 20 0RF albuterol sulfate [Ventolin HFA] 90 mcg/actuation HFA aerosol inhaler 2 puff inhalation QID PRN (Reason: shortness of breath or wheezing) Qty: 8.5 0RF No Action benzonatate 200 mg capsule 200 mg PO BID PRN (Reason: cough) Qty: 20 0RF Zyrtec 10 mg capsule 10 mg PO DAILY PRN (Reason: allergy symptoms) estradiol 0.01 % (0.1 mg/gram) cream 1 g vaginal 3XW Qty: 42.5 2RF multivitamin [Daily Multi-Vitamin] Tablet 1 tablet PO DAILY Follow-up/Referrals: Freddy,Silva [Other] Time of Disposition: 16:09
== END 2025-07-16 16:12 | disposition home or self-care (01) ==
PROVIDERS: Emergency Provider Nurse Practitioner Family
DX: J32.9 Chronic sinusitis, unspecified (principal); J40 Bronchitis, not specified as acute or chronic
CPT/HCPCS: 99213; G0463

== ENCOUNTER 2025-07-26 16:11 | Outpatient (CLI) | payer BC, SELFPAY ==
--- NOTE | ~2025-07-26 | XR_ITS ---
EXAMINATION: XR chest 2V, 07/26/2025 16:22 ANY [employer] HISTORY: acute bronchitis, COUGH, SOB, FEVER X 3 WKS COMPARISON: No comparisons available. Technique: 2 views obtained. Findings: The lungs are clear, no effusion. No pneumothorax. Heart is normal size. Mediastinal and hilar contours are within normal limits. Bony thorax no acute abnormality. Impression: No acute cardiopulmonary abnormality. Reviewed, dictated and finalized at location P. [employer] Impression: No acute cardiopulmonary abnormality.
--- OUTSIDE RECORDS SUMMARY | 2025-07-26 17:25 | XMS_ITS | Continuity of Care Document ---
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 Name Role Phone DALE GOMEZ Primary Care Provider Assessment Encounter Date Assessment Date Assessment LastModified by Organization Details LastModified Time 07/26/2025 07/26/2025 mammogram 11/30/24 cologuard 04/03/25 acroessmanmarsha Not available 07/26/2025 11:17:19 Plan of Treatment Reminders Order Date Submit Date Provider Last Modified By Organization Details Last Modified Time Details Appointments ANY 30 2024 08:00A Meggan Fletcher NP Not available Not available Not available Lab lipid panel, serum 2024 ADALGISA G[facility], [facility], [facility] [address], [place], [address], 07/26/2025 09:32:20 TSH + free T4, serum 2024 025 ADALGISA GRAY, Tara jesus alberto Smuner, [facility] [address], [place], [address], 07/26/2025 09:32:22 HbA1c (hemoglob in A1c), blood 2024 025 ADALGISA GRAY, [facility] [address], [address], [place], [address], 07/26/2025 09:33:39 CMP, serum or plasma 2024 025 ADALGISA GRAY, [address] [facility], [address], [place], [address], 07/26/2025 09:32:21 CBC w/ auto diff 2024 ADALGISA ACEVEDORP, [address] [place], [place] [address]edgar [address], [address], [place], [address], 07/26/2025 09:32:23 albumin/c reatinine , mass ratio, urine 2024 ADALGISA ACEVEDORP, [address] [place], [place] [address]edgar [address], [address], [place], [address], 07/26/2025 09:32:20 ferritin, serum or plasma 2024 ADALGISA CURTIS, [address] [place], [place] [address]edgar [place], [address], [place], [address], 07/26/2025 09:32:21 iron, serum 2024 [facility], [address] [place] [address] [place], [address], [place], [address], 07/26/2025 09:32:22 TIBC (total iron-bind ing capacity) , serum 2024 ADALGISA CURTIS, [address] [place] [address], [address], [place], [address], 07/26/2025 09:32:23 Referral None recorded. Procedures None recorded. Surgeries None recorded. Imaging XR, chest, 2 view - cough, shortness of breath [address] [facility], [address], [place], [address], 07/26/2025 09:43:46 Medication Orders cetirizin e 10 mg tablet 2024 ADALGISA [id number], [address], [place], [place], [id number], 07/26/2025 09:32:24 Patient TargetsNo targets recorded. Patient Instructions Encounter Date Encounter Id Patient Instructions Last Modified By Organization Details Last Modified Time 07/26/2025 [id number] A healthy lifestyle: care instructions lazaro Not available 07/26/2025 11:20:31 The patient was counseled regarding the appropriate use of alcohol, screening procedures and recommended schedule for colonoscopy, cholesterol, thyroid and diabetes screening, prevention of dental and periodontal disease, diet, regular sustained exercise for at least 30 minutes 3-4 times per week, regular use of seat belts. Recommend dilated eye exam and glaucoma screening every 2 years or as indicated by ophthalmology lazaro Not available 07/26/2025 11:17:52 Treatment: - Continued Mucinex 600 mg, two tablets in the morning and two tablets at night. - Prescribed cetirizine, once a day, to manage allergy symptoms. - can continue to take antibiotic and steroid from urgent care until completed Tests: - Ordered a chest X-ray to rule out infectious process - Planned to draw lab work. Patient Education: - Encouraged the patient to continue drinking lots of water to thin secretions. - Advised against using cough suppressants to allow productive coughing. - Recommended hot showers to help open airways. Follow-Up: - Scheduled a routine follow-up in six months. - Informed the patient that they would be contacted after the chest X-ray results are available. Disposition: - Awaiting chest X-ray results to determine further treatment. lazaro Not available 07/26/2025 11:15:51 Reason for Referral None Reported. Problems Name Problem SNOMED Code Status Onset Date Resolution Date Notes Provider Name and Address Organization Details Recorded Time Anemia 296180906 Active 2018 DIMAS Cooper, [place] - [facility] 9 10:41:09 Uterine leiomyoma 85692127 Active 2020 DARLING NEWBERRY Attn: Geeta brown,[address], [place], [address] , [facility] - [facility] 1 11:44:50 Prediabetes 624951719 Active 2021 DARLING NEWBERRY Attn: Accountin g,[address], [place], [address], [place] - [facility] 5 11:40:33 Fatigue 89721445 Active 2021 DARLING NEWBERRY Attn: Accountin g,[address], [place], [address], [place] [facility] 2 16:25:08 Thoracic back pain 578733652 Active 2021 DARLING NEWBERRY Attn: Accountin g,[address] [facility], [place], [address], [place] [facility] 2 09:47:24 Low back pain 588943171 Active 2021 DARLING NEWBERRY Attn: Accountin g,[address] [facility], [place], [address], [place] [facility] 2 09:47:25 History of surgery 600510442 Active 2021 DARLING NEWBERRY Attn: Accountin g,[address] [facility], [place], [address], [place] [facility] 2 09:19:08 Iron deficiency anemia 94697864 Active 2022 DARLING NEWBERRY Attn: Accountin g,[address] [facility], [place], [address], [place] [facility] 3 11:01:29 Varicose veins of lower extremity 00320888 Active 2022 DARLING NEWBERRY Attn: Accountin g,[address] [facility], [place], [address], [place] [facility] 3 11:03:20 Pain in pelvis 26665298 Active 2023 DARLING NEWBERRY Attn: Accountin g,[address] [facility], [place], [address], [place] [facility] 4 09:16:53 Overweight 336084717 Active 2023 DARLING NEWBERRY Attn: Geeta brown,[address] [facility], [place], [address], [facility] - SI 4 09:16:57 Varicose veins of lower extremity 57851138 Active 2024 DARLING NEWBERRY Attn: Geeta brown,[address] [facility], [place], [address], [facility] - [facility] 5 09:23:37 History of hysterectomy 161308137 Active 2024 DARLING NEWBERRY Attn: Geeta brown,[address] [facility], [place], [address], [facility] - SI 5 09:24:04 Blood in urine 58155704 Active 2024 DARLING NEWBERRY Attn: Geeta brown,[address] [facility], [place], [address], [facility] - [facility] 5 11:40:35 Problem Notes None recorded. Procedures Surgical History Date Name Laterality Status Provider Name and Address Organization Details Recorded Time 09/20/19 total abdominal hysterectomy completed Silva Peña [place] - [place] 01/11/2025 08:41:15 Appendectomy completed Keke Jackson MA [facility] 07/12/2019 10:43:41 Imaging Results None recorded. Procedure Notes None recorded. Medical Equipment None [...] tablet TAKE 1 TABLET BY MOUTH DAILY 07/26 completed Not Available Not Available Not Available doxycycline hyclate 100 mg capsule active Not Available Not Available N ot Available atorvastati n 20 mg tablet Take 1 tablet every day by oral route at bedtime. 07/26 completed Not Available Not Available Not Available cetirizine 10 mg tablet Take 1 tablet every day by oral route as needed. 2024 active Not Available Not Available Not Avai lable azithromyci n 250 mg tablet TAKE 2 TABLETS BY MOUTH ON DAY 1, AND THEN TAKE 1 TABLET BY MOUTH ONCE A DAY ON DAY 2 THROUGH DAY 5 04/19 completed Not Available Not Available Not Available ibuprofen 800 mg tablet TAKE 1 TABLET BY MOUTH THREE TIMES DAILY 07/26 completed Not Available Not Available Not Available benzonatate 200 mg capsule TAKE 1 CAPSULE BY MOUTH TWICE DAILY NEEDED FOR COUGH active Not Available Not Available No t Available prednisone 20 mg tablet TAKE 2 TABLETS BY MOUTH DAILY FOR 5 DAYS 08/14 completed Not Available Not Available Not Available estradiol 0.05 mg/24 hr semiweekly transdermal patch APPLY 1 PATCH TOPICALLY TWICE WEEKLY active Not Available Not Available No t Available ciprofloxac in 500 mg tablet Take 1 tablet every 12 hours by oral route for 7 days. 09/15 completed Not Available Not Available Not Available sulfamethox azole 800 mg-trimetho prim 160 mg tablet TAKE 1 TABLET BY MOUTH EVERY 12 HOURS 10/28 completed Not Available Not Available Not Available acetaminoph en 500 mg tablet TAKE 2 TABLETS BY MOUTH THREE TIMES DAILY 07/26 completed Not Available Not Available Not Available ofloxacin 0.3 % ear drops INSTILL 10 DROPPERFU L TO LEFT EAR DAILY FOR 7 DAYS 07/26 completed Not Available Not Available Not Available benzonatate 100 mg capsule TAKE 1 CAPSULE BY MOUTH THREE TIMES DAILY FOR 3 DAYS 04/19 completed Not Available Not Available Not Available doxycycline monohydrate 100 mg capsule TAKE 1 CAPSULE BY MOUTH TWICE DAILY active Not Available Not Available No t Available docusate sodium 100 mg capsule TAKE ONE CAPSULE BY MOUTH TWICE DAILY 07/26 completed Not Available Not Available Not Available omeprazole 20 mg capsule,del ayed release TAKE 1 CAPSULE BY MOUTH EVERY DAY 04/19 completed Not Available Not Available Not Available ibuprofen 600 mg tablet TAKE 1 TABLET BY MOUTH THREE TIMES DAILY FOR 10 DAYS 07/26 completed Not Available Not Available Not Available estradiol 0.01% (0.1 mg/gram) vaginal cream INSERT 1 GRAM VAGINALLY THREE TIMES A WEEK 07/26 completed Not Available Not Available Not Available methylpredn isolone 4 mg tablets in a dose pack TAKE BY MOUTH DIRECTED ON INSIDE OF PACKAGE active Not Available Not Available No t Available albuterol sulfate HFA 90 mcg/actuati on aerosol inhaler INHALE 2 PUFFS BY MOUTH 4 TIMES DAILY NEEDED FOR SHORTNESS OF BREATH FOR WHEEZING active Not Available Not Available No t Available fluticasone propionate 50 mcg/actuati on nasal spray,suspe nsion SPRAY 2 SPRAYS IN EACH NOSTRIL DAILY 07/26 completed Not Available Not Available Not Available amoxicillin 875 mg-potassiu m clavulanate 125 mg tablet TAKE 1 TABLET BY MOUTH TWICE DAILY UNTIL GONE 07/26 completed Not Available Not Available Not Available oxycodone 5 mg tablet TAKE 1 TO 2 TABLETS BY MOUTH EVERY 4 TO 6 HOURS NEEDED FOR PAIN OR SEVERE PAIN. DO NOT EXCEED 9 TABLETS IN 24 HOURS 01/11 completed Not Available Not Available Not Available FeroSul 325 mg (65 mg iron) tablet Take 1 tablet every day by oral route for 60 days. 07/26 completed Not Available Not Available Not Available fenofibrate 120 mg tablet Take 1 tablet every day by oral route with meal(s). 04/19 completed Not Available Not Available Not Available iron 65 mg-65 mg-folic acid 1,000 mcg (24)-vit B and C 12-succ. tablet Take 1 tablet twice a day by oral route. 09/15 completed Not Available Not Available Not Available Real-Linyah 0.25 mg-0.035 mg tablet Take 1 tablet [...] mass index (BMI) Body weight Heart rate Respiratory rate Oxygen saturation Systolic And Diastolic Provider Name and Address Organization Details Last Updated DateTime 5 160.02 cm 28.3 kg/m2 84354.7 8 g 70 /min 18 /min 98 % 116/87 mm[Hg] Kristen Fontana [place] - [facility] 5 09:01:16 Social History Question Answer Notes LastModified by Organizat ion Details LastModified Time Tobacco Smoking Status Never Smoker Keke Jackson MA null, [place] - [facility] 07/12/2019 10:43:25 In The 14 Days Before Symptom Onset, [...] Date Of Your Most Recent Tobacco Screening? 07/26/2025 [email or web address] Information not available 07/26/2025 What Is Your Relationship Status? Information not available 11/14/2020 Do You Have Smoke And Carbon Monoxide Detectors In Your Home? Yes Information not available 11/14/2020 Are You Passively Exposed To Smoke? No Information no t available 07/16/2021 Has Tobacco Cessation Counseling Been Provided? Yes Information not available 11/14/2020 On What Date Was Tobacco Cessation Counseling Provided? 07/26/2025 Information not available 07/26/2025 Sex: Female Functional Status Question Answer Note LastModified by Organization D etails LastModified Time Do you or have you ever used any other forms of tobacco or nicotine? No Information not available 11/14/2020 What is your level of alcohol consumption? None Information not available 07/16/2021 Mental Status None recorded. Family History Relationship Description Onset Age of this Age Resolved Age Notes LastModified by Organization Details LastModified Time Mother Lupus erythematosu s [email or web address] Not available 2018 10:42:59 Mother Diabetes mellitus dx this year Not available 08/08/2021 11:52:42 Father Malignant neoplasm of prostate [email or web address] Not available 2018 10:43:21 Medical History Condition Response Coronary Artery Disease N Other N Atrial Fibrillation N High Blood Pressure N Depression N COPD N Blood Clots N Anxiety Disorder N Muscle, Joint, or Bone Problems N Acid Reflux (GERD) N Cancer N Stroke N High Cholesterol Y Liver Disease N Headaches N Kidney or Bladder Problems N Thyroid Problems N GI Problems N Skin Problems N Anemia Y Heart Attack (DC) N Diabetes N Seizures/Epilepsy N Asthma N Allergies N Hepatitis N Heart Failure N Osteoporosis N Gynecological History Statement/Question Response Date of Last Mammogram Flow Heavy Date of LMP 06/13/2022 Menses Monthly Y Date of Last Pap Smear Duration of Flow (days) 8 Age at Menarche 11 Current Control Method Hysterectom y LMP Definite Obstetrics History GPAL:G 3 P 3 0 0 3 Type Value Multiple Births 0 Full Term 3 Induced 0 Spontaneous 0 Premature 0 Living 3 Ectopics 0 Total 3 Immunizations Vaccine Type Date Status Note Provider Nam e and Address Organization Details Recorded Time COVID-19, mRNA, LNP-S, PF, 30 mcg/0.3 mL dose 1 completed Silva Peña [place] null, [place] - [facility] 01/11/2025 08:25:04 COVID-19, mRNA, LNP-S, PF, 30 mcg/0.3 mL dose 1 completed DIMAS [place], [place] - [facility] 01/11/2025 08:25:04 COVID-19, mRNA, LNP-S, PF, 30 mcg/0.3 mL dose 1 completed Silva Peña [place], [place] [facility] 01/11/2025 08:25:04 Influenza, split virus, trivalent, preservative 4 completed DIMAS [place], [place] [facility] 01/11/2025 08:25:04 COVID-19, mRNA, LNP-S, bivalent, PF, 30 mcg/0.3 mL dose 3 completed Not Available [facility] 07/26/2025 08:57:37 COVID-19, mRNA, LNP-S, PF, brooke-sucrose, 30 mcg/0.3 mL 4 completed Not Available [facility] 07/26/2025 08:57:37 Influenza, split virus, quadrivalent, PF 0 completed Not Available [facility] 09/18/2019 02:39:15 Influenza, split virus, quadrivalent, preservative 0 completed Silva Peña [place], [place] [facility] 06/16/2020 15:58:36 Influenza, split virus, quadrivalent, PF 1 completed Silva Pe[place] [facility] 07/16/2021 11:18:08 Influenza, split virus, quadrivalent, preservative 2 completed Silva Pe[place] [facility] 07/09/2022 15:40:01 Tdap 2 completed DARLING NEWBERRY Attn: Accounting[address] [place], [address], [place] [facility] 07/15/2022 09:42:23 Influenza, split virus, quadrivalent, PF 3 completed Silva Pe[place] [facility] 06/20/2023 12:18:26 Influenza, split virus, trivalent, PF 4 completed Kristen Font[place] [facility] 06/15/2024 11:13:06 Influenza, split virus, trivalent, PF 5 completed Jennifer Baptiste [place] [facility] 06/16/2025 10:16:42 Past Encounters Encounter ID Performer Location Encounter Start Date Encounter Closed Date Diagnosis/Indication Diagnosis SNOMED-CT Code Diagnosis ICD10 Code Diagnosis IMO Codes Diagnosis Note [id number] Otoniel Chase MD [facility] [address] [place] [address] 07/26/2025 08:54:16 07/26/2025 09:43:46 Prediabetes 924683646 R73.03 [id number] She has history of prediabete s. We will check routine lab work to ensure she is optimized. You can prevent or lower your risk of developing Type 2 Diabetes Mellitus by increasing physical activity, limiting carbohydra mica, choosing more vegetables , fruits, and whole grains. Do not deep-causey your food, choose lean cuts of meat, and lower fat versions of milk. Overweight 409540984 E66 .3 BMI: 28.3 DISH PERSON advised patient to follow a well balanced diet and obtain regular exercise. Informatio nal handout provided. Anemia 722431066 D64.9 No menstrual cycleParti al hysterecto my - September 20, 2024 She has history of anemia we will check an iron panel today -Trend CBC and iron levels-Con tinue current therapy-En couraged patient to consume iron rich foods such as:seafood , beans, dark green leafy vegetables such as spinach, liver and other organ meats, legumes, red meat, pumpkin seeds, quinoa, eggs, dry fruit such as raisins or apricots etc. Acute bronchitis 5071515 2 J20.9 [id number] no wheezing - has albuterol inhalerdox ycycline - continuesm ethylpredn isolone The patient continued to experience pressure in the chest and a dry cough despite previous treatment with steroids and antibiotic s. This suggests that the bronchitis might be lingering or partially treated. I have ordered a chest x-ray. We will make sure there is no underlying pneumonia. If she is still sx after completion of steroid/at bx therapy we will re-evaluat e her Advised on the pathophysi ology of bronchioli tis. Discussed the typical course with the cough and the illness. Peak of illness is usually 3-4 days. Advised on treatment of the cough with steam and cold. Gave instructio n on signs and Sx of respirator y distress. Gave reasons to go to the ED or call.Cool mist humidifier Seasonal allergy 7296003 04 J30.2 44971 The patient has a history of allergies, as evidenced by the previous use of cetirizine . This could contribute to sinus-rela ata symptoms. Education provided on cetirizine . She voices understand ing. Health Concerns Section Related Observation LastModified by Organization Detai ls LastModified Time None Recorded Concern Status LastModified by Organization Details LastModified Time None Recorded Payers Encounter Date Sequence Insurance Name Policy Number Policy Goodson Covered Member ID Goodson Member ID Guarantor Name 07/26/2025 1 [place] [id number] Lorraine Zaidi [id number] Lorraine Zaidi Notes Date Note Type Note Provider Name and Address Organization Details Recorded Time 07/26/2025 text/html ROS as noted in the HPI CC: The patient reported having bronchitis for the past three weeks. Initially, the patient experienced pressure in the chest, which later seemed to shift to the lower part of the eyes. The patient was treated with steroids at urgent care and subsequently with antibiotics at an emergency clinic but continued to experience chest pressure. The patient reported a dry cough and a sensation of needing to cough but being unable to do so effectively. The patient was taking Mucinex for eight days to decongest the chest and sinuses. The patient reported not having a fever, night sweats, or chills. The patient reported feeling tightness in the chest and was advised to continue taking Mucinex and to drink lots of water to help thin secretions. The patient was advised against using cough suppressants but was instructed to use expectorants to facilitate productive coughing. Silva neil NP Attn: Accounting[address] [place], [address], [facility] 07/26/2025 11:21:47 OBGyn Episode No OBEpisode recorded.
--- OUTSIDE RECORDS SUMMARY | 2025-07-26 17:25 | XMS_ITS | Clinical Summary ---
Author Organization [facility] Address [address] [place] [address] Care Team Providers Care Concrete Analyst Name Role Phone Cris Hay Primary Care Provider + Allergies No known active allergies Medications multivitamin with iron tablet Take 1 tablet by mouth 5 Active ferrous sulfate 325 mg (65 mg of elemental iron) tablet Take 1 tablet every day by oral route for 60 days. 4 Active ibuprofen (ADVIL,MOTRIN) 600 mg tablet TAKE 1 TABLET BY MOUTH THREE TIMES DAILY FOR 10 DAYS 5 Active estradioL (ESTRACE) 0.01 % (0.1 mg/gram) vaginal cream INSERT 1 GRAM VAGINALLY EVERY OTHER DAY FOR THE FIRST WEEK AFTER THAT CONTINUE USING 1 GRAM TWICE A WEEK Active acetaminophen (TYLENOL) 500 mg tablet Take by mouth 3 (three) times a day Active cetirizine (ZyrTEC) 10 mg tablet Take 1 tablet (10 mg total) by mouth daily Active Active Problems No known active problems Encounters Date Type Department Care Team Description 06/23/2025 Orders Only [facility] at [address] [address] Lennox Del Rosario MD PVD (peripheral vascular disease) (Primary Dx) 06/22/2025 8:45 AM CDT Office Visit [facility] at [address] [address] Ann Joyce PA PVD (peripheral vascular disease) (Primary Dx) 06/09/2025 8:30 AM CDT - 06/09/2025 11:59 PM CDT Hospital Encounter [facility] Ultrasound [address] [place] [address] Hematuria, unspecified type Discharge Disposition: Discharge to home or self care 05/24/2025 2:00 PM CDT Office Visit [facility] [place] [facility] [address] [place] [address] Stuart Osorio NP Hematuria, unspecified type (Primary Dx) from Last 3 Months Social History Tobacco Use Types Packs/Day Years Used Date Smoking Tobacco: Never Assessed Comments Unknown Sex and Gender Information Value Date Recorded Sex Assigned at Not on file Legal Sex Female 9:21 AM CDT Gender Identity Not on file Sexual Orientation Not on file Last Filed Vital Signs Vital Sign Reading Time Taken Comments Blood Pressure 114/53 06/22/2025 9:07 AM CDT Pulse 54 06/22/2025 9:07 AM CDT Temperature - - Respiratory Rate - - Oxygen Saturation 100% 06/22/2025 9:07 AM CDT Inhaled Oxygen Concentration - - Weight 72.6 kg (160 lb) 06/22/2025 9:07 AM CDT Height 157.5 cm (5' 2) 06/22/2025 9:07 AM CDT Body Mass Index 29.26 06/22/2025 9:07 AM CDT Plan of Treatment Health Maintenance Due Date Last Done Comments Breast Cancer Screening-Mammogram 1975 Cervical Cancer Screening 1975 Colon Cancer Screening-Colonoscopy 1975 Depression Screening 1975 Hepatitis C Screening 1975 Hepatitis B Screening 12/15/1993 Regular Well Visit/Exam 18-64 12/15/1993 Covid-19 Vaccine ( season) 2025 02/05/2024, 01/21/2023, 08/05/2021, Additional history exists DTaP/Tdap/Td Vaccine (2 - Td or Tdap) 07/10/2032 07/10/2022 Influenza Vaccine Completed 06/16/2025, , 06/20/2023, Additional history exists Pneumococcal vaccine <65 Aged Out No longer eligible based on patient's age to complete this topic Procedures Procedure Name Priority Date/Time Associated Diagnosis Comments US KIDNEY COMPLETE Schedule Routine, Read Routine (OP Routine) 06/09/2025 9:00 AM CDT Hematuria, unspecified type POCT URINALYSIS DIPSTICK Routine 05/24/2025 2:23 PM CDT Hematuria, unspecified type from Last 3 Months Results * US Kidney Complete (06/09/2025 9:00 AM CDT) Anatomical Region Laterality Modality Kidney N/A Ultrasound 06/11/2025 10:4 8 PM CDT Narrative 06/11/2025 10:49 PM CDT EXAM DESCRIPTION: US KIDNEY COMPLETE REASON FOR STUDY: Gross hematuria TECHNIQUE: Ultrasound of the kidneys and urinary bladder was performed with grayscale imaging. COMPARISON: None FINDINGS: RIGHT KIDNEY: The right kidney measures 11.6 cm in length. There is no hydronephrosis. There is normal cortical thickness and echogenicity. 3 mm nonobstructing stone right kidney. LEFT KIDNEY: The left kidney measures 12.3 cm in length. There is no hydronephrosis. There is normal cortical thickness and echogenicity. There are 3 nonobstructing left renal stones measuring 6 mm, 5 mm and 6 mm respectively. URINARY BLADDER: The urinary bladder, as visualized, appears unremarkable. The bilateral ureteral jets are visualized. OTHER: No other additional findings. IMPRESSION: Bilateral nonobstructing renal stones. No hydronephrosis. THIS IS AN ELECTRONICALLY VERIFIED FINAL REPORT 06/11/2025 10:49 PM - Electronically signed by Amado Landin M.D. KT: NETO Report ID: [id number] Reading Location: [id number] Procedure Note Amado Landin MD - 06/11/2025 EXAM DESCRIPTION: US KIDNEY COMPLETE REASON FOR STUDY: Gross hematuria TECHNIQUE: Ultrasound of the kidneys and urinary bladder was performedwith grayscale imaging. COMPARISON: None FINDINGS: RIGHT KIDNEY: The right kidney measures 11.6 cm in length.There is no hydronephrosis. There is normal cortical thickness and echogenicity.3 mm nonobstructing stone right kidney. LEFT KIDNEY: The left kidney measures 12.3 cm in length. There is no hydronephrosis. There is normal cortical thickness and echogenicity.There are 3 nonobstructing left renal stones measuring 6 mm, 5 mm and 6 mm respectively. URINARY BLADDER: The urinary bladder, as visualized, appearsunremarkable. The bilateral ureteral jets are visualized. OTHER: No other additional findings. IMPRESSION: Bilateral nonobstructing renal stones. No hydronephrosis. THIS IS AN ELECTRONICALLY VERIFIED FINAL REPORT 06/11/2025 10:49 PM - Electronically signed by Amado Landin M.D. KT: NETO Report ID: [id number] Reading Location: [place] [address] Stuart Osorio SUPERVISOR STITCHING DEPARTMENT IMG US PROCEDURES Final Resul t * (ABNORMAL) POCT urinalysis dipstick (05/24/2025 2:23 PM CDT) Color, Urine, POC Yellow Clarity, ur, POC Clear Clear Glucose, ur, POC Negative Negative Bilirubin, ur, POC Negative Negative Ketones, ur, POC Negative Negative Specific [place], POC 1.015 1.003 - 1.030 Blood, ur, POC Negative Negative pH, ur, POC 1.0(A) 5.0 - 8.0 Protein, ur, POC Negative Negative Urobilinogen, urine, POC 0.2 0.2 - 1.0 mg/dL Nitrite, ur, POC Negative Negative Leukocytes, ur, POC Negative Negative Lot Number 0 Urine 05/24/2025 2:23 PM CDT Stuart Osorio NP POINT OF CARE TEST ORDERABLES Final Result from Last 3 Months [place] Care Teams Concrete Analyst Relationship Specialty Start Date End Date Cris Hay PA [address] [place] [id number] PCP - General Physician Cook [employer] 05/05/25
--- OUTSIDE RECORDS SUMMARY | 2025-07-26 17:25 | XMS_ITS | Continuity of Care Document ---
Author Organization [facility] Address [address] [place] [address] Care Team Providers Care Reporting Process Consultant Name Role Phone DALE GOMEZ Primary Care Provider Assessment No assessment recorded. Plan of Treatment Reminders Order Date Submit Date Provider Last Modified By Organization Details Last Modified Time Details Appointments ANY 025 08:00AM Silva Fletcher NP Not available Not available Not available Lab None record ed. Referral None record ed. Procedures None record ed. Surgeries None record ed. Imaging None record ed. Medication Orders None record ed. Patient TargetsNo targets recorded. Patient InstructionsNo instructions recorded. Reason for Referral None Reported. Problems Name Problem SNOMED Code Status Onset Date Resolution Date Notes Provider Name and Address Organization Details Recorded Time Anemia 758154656 Active 2018 Keke Jackson MA [facility], [place] - [facility] 9 10:41:09 Uterine leiomyoma 12733753 Active 2020 DARLING NEWBERRY Attn: Geeta brown,[address] [facility], [place], [address], [facility] - [place] 1 11:44:50 Prediabetes 227690797 Active 2021 DARLING NEWBERRY Attn: Geeta brown,[address] [facility], [place], [address], [facility] - [place] 5 11:40:33 Fatigue 85848161 Active 2021 DARLING NEWBERRY Attn: Geeta brown,[address] [facility], [place], [address], [facility] - [place] 2 16:25:08 Thoracic back pain 965734012 Active 2021 DARLING NEWBERRY Attn: Accountin g,[address] [facility] [facility], [place], [address], [place] - [facility] 2 09:47:24 Low back pain 789209207 Active 2021 DARLING NEWBERRY Attn: Accountsalud g,[address] [facility] [facility], [place], [address], [place] [facility] 2 09:47:25 History of surgery 023072750 Active 2021 DARLING NEWBERRY Attn: Accountin g,[address] [facility], [place], [address], [place] [facility] 2 09:19:08 Iron deficiency anemia 42732354 Active 2022 DARLING NEWBERRY Attn: Accountin g,[address] [facility], [place], [address], [place] [facility] 3 11:01:29 Varicose veins of lower extremity 74891381 Active 2022 DARLING NEWBERRY Attn: Accountin g,[address] [facility], [place], [address], [place] [facility] 3 11:03:20 Pain in pelvis 94087591 Active 2023 DARLING NEWBERRY Attn: Accountin kevin,[address] [facility] [facility], [place], [address], [place] [facility] 4 09:16:53 Overweight 809629064 Active 2023 DARLING NEWBERRY Attn: Accountin g,[address] [facility], [place], [address], [place] [facility] 4 09:16:57 Varicose veins of lower extremity 45811338 Active 2024 DARLING NEWBERRY Attn: Accountin g,[address] [facility], [place], [address], [place] [facility] 09:23:37 History of hysterectomy 197142061 Active 2024 DARLING NEWBERRY Attn: Geeta brown,[address], [place], [address], [facility] - [place] 5 09:24:04 Blood in urine 03445912 Active 2024 DARLING NEWBERRY Attn: Geeta brown,[address], [place], [address], [facility] - [place] 5 11:40:35 Problem Notes None recorded. Procedures Surgical History Date Name Laterality Status Provider Name and Address Organization Details Recorded Time 09/20/19 total abdominal hysterectomy completed Silva Peña [place] 01/11/2025 08:41:15 Appendectomy completed Keke Jackson [place] 07/12/2019 10:43:41 Imaging Results None recorded. [...] completed Not Available Not Available Not Available Storey-Linyah 0.25 mg-0.035 mg tablet Take 1 tablet [...] Not Available Not Available Not Available Vitals None Recorded Social History Question Answer Notes LastModified by Organizat ion Details LastModified Time Tobacco Smoking Status Never Smoker DIM[place], [place] - [facility] 07/12/2019 10:43:25 In The 14 Days Before [...] Of Your Most Recent Tobacco Screening? 07/26/2025 [email or web address] Information not available 07/26/2025 What Is Your Relationship Status? Information not available 11/14/2020 Do You Have Smoke And Carbon Monoxide Detectors In Your Home? Yes Information not available 11/14/2020 Are You Passively Exposed To Smoke? No Information no t available 07/16/2021 Has Tobacco Cessation Counseling Been Provided? Yes Information not available 11/14/2020 On What Date Was Tobacco Cessation Counseling Provided? 07/26/2025 [email or web address] Information not available 07/26/2025 Sex: Female Functional [...] Response Coronary Artery Disease N Other N High Blood Pressure N Atrial Fibrillation N Kidney or Bladder Problems N Thyroid Problems N GI Problems N Depression N COPD N Blood Clots N Skin Problems N Anemia Y Heart Attack ([place]) N Anxiety Disorder N Diabetes N Muscle, Joint, or Bone Problems N Seizures/Epilepsy N Acid Reflux (GERD) N Cancer N Stroke N Asthma N Allergies N High Cholesterol Y Hepatitis N Liver Disease N Headaches N Osteoporosis N Heart Failure N Gynecological History Statement/Question Response Date of [...] Influenza, split virus, trivalent, preservative 4 completed Silva Peña [place] null, [place] [facility] 01/11/2025 08:25:04 COVID-19, mRNA, LNP-S, bivalent, PF, 30 mcg/0.3 mL dose 3 completed Not Available [facility] 07/26/2025 08:57:37 COVID-19, mRNA, LNP-S, PF, brooke-sucrose, 30 mcg/0.3 mL 4 completed Not Available [facility] 07/26/2025 08:57:37 Influenza, split virus, quadrivalent, PF 0 completed Not Available [facility] 09/18/2019 02:39:15 Influenza, split virus, quadrivalent, preservative 0 completed Silva Peña [place], [place] [facility] 06/16/2020 15:58:36 Influenza, split virus, quadrivalent, PF 1 completed Silva Peña [place] [facility] 07/16/2021 11:18:08 Influenza, split virus, quadrivalent, preservative 2 completed Silva Peña [place] [facility] 07/09/2022 15:40:01 Tdap 2 completed DARLING NEWBERRY Attn: Accounting,[address] [facility] [facility], [place], [address], [place] [facility] 07/15/2022 09:42:23 Influenza, split virus, quadrivalent, PF 3 completed Silva Peña [place], [place] [facility] 06/20/2023 12:18:26 Influenza, split virus, trivalent, PF 4 completed Kristen Fontana [place], [place] [facility] 06/15/2024 11:13:06 Influenza, split virus, trivalent, PF 5 completed Jennifer Baptiste [place] null, [place] [facility] 06/16/2025 10:16:42 Past Encounters Encounter ID Performer Location Encounter Start Date Encounter Closed Date Diagnosis/Indication Diagnosis SNOMED-CT Code Diagnosis ICD10 Code Diagnosis IMO Codes Diagnosis Note [id number] Otoniel Chase MD [facility] [address] [place] [address] 06/16/2025 10:06:35 06/16/2025 10:16:46 Requires influenza virus vaccination [id number] Z23 [id number] Health Concerns Section Related Observation LastModified by Organization Detai ls LastModified Time None Recorded Concern Status LastModified by Organization Details LastModified Time None Recorded Payers Encounter Date Sequence Insurance Name Policy Number Policy Goodson Covered Member ID Goodson Member ID Guarantor Name 06/16/2025 1 [employer] [id number] Lorraine Zaidi [id number] Lorraine Zaidi OBGyn Episode No OBEpisode recorded.
--- OUTSIDE RECORDS SUMMARY | 2025-07-26 17:25 | XMS_ITS | Data Portability ---
Author Organization [facility] Address [address], [place] [address] Care Team Providers Care Analytics Senior Manager Name Role Phone DALE GOMEZ Primary Care Provider [phone] Assessment Encounter Date Assessment Date Assessment LastModified by Organization Details LastModified Time 01/11/2025 01/11/2025 R leg varicose veins Not available 01/11/2025 08:50:48 04/19/2025 04/19/2025 04/18/2025 labs Not available 04/19/2025 10:36:21 07/26/2025 07/26/2025 mammogram 11/30/24 [email or web address] 04/03/25 [email or web address] Not available 07/26/2025 11:17:19 Plan of Treatment Reminders Order Date Submit Date Provider Last Modified By Organization Details Last Modified Time Details Appointments ANY 30 2024 08:00A Meggan Fletcher NP Not available Not available Not available Lab lipid panel, serum 2024 025 ADALGISA LABKY, Tara jesus alberto [place], [facility] [address], [place], [address], 07/26/2025 09:32:20 TSH + free T4, serum 2024 025 ADALGISA GRAY, [facility], [address], [place], [address], 07/26/2025 09:32:22 HbA1c (hemoglob in A1c), blood 2024 025 ADALGISA GRAY, Tara [place], [address], [place], [address], 07/26/2025 09:33:39 CMP, serum or plasma 2024 ADALGISA GRAY, Tara [place], [address], [place], [address], 07/26/2025 09:32:21 CBC w/ auto diff 2024 ADALGISA GRAY, Tara [place], [address], [place], [address], 07/26/2025 09:32:23 albumin/c reatinine , mass ratio, urine 2024 ADALGISA GRAY, Tara jesus alberto [address]ak, [address], [place], [address], 07/26/2025 09:32:20 ferritin, serum or plasma 2024 ADALGISA GRAY, Tara [place], [address], [place], [address], 07/26/2025 09:32:21 iron, serum 2024 ADALGISA GRAY, Tara jesus alberto [address], [address], [place], [address], 07/26/2025 09:32:22 TIBC (total iron-bind ing capacity) , serum 2024 ADALGISA GRAY, Tara Felix [address], [address], [place], [address], 07/26/2025 09:32:23 HbA1c (hemoglob in A1c), blood 2024 ADALGISA GRAY, Tara Felix [address], [address], [place], [address], 04/19/2025 13:13:27 lipid panel, serum 2024 025 ADALGISA GRAY, Tara [place], [address], [place], [address], 04/19/2025 13:13:23 CMP, serum or plasma 2024 025 ADALGISA GRAY, Tara Felix [address], [address], [place], [address], 04/19/2025 13:13:24 urinalysi s complete, reflex culture 2024 025 ADALGISA GRAY, Tara Felix [address], [address], [place], [address], 04/19/2025 13:13:26 CBC w/ auto diff 2024 025 ADALGISA GRAY, Tara Simonsedgar [address]ner, [address], [place], [address], 01/12/2025 12:24:37 iron + total iron-bind ing capacity (TIBC), serum 2024 025 ADALGISA GRAY, Tara Felix [address], [address], [place], [address], 01/12/2025 12:24:34 ferritin, serum or plasma 2024 025 ADALGISA GRAY, Tara Felix [address], [address], [place], [address], 01/12/2025 12:24:36 HbA1c (hemoglob in A1c), blood 2024 025 ADALGISA GRAY, Tara Felix [address], [address], [place], [address], 01/12/2025 12:24:35 CMP, serum or plasma 2024 025 [facility], [address] [facility] [facility], [address], [place], [address], 01/12/2025 12:24:33 lipid panel, serum 2024 025 [facility], [address], [address], [place], [address], 01/12/2025 12:24:32 Referral vein specialis t referral 2024 [facility], [address] , [address], [place], [address], 06/22/2025 10:39:12 pelvic floor therapy referral [address] (Outpatient Physical Therapy), [address], [place], [address], 05/03/2025 14:23:16 urologist referral [id number] Urology [facility], [address] , [address], [place], [address], 06/15/2025 08:12:46 pelvic floor therapy referral 2024 [facility] (Outpatient Physical Therapy), [address], [place], [address], 02/09/2025 12:27:32 Procedures None recorded. Surgeries None recorded. Imaging XR, chest, 2 view - cough, shortness of breath [address] [facility], [address], [place], [address], 07/26/2025 09:43:46 US, duplex, venous, lower extremity [id number] [place] [address] [facility] Center, [address], [place], [address], 03/08/2025 17:35:45 Medication Orders cetirizin e 10 mg tablet 2024 [id number], [address], [place], [place], [id number], 07/26/2025 09:32:24 atorvasta tin 20 mg tablet 2024 [id number], [address], [place], [place], [id number], 07/26/2025 07:55:52 Patient TargetsNo targets recorded. Patient Instructions Encounter Date Encounter Id Patient Instructions Last Modified By Organization Details Last Modified Time 04/18/2025 [id number] A healthy lifestyle: care instructions Not available 04/19/2025 11:40:11 07/26/2025 [id number] A healthy lifestyle: care instructions [email or web address] Not available 07/26/2025 11:20:31 The patient was [...] 2 years or as indicated by ophthalmology acroessmanmarsha Not available 07/26/2025 11:17:52 Treatment: - Continued [...] Not available 07/26/2025 11:15:51 Reason for Referral Pelvic Floor Therapy Referra l for History of hysterectomy Referring Physician: Dale Gomez Dental Director, Encounter Date: 01/11/2025 Urologist Referral for Blood in urine Referring Physician: Dale Gomez Dental Director, Encounter Date: 04/18/2025 Pelvic Floor Therapy Referra l for History of hysterectomy Referring Physician: Dale Gomez Dental Director, Encounter Date: 04/18/2025 Vein Specialist Referral for Varicose veins of lower extremity Referring Physician: Dale Gomez Dental Director, Encounter Date: 04/18/2025 Results Created Date Observation Date Name Description Value Unit Range Abnormal Flag Note LastModifiedBy Organization Detail LastModifiedTime 01/12/2001/12/2025 LIPID PANEL cholesterol, total 297 mg/dL 100-19 9 above high normal Not Available [facility] ([facility]) [address] [place], [address], 01/12/2025 12:24:32 01/12/2001/12/2025 LIPID PANEL triglyceride s 647 mg/dL 0-149 alert high Not Available [facility] ([facility]) [address] [place], [address], 01/12/2025 12:24:32 01/12/2001/12/2025 LIPID PANEL HDL cholesterol 43 mg/dL >39 Not Available [facility] ([facility]) [address] [place], [address], 01/12/2025 12:24:32 01/12/2001/12/2025 LIPID PANEL VLDL cholesterol colby 121 mg/dL 5-40 above high normal Not Available [facility] ([facility]) [address] [place], [address], 01/12/2025 12:24:32 01/12/20 25 01/12/2025 LIPID PANEL LDL chol calc ([facility]) 133 mg/dL 0-99 above high normal Not Available [facility] ([facility]) [address] [place], [address], 01/12/2025 12:24:32 01/12/20 25 01/12/2025 LIPID PANEL LDL calc comment: COMMEN T Consi sami evalu ating for Famil ial Hyper milly stero lemia (FH), if clini michael indic ated. Not Available [facility] ([facility]) [address] [facility], [place], [address], 01/12/2025 12:24:32 01/12/20 25 01/12/2025 COMP. METAB OLIC PANEL (14) glucose 110 mg/dL 70-99 above high normal Not Available [facility] ([facility]) [address] [place], [address], 01/12/2025 12:24:33 01/12/20 25 01/12/2025 COMP. METAB OLIC PANEL (14) BUN 11 mg/dL 6-24 Not Available [facility] ([facility]) [address] [place], [address], 01/12/2025 12:24:33 01/12/20 25 01/12/2025 COMP. METAB OLIC PANEL (14) creatinine 0.66 mg/dL 0.57-1 .00 Not Available [facility] ([facility]) [address] [place], [address], 01/12/2025 12:24:33 01/12/20 25 01/12/2025 COMP. METAB OLIC PANEL (14) eGFR 107 mL/mi n/1.7 3 >59 Not Available [facility] ([facility]) [address] [place], [address], 01/12/2025 12:24:33 01/12/20 25 01/12/2025 COMP. METAB OLIC PANEL (14) BUN/creatini ne ratio 17 9-23 Not Available [facility] ([facility]) [address] [place], [address], 01/12/2025 12:24:33 01/12/20 25 01/12/2025 COMP. METAB OLIC PANEL (14) sodium 138 mmol/ L 134-14 4 Not Available [facility] ([facility]) [address] [place], [address], 01/12/2025 12:24:33 01/12/20 25 01/12/2025 COMP. METAB OLIC PANEL (14) potassium 4.4 mmol/ L 3.5-5. 2 Not Available [facility] ([facility]) [address] [facility], [place], [address], 01/12/2025 12:24:33 01/12/20 25 01/12/2025 COMP. METAB OLIC PANEL (14) chloride 102 mmol/ L 96-106 Not Available [facility] ([facility]) [address] [place], [address], 01/12/2025 12:24:33 01/12/20 25 01/12/2025 COMP. METAB OLIC PANEL (14) carbon dioxide, total 22 mmol/ L 20-29 Not Available [facility] ([facility]) [address] [place], [address], 01/12/2025 12:24:33 01/12/20 25 01/12/2025 COMP. METAB OLIC PANEL (14) calcium 9.2 mg/dL 8.7-10 .2 Not Available [facility] ([facility]) [address] [place], [address], 01/12/2025 12:24:33 01/12/20 25 01/12/2025 COMP. METAB OLIC PANEL (14) protein, total 6.8 g/dL 6.0-8. 5 Not Available [facility] ([facility]) [address] [facility] [place], [address], 01/12/2025 12:24:33 01/12/20 25 01/12/2025 COMP. METAB OLIC PANEL (14) albumin 4.4 g/dL 3.9-4. 9 Not Available [facility] ([facility]) [address] [facility], [address], 01/12/2025 12:24:33 01/12/20 25 01/12/2025 COMP. METAB OLIC PANEL (14) globulin, total 2.4 g/dL 1.5-4. 5 Not Available [facility] ([facility]) [address] [facility], [address], 01/12/2025 12:24:33 01/12/20 25 01/12/2025 COMP. METAB OLIC PANEL (14) bilirubin, total 0.2 mg/dL 0.0-1. 2 Not Available [facility] ([facility]) [address] [facility] [place], [address], 01/12/2025 12:24:33 01/12/20 25 01/12/2025 COMP. METAB OLIC PANEL (14) alkaline phosphatase 89 IU/L 44-121 Not Available [facility] ([facility]) [address] [facility], [address], 01/12/2025 12:24:33 01/12/20 25 01/12/2025 COMP. METAB OLIC PANEL (14) AST (SGOT) 23 IU/L 0-40 Not Available [facility] ([facility]) [address] [facility] [place], [address], 01/12/2025 12:24:33 01/12/20 25 01/12/2025 COMP. METAB OLIC PANEL (14) ALT (SGPT) 28 IU/L 0-32 Not Available [facility] ([facility]) [address] [place], [address], 01/12/2025 12:24:33 01/12/20 25 01/12/2025 IRON AND TIBC iron bind.cap.(TI BC) 348 ug/dL 250-45 0 Not Available [facility] ([facility]) [address] [place], [address], 01/12/2025 12:24:34 01/12/20 25 01/12/2025 IRON AND TIBC UIBC 307 ug/dL 131-42 5 Not Available [facility] ([facility]) [address] [place], [address], 01/12/2025 12:24:34 01/12/20 25 01/12/2025 IRON AND TIBC iron 41 ug/dL 27-159 Not Available [facility] ([facility]) [address] [place], [address], 01/12/2025 12:24:34 01/12/20 25 01/12/2025 IRON AND TIBC iron saturation 12 % 15-55 below low normal Not Available [facility] ([facility]) [address] [place], [address], 01/12/2025 12:24:34 01/12/20 25 01/12/2025 HEMOG LOBIN A1C hemoglobin A1C 6.3 % 4.8-5. 6 above high normal Predi abete s: 5.7 - 6.4 Diabe mica: >6.4 Glyce alonso contr ol for adult s with diabe mica: <7.0 Not Available [facility] ([facility]) [address] [place], [address], 01/12/2025 12:24:35 01/12/20 25 01/12/2025 AMINA TIN ferritin 16 NG/mL 15-150 Not Available [facility] ([facility]) [address] [place], [address], 01/12/2025 12:24:36 01/12/20 25 01/12/2025 CBC WITH DIFFE RENTI AL/PL ATELE T WBC 9.8 x10e3 /uL 3.4-10 .8 Not Available [facility] ([facility]) [address] [facility], [place], [address], 01/12/2025 12:24:37 01/12/20 25 01/12/2025 CBC WITH DIFFE RENTI AL/PL ATELE T RBC 4.57 x10e6 /uL 3.77-5 .28 Not Available [facility] ([facility]) [address] [facility], [place], [address], 01/12/2025 12:24:37 01/12/20 25 01/12/2025 CBC WITH DIFFE RENTI AL/PL ATELE T hemoglobin 12.6 g/dL 11.1-1 5.9 Not Available [facility] ([facility]) [address] [facility], [place], [address], 01/12/2025 12:24:37 01/12/20 25 01/12/2025 CBC WITH DIFFE RENTI AL/PL ATELE T hematocrit 39.6 % 34.0-4 6.6 Not Available [facility] ([facility]) [address] [facility], [place], [address], 01/12/2025 12:24:37 01/12/2001/12/2025 CBC WITH DIFFE RENTI AL/PL ATELE T MCV 87 fL 79-97 Not Available [facility] ([facility]) [address] [place], [address], 01/12/2025 12:24:37 01/12/20 25 01/12/2025 CBC WITH DIFFE RENTI AL/PL ATELE T MCH 27.6 pg 26.6-3 3.0 Not Available [facility] ([facility]) [address] [place], [address], 01/12/2025 12:24:37 01/12/20 25 01/12/2025 CBC WITH DIFFE RENTI AL/PL ATELE T MCHC 31.8 g/dL 31.5-3 5.7 Not Available [facility] ([facility]) [address] [facility], [place], [address], 01/12/2025 12:24:37 01/12/20 25 01/12/2025 CBC WITH DIFFE RENTI AL/PL ATELE T RDW 15.9 % 11.7-1 5.4 above high normal Not Available [facility] ([facility]) [address] [facility], [place], [address], 01/12/2025 12:24:37 01/12/20 25 01/12/2025 CBC WITH DIFFE RENTI AL/PL ATELE T platelets 306 x10e3 /uL 150-45 0 Not Available [facility] ([facility]) [address] [facility], [place], [address], 01/12/2025 12:24:37 01/12/20 25 01/12/2025 CBC WITH DIFFE RENTI AL/PL ATELE T neutrophils 55 % notest ab. Not Available [facility] ([facility]) [address] [facility], [place], [address], 01/12/2025 12:24:37 01/12/20 25 01/12/2025 CBC WITH DIFFE RENTI AL/PL ATELE T lymphs 31 % notest ab. Not Available [facility] ([facility]) [address] [place], [address], 01/12/2025 12:24:37 01/12/20 25 01/12/2025 CBC WITH DIFFE RENTI AL/PL ATELE T monocytes 6 % notest ab. Not Available [facility] ([facility]) [address] [place], [address], 01/12/2025 12:24:37 01/12/20 25 01/12/2025 CBC WITH DIFFE RENTI AL/PL ATELE T eos 7 % notest ab. Not Available [facility] ([facility]) [address] [place], [address], 01/12/2025 12:24:37 01/12/20 25 01/12/2025 CBC WITH DIFFE RENTI AL/PL ATELE T basos 1 % notest ab. Not Available [facility] ([facility]) [address] [place], [address], 01/12/2025 12:24:37 01/12/20 25 01/12/2025 CBC WITH DIFFE RENTI AL/PL ATELE T neutrophils (absolute) 5.4 x10e3 /uL 1.4-7. 0 Not Available [facility] ([facility]) [address] [place], [address], 01/12/2025 12:24:37 01/12/20 25 01/12/2025 CBC WITH DIFFE RENTI AL/PL ATELE T lymphs (absolute) 3.0 x10e3 /uL 0.7-3. 1 Not Available [facility] ([facility]) [address] [place], [address], 01/12/2025 12:24:37 01/12/20 25 01/12/2025 CBC WITH DIFFE RENTI AL/PL ATELE T monocytes(ab solute) 0.6 x10e3 /uL 0.1-0. 9 Not Available [facility] ([facility]) [address] [place], [address], 01/12/2025 12:24:37 01/12/20 25 01/12/2025 CBC WITH DIFFE RENTI AL/PL ATELE T eos (absolute) 0.6 x10e3 /uL 0.0-0. 4 above high normal Not Available [facility] ([facility]) [address] [place], [address], 01/12/2025 12:24:37 01/12/20 25 01/12/2025 CBC WITH DIFFE RENTI AL/PL ATELE T baso (absolute) 0.1 x10e3 /uL 0.0-0. 2 Not Available [facility] ([facility]) [address] [place], [address], 01/12/2025 12:24:37 01/12/20 25 01/12/2025 CBC WITH DIFFE RENTI AL/PL ATELE T immature granulocytes 0 % notest ab. Not Available [facility] ([facility]) [address] [place], [address], 01/12/2025 12:24:37 01/12/20 25 01/12/2025 CBC WITH DIFFE RENTI AL/PL ATELE T immature grans (abs) 0.0 x10e3 /uL 0.0-0. 1 Not Available [facility] ([facility]) [address] [place], [address], 01/12/2025 12:24:37 04/18/20 25 04/19/2025 SPECI MEN STATU S REPOR T specimen status report TNP Test not perfo rmed. No serum gel recei mike. TEST: 49010 3 CMP14 +eGFR [id number] 6 Lipid Panel Not Available [facility] ([facility]) [address] [place], [address], 04/19/2025 13:13:22 04/18/20 25 04/20/2025 LIPID PANEL cholesterol, total 259 mg/dL 100-19 9 above high normal Not Available [facility] ([facility]) [address] [place], [address], 04/20/2025 12:12:00 04/18/20 25 04/20/2025 LIPID PANEL triglyceride s 245 mg/dL 0-149 above high normal Not Available [facility] ([facility]) [address] [place], [address], 04/20/2025 12:12:00 04/18/20 25 04/20/2025 LIPID PANEL HDL cholesterol 54 mg/dL >39 Not Available [facility] ([facility]) [address] [facility], [place], [address], 04/20/2025 12:12:00 04/18/20 25 04/20/2025 LIPID PANEL VLDL cholesterol colby 45 mg/dL 5-40 above high normal Not Available [facility] ([facility]) [address] [facility], [place], [address], 04/20/2025 12:12:00 04/18/20 25 04/20/2025 LIPID PANEL LDL chol calc ([facility]) 160 mg/dL 0-99 above high normal Not Available [facility] ([facility]) [address] [facility], [place], [address], 04/20/2025 12:12:00 04/18/20 25 04/19/2025 MICRO SCOPI C EXAMI NATIO N WBC None seen /hpf 0-5 Not Available [facility] ([facility]) [address] [facility], [place], [address], 04/19/2025 13:13:24 04/18/20 25 04/19/2025 MICRO SCOPI C EXAMI NATIO N RBC None seen /hpf 0-2 Not Available [facility] ([facility]) [address] [facility], [place], [address], 04/19/2025 13:13:24 04/18/20 25 04/19/2025 MICRO SCOPI C EXAMI NATIO N epithelial cells (non renal) 0-10 /hpf 0-10 Not Available [facility] ([facility]) [address] [facility], [place], [address], 04/19/2025 13:13:24 04/18/20 25 04/19/2025 MICRO SCOPI C EXAMI NATIO N casts None seen /lpf nonese en Not Available [facility] ([facility]) [address] [facility], [place], [address], 04/19/2025 13:13:24 04/18/20 25 04/19/2025 MICRO SCOPI C EXAMI NATIO N bacteria None seen nonese en/few Not Available [facility] ([facility]) [address] [facility], [place], [address], 04/19/2025 13:13:24 04/18/20 25 04/20/2025 CMP14 +EGFR glucose - mg/dL Test not perfo rmed. Serum was in conta ct with cells when recei mike which will make the resul t inacc urate . Not Available [facility] ([facility]) [address] [facility], [place], [address], 04/20/2025 12:12:01 04/18/20 25 04/20/2025 CMP14 +EGFR BUN 9 mg/dL 6-24 Not Available [facility] ([facility]) [address] [facility], [place], [address], 04/20/2025 12:12:01 04/18/2004/20/2025 CMP14 +EGFR creatinine 0.60 mg/dL 0.57-1 .00 Not Available [facility] ([facility]) [address] [facility], [place], [address], 04/20/2025 12:12:01 04/18/20 25 04/20/2025 CMP14 +EGFR eGFR 110 mL/mi n/1.7 3 >59 Not Available [facility] ([facility]) [address] [facility], [place], [address], 04/20/2025 12:12:01 04/18/20 25 04/20/2025 CMP14 +EGFR BUN/creatini ne ratio 15 9-23 Not Available [facility] ([facility]) [address] [facility], [place], [address], 04/20/2025 12:12:01 04/18/20 25 04/20/2025 CMP14 +EGFR sodium 137 mmol/ L 134-14 4 Not Available [facility] ([facility]) [address] [facility], [place], [address], 04/20/2025 12:12:01 04/18/20 25 04/20/2025 CMP14 +EGFR potassium - mmol/ L Test not perfo rmed. Serum was in conta ct with cells when recei mike which will make the resul t inacc urate . Not Available [facility] ([facility]) [address] [facility], [place], [address], 04/20/2025 12:12:01 04/18/20 25 04/20/2025 CMP14 +EGFR chloride 101 mmol/ L 96-106 Not Available [facility] ([facility]) [address] [place], [address], 04/20/2025 12:12:01 04/18/20 25 04/20/2025 CMP14 +EGFR carbon dioxide, total 21 mmol/ L 20-29 Not Available [facility] ([facility]) [address] [place], [address], 04/20/2025 12:12:01 04/18/20 25 04/20/2025 CMP14 +EGFR calcium 9.1 mg/dL 8.7-10 .2 Not Available [facility] ([facility]) [address] [place], [address], 04/20/2025 12:12:01 04/18/20 25 04/20/2025 CMP14 +EGFR protein, total 6.6 g/dL 6.0-8. 5 Not Available [facility] ([facility]) [address] [place], [address], 04/20/2025 12:12:01 04/18/20 25 04/20/2025 CMP14 +EGFR albumin 4.4 g/dL 3.9-4. 9 Not Available [facility] ([facility]) [address] [facility], [place], [address], 04/20/2025 12:12:01 04/18/2004/20/2025 CMP14 +EGFR globulin, total 2.2 g/dL 1.5-4. 5 Not Available [facility] ([facility]) [address] [facility], [place], [address], 04/20/2025 12:12:01 04/18/2004/20/2025 CMP14 +EGFR bilirubin, total 0.5 mg/dL 0.0-1. 2 Not Available [facility] ([facility]) [address] [facility], [place], [address], 04/20/2025 12:12:01 04/18/2004/20/2025 CMP14 +EGFR alkaline phosphatase 75 IU/L 44-121 Not Available [facility] ([facility]) [address] [facility], [place], [address], 04/20/2025 12:12:01 04/18/2004/20/2025 CMP14 +EGFR AST (SGOT) 15 IU/L 0-40 Not Available [facility] ([facility]) [address] [facility], [place], [address], 04/20/2025 12:12:01 04/18/2004/20/2025 CMP14 +EGFR ALT (SGPT) 15 IU/L 0-32 Not Available [facility] ([facility]) [address] [facility], [place], [address], 04/20/2025 12:12:01 04/18/2004/19/2025 UA/M W/RFL X CULTU RE, ROUTI NE specific gravity 1.012 1.005- 1.030 Not Available [facility] ([facility]) [address] [place], [address], 04/19/2025 13:13:26 04/18/20 25 04/19/2025 UA/M W/RFL X CULTU RE, ROUTI NE pH 6.5 5.0-7. 5 Not Available [facility] ([facility]) [address] [facility], [place], [address], 04/19/2025 13:13:26 04/18/20 25 04/19/2025 UA/M W/RFL X CULTU RE, ROUTI NE urine-color YELLOW yellow Not Available [facility] ([facility]) [address] [facility], [place], [address], 04/19/2025 13:13:26 04/18/20 25 04/19/2025 UA/M W/RFL X CULTU RE, ROUTI NE appearance CLEAR clear Not Available [facility] ([facility]) [address] [facility], [place], [address], 04/19/2025 13:13:26 04/18/20 25 04/19/2025 UA/M W/RFL X CULTU RE, ROUTI NE WBC esterase NEGATI VE negati ve Not Available [facility] ([facility]) [address] [facility], [place], [address], 04/19/2025 13:13:26 04/18/20 25 04/19/2025 UA/M W/RFL X CULTU RE, ROUTI NE protein NEGATI VE negati ve/tra ce Not Available [facility] ([facility]) [address] [place], [address], 04/19/2025 13:13:26 04/18/20 25 04/19/2025 UA/M W/RFL X CULTU RE, ROUTI NE glucose NEGATI VE negati ve Not Available [facility] ([facility]) [address] [facility] [address], [place], [address], 04/19/2025 13:13:26 04/18/20 25 04/19/2025 UA/M W/RFL X CULTU RE, ROUTI NE ketones NEGATI VE negati ve Not Available [facility] ([facility]) [address] [place], [address], 04/19/2025 13:13:26 04/18/20 25 04/19/2025 UA/M W/RFL X CULTU RE, ROUTI NE occult blood NEGATI VE negati ve Not Available [facility] ([facility]) [address] [place], [address], 04/19/2025 13:13:26 04/18/20 25 04/19/2025 UA/M W/RFL X CULTU RE, ROUTI NE bilirubin NEGATI VE negati ve Not Available [facility] ([facility]) [address] [place], [address], 04/19/2025 13:13:26 04/18/20 25 04/19/2025 UA/M W/RFL X CULTU RE, ROUTI NE urobilinogen ,semi-qn 0.2 mg/dL 0.2-1. 0 Not Available [facility] ([facility]) [address] [place], [address], 04/19/2025 13:13:26 04/18/20 25 04/19/2025 UA/M W/RFL X CULTU RE, ROUTI NE nitrite, urine NEGATI VE negati ve Not Available [facility] ([facility]) [address] [place], [address], 04/19/2025 13:13:26 04/18/20 25 04/19/2025 UA/M W/RFL X CULTU RE, ROUTI NE microscopic examination COMMEN T Stew mendiola ws if indic ated. Not Available [facility] ([facility]) [address] [place], [address], 04/19/2025 13:13:26 04/18/20 25 04/19/2025 UA/M W/RFL X CULTU RE, ROUTI NE microscopic examination SEE BELOW: Micro scopi c was indic ated and was perfo rmed. Not Available [facility] ([facility]) [address] [facility], [place], [address], 04/19/2025 13:13:26 04/18/20 25 04/19/2025 UA/M W/RFL X CULTU RE, ROUTI NE urinalysis reflex COMMEN T This speci men will not refle x to a Urine Cultu re. Not Available [facility] ([facility]) [address] [facility], [place], [address], 04/19/2025 13:13:26 04/18/20 25 04/20/2025 HEMOG LOBIN A1C hemoglobin A1C 5.9 % 4.8-5. 6 above high normal Predi abete s: 5.7 - 6.4 Diabe mica: >6.4 Glyce alonso contr ol for adult s with diabe mica: <7.0 Not Available [facility] ([facility]) [address], [place], [address], 04/20/2025 12:12:03 02/25/2002/24/2025 US, trans vagin al No observ ation record ed. ADAL[facility] [address], [place], [address], 02/28/2025 14:30:55 Result Notes None recorded. Problems Name Problem SNOMED Code Status Onset Date Resolution Date Notes Provider Name and Address Organization Details Recorded Time Anemia 135538704 Active 2018 Keke Jackson MA null, [place] [facility] 9 10:41:09 Uterine leiomyoma 66224784 Active 2020 DARLING NEWBERRY Attn: Geeta brown,[address], [place], [address], [place] [facility] 1 11:44:50 Prediabetes 876365016 Active 2021 DARLING NEWBERRY Attn: Accountin g,[address], [place], [address], [place] [facility] 5 11:40:33 Fatigue 29144450 Active 2021 DARLING NEWBERRY Attn: Accountin g,[address], [place], [address], [place] [facility] 2 16:25:08 Thoracic back pain 519881687 Active 2021 DARLING NEWBERRY Attn: Accountin g,[address] [facility], [place], [address], [place] [facility] 2 09:47:24 Low back pain 587428840 Active 2021 DARLING NEWBERRY Attn: Accountin g,[address] [facility], [place], [address], [place] [facility] 2 09:47:25 History of surgery 310767478 Active 2021 DARLING NEWBERRY Attn: Accountin g,[address] [facility], [place], [address], [place] [facility] 2 09:19:08 Iron deficiency anemia 17048925 Active 2022 DARLING NEWBERRY Attn: Accountin g,[address] [facility], [place], [address], [place] [facility] 3 11:01:29 Varicose veins of lower extremity 82331999 Active 2022 DARLING NEWBRERY Attn: Accountin g,[address] [facility], [place], [address], [place] [facility] 3 11:03:20 Pain in pelvis 48126089 Active 2023 DARLING NEWBERRY Attn: Accountin g,[address] [facility], [place], [address], [place] [facility] 4 09:16:53 Overweight 732052343 Active 2023 DARLING NEWBERRY Attn: Geeta brown,[address] [facility], [place], [address], [facility] 4 09:16:57 Varicose veins of lower extremity 76183327 Active 2024 DARLING NEWBERRY Attn: Geeta brown,[address] [facility], [place], [address], [place] [facility] 5 09:23:37 History of hysterectomy 260639642 Active 2024 DARLING NEWBERRY Attn: Geeta brown,[address] [facility], [place], [address], [facility] - [facility] 5 09:24:04 Blood in urine 65585401 Active 2024 DARLING NWEBERRY Attn: Geeta brown,[address] [facility], [place], [address], [facility] - [facility] 5 11:40:35 Problem Notes None recorded. Procedures Surgical History Date Name Laterality Status Provider Name and Address Organization Details Recorded Time 09/20/19 total abdominal hysterectomy completed Silva Peña MA [place] [facility] 01/11/2025 08:41:15 Appendectomy completed Keke Jackson MA [facility] 07/12/2019 10:43:41 Imaging Results None recorded. Procedure [...] completed Not Available Not Available Not Available [place]nee-Linyah 0.25 mg-0.035 mg tablet Take 1 tablet [...] (BMI) Body weight Heart rate Oxygen saturation Systolic And Diastolic Provider Name and Address Organization Details Last Updated DateTime 160.02 cm 29.8 kg/m2 45971.5 2 g 70 /min 98 % 129/81 mm[Hg] Silva Peña MA [facility] 5 08:39:59 Date Recorded Body height Body mass index (BMI) Body weight Heart rate Oxygen saturation Systolic And Diastolic Provider Name and Address Organization Details Last Updated DateTime 5 160.02 cm 29.9 kg/m2 03838.1 1 g 68 /min 98 % 114/67 mm[Hg] Silva Peña MA [facility] 5 16:22:54 Date Recorded Body height Body mass index (BMI) Body weight Heart rate Respiratory rate Oxygen saturation Systolic And Diastolic Provider Name and Address Organization Details Last Updated DateTime 5 160.02 cm 28.3 kg/m2 65794.7 8 g 70 /min 18 /min 98 % 116/87 mm[Hg] Kristen Fontana MA [facility] 5 09:01:16 Social History Question Answer Notes LastModified by Organizat ion Details LastModified Time Tobacco Smoking Status Never Smoker Keke Jackson MA [facility], [facility] 07/12/2019 10:43:25 In The 14 Days Before [...] Of Your Most Recent Tobacco Screening? 07/26/2025 [email or web address] Information not available 07/26/2025 What Is Your Relationship Status? Information not available 11/14/2020 Do You Have Smoke And Carbon Monoxide Detectors In Your Home? Yes Information not available 11/14/2020 Are You Passively Exposed To Smoke? No Information no t available 07/16/2021 Has Tobacco Cessation Counseling Been Provided? Yes Information not available 11/14/2020 On What Date Was Tobacco Cessation Counseling Provided? 07/26/2025 [email or web address] Information not available 07/26/2025 Sex: Female Functional [...] Atrial Fibrillation N High Blood Pressure N Thyroid Problems N Kidney or Bladder Problems N GI Problems N Depression N COPD N Blood Clots N Skin Problems N Anemia Y Heart Attack (MS) N Diabetes N Anxiety Disorder N Muscle, Joint, or [...] mcg/0.3 mL dose 3 completed Not Available [facility] 07/26/2025 08:57:37 COVID-19, mRNA, LNP-S, PF, brooke-sucrose, 30 mcg/0.3 mL 4 completed Not Available [facility] 07/26/2025 08:57:37 Influenza, split virus, quadrivalent, PF 0 completed Not Available [facility] 09/18/2019 02:39:15 Influenza, split virus, quadrivalent, preservative 0 completed Silva Peña [place] [facility] 06/16/2020 15:58:36 Influenza, split virus, quadrivalent, PF 1 completed Silva Pe[place] [facility] 07/16/2021 11:18:08 Influenza, split virus, quadrivalent, preservative 2 completed Silva Pe[place] [facility] 07/09/2022 15:40:01 Tdap 2 completed DARLING NEWBERRY Attn: Accounting,[address] [place], [address], [place] [facility] 07/15/2022 09:42:23 Influenza, split virus, quadrivalent, PF 3 completed Silva Pe[place] [facility] 06/20/2023 12:18:26 Influenza, split virus, trivalent, PF 4 completed Kristen Fontana [place] [facility] 06/15/2024 11:13:06 Influenza, split virus, trivalent, PF 5 completed Jennifer Baptiste MA [place], [place] - [facility] 06/16/2025 10:16:42 Past Encounters Encounter ID Performer Location Encounter Start Date Encounter Closed Date Diagnosis/Indication Diagnosis SNOMED-CT Code Diagnosis ICD10 Code Diagnosis IMO Codes Diagnosis Note [id number] DARLING NEWBERRY [facility] [address] [place] [address] 07/12/2019 10:10:08 07/13/2019 14:21:01 Increased frequency of urination 103347862 R35.0 one week of increased urination. Suprapubic tenderness on exam. - UA Iron defic iency anemia 98188457 D50.9 checking CBC AND IRON. Last reading was 10 hgb in may. She is feeling tired and has some petechiae on arms.- sent with labs to go to [facility] Cholesterol screening 27 8894582 Z13.220 patient has never been screened for cholestero l. She is overweight . No family history of DM2. She does have increased urination. Menorrhagia 594457615 N9 2.0 patient had HGB of 5 due to heavy periods. We discussed starting the pill to lighten periods. She agreed. She is also taking iron. patient has her tubes tied.- checking TSH for possible cause of heavy periods- f/u in 3 months- one pill per day. if forgets one day take 2 the next day at the same times- call with questions [id number] DARLING NEWBERRY [facility] [address] [place] [address] 09/06/2019 10:59:52 09/07/2019 10:03:22 Dysuria 10930055 R30.9 dysuria x one week. flank pain [...] pain worsens, symptoms do not improve Prediabetes 091742310 R7 3.03 patient has had increased thirst and urination Administra tion of influenza vaccine 91849653 Z23 may take tylenol or NSAID for pain or swelling. [id number] DARLING NEWBERRY [facility] [address] [place] [address] 10/19/2019 09:53:28 10/19/2019 10:21:02 Hypothyroidism 16417881 E03.9 Iron defic iency anemia 32398596 D50.9 checking CBC AND IRON. Last reading was 10 hgb in may. She is feeling tired and has some petechiae on arms.- sent with labs to go to [facility] [id number] DARLING NEWBERRY [facility] [address] [place] [address] 01/10/2020 10:53:09 01/11/2020 10:19:25 Increased frequency of urination 384277012 R35.0 one week of increased urination and dysuria. denies fever and chills. - UA- stay hydrated- keep area dry adn clean- void before and after sex [id number] DARLING NEWBERRY [facility] [address] [place] [address] 06/16/2020 15:46:42 06/16/2020 21:21:40 Adult health examination 478655191 Z00.00 [id number] DARLING NEWBERRY [facility] [address] [place] [address] 07/26/2020 14:46:25 07/28/2020 08:21:02 Pyelonephritis 34925390 N12 negative UA. Will cutlure. due to CVA tenderness and and suprapubic pain will treat for pyelonephr itis. Cannot r/u kidney stone and patient is advised to go to ER if symptoms worsen or do not improve Acute urin neftaly tract infection 291528400 N39.0 [id number] Fredrick Knapp MD [facility] [address] [place] [address] 09/15/2020 11:18:29 09/15/2020 15:11:39 Chronic back pain 779097736 G89.29 [id number] Fredrick Knapp MD [facility] [address] [place] [address] 10/04/2020 10:27:01 10/04/2020 14:52:32 Low back pain 181726412 M54.5 [id number] DARLING NEWBERRY [facility] [address] [place] [address] 11/14/2020 15:48:31 11/17/2020 09:39:17 Chronic interstitial cystitis 740158887 N30.10 Patient with painful bladder, increased frequency and urgency. Normal work up including UA and US. - may be interstiti al cystitis - discussed foods to avoid and f/u in one month Adult [facility] examination 425895432 Z00.00 Patient presents for labs and physical. vitals wnl. ROS + for fatigue. will draw labs. - exercise 30 mins 5x week - patient is Prediabeti c, A1C 5.9 - discussed diet - due for pap, scheduled Family his tory of lupus erythematosus 402413505 Z84.0 patient with family history of lupus and increased fatigue Screening mammography 24 391942 Z12.31 given order for mammogram [id number] DARLING NEWBERRY [facility] [address] [place] [address] 11/15/2020 09:14:49 11/17/2020 11:33:55 [id number] DARLING NEWBERRY [facility] [address] [facility] [place] [address] 11/21/2020 14:56:03 11/28/2020 06:12:28 Gynecologic examination 46973904 Z01.419 patient presents for pap. All paps have been normal. No complaints today. normal breast- no nipple discharge, lumps noted. On pap normal mucosa, no atropthy, A grade 1 uterine prolap is noted. Obtained pap successful ly. nuswab sent for culture, - mammogram order - normal pap, repeat in 5 years Uterine prolapse 6577369 5 N81.4 first degree prolapse [id number] DARLING NEWBERRY [facility] [address] [place] [address] 07/16/2021 10:02:37 07/17/2021 16:15:06 Uterine prolapse 08270026 N81.4 prolapse noted on contact clerk exam at last visit. She continue having pressure pain in pelvic area. She did not f/u with urology as they did not call. She prefers to stay in [facility]. defers contact clerk exam today as ER did pelvic exam last week. Anemia 106269921 D64.9 hgb 07 november 2020. Patient did not f/u. will recheck today Prediabetes 216170343 R7 3.03 patient has had increased thirst and urination. A1C elevated to 5.9 Pain in pelvis 50410092 R10.2 Patient with >2 weeks of pelvic pain. evaluated by ER and given bactrim for UTI, UA was negative that day. defers pelvic exam today. tender on pelvic exam. - US given to patient- nuswab- r/o sti-ER IF pain worsens , develops fever Administra tion of influenza vaccine 76508997 Z23 may take tylenol or NSAID for pain or swelling. [id number] DARLING NEWBERRY [facility] [address] [place] [address] 08/08/2021 11:14:32 08/09/2021 09:44:16 Anemia 403642247 D64.9 hgb 9.8 07/16/21 and 07 november 2020. will recheck today. she is taking iron as prescribed . starting treatment again for heavy bleeding. she was treated before but stopped. I am referring to obgyn for fibroid and enlarged uterus. Uterine leiomyoma 153632 05 D25.9 uterus enlarged, measures 11x 6.4 x 6cm. largest uterine fribrodis 3.7 cm. endometria l complex measures 9mm. starting contracept ion again today. patient agrees to take it. negative urine test. denies any sexual activity. LMP 07/21/21 [id number] DARLING NEWBERRY [facility] [address] [place] [address] 05/14/2022 15:43:13 05/15/2022 15:08:27 Anemia 093150455 D64.9 hgb 9.8 07/16/21 and 07 november 2020. will recheck today. she is taking iron as prescribed . Uterine leiomyoma 350972 05 D25.9 uterus enlarged, measures 11x 6.4 x 6cm. largest uterine fibrodis 3.7 cm. endometria l complex measures 9mm. following obgyn. has f/u may 27 2022, Prediabetes 022496621 R7 3.03 A1C 6.1 08/2021 Paresthesia of foot 3090 38387 R20.2 tingling sensation at night time. Fatigue 97873657 R53.83 [id number] DARLING NEWBERRY [facility] [address] [place] [address] 07/05/2022 10:14:28 07/10/2022 13:29:59 Administration of influenza vaccine 39004269 Z23 may take tylenol or NSAID for pain or swelling. [id number] DARLING NEWBERRY [facility] [address] [place] [address] 07/10/2022 14:39:48 07/15/2022 12:34:02 Anemia 878812048 D64.9 hgb 9.8 07/16/21 and 07 november 2020. Uterine leiomyoma 062838 05 D25.9 uterus enlarged, measures 11x 6.4 x 6cm. largest uterine fibroids 3.7 cm. endometria l complex measures 9mm. following obgyn. Fibroidect sagrario scheduled august 2022. Paresthesia of foot 3090 68407 R20.2 tingling sensation at night time. on exam both feet were checked. normal pulses, color, and monofilame nt exam. Thoracic back pain 02567 8004 M54.6 Low back pain 375390025 M54.50 low back pain x months that [...] avoid lying on the sofa. Epigastric pain 22117527 R10.13 epigastric pain . admits to eating [...] try to diet and exercise. HIV screening 994740298 Z11.4 screeninh Administra tion of diphtheria, pertussis, and tetanus vaccine 033090400 Z23 administer ed today Depression screening 171 868057 Z13.31 negative Overweight 225831836 E66 .3 [id number] DARLING NEWBERRY [facility] [address] [place] [address] 07/24/2022 15:47:29 07/29/2022 16:23:12 Acute sinusitis 24131862 J01.90 - hydrate and rest - ibuprofen or tylenol for body aches - z aida as prescribed - tessalon perles to control cough - f/u if not improving or worsening. - ER if trouble breathing, worsening chest pain, 103 fever without improvemen t with NSAID/tyle nol. [id number] DARLING NEWBERRY [facility] [address] [place] [address] 08/14/2022 10:53:23 08/19/2022 16:37:58 Overweight 824834153 E66.3 discussed healthy diet Cholesterol screening 27 6601226 Z13.220 repeat. History of surgery 08410 6173 Z98.890 patient had surgery 08/12/22 by Delicia Mcdonald at [facility] to remove fibroids causing menorrhagi a and anemia. normal pathology. com complicati ons. she has f/u on 08/27/22. [id number] DARLING NEWBERRY [facility] [address] [facility] [place] [facility] [place] [address] 10/28/2022 15:37:30 10/28/2022 16:59:34 Acute sinusitis 55642236 J01.90 - hydrate and rest- ibuprofen or tylenol for body aches- tessalon perles to control cough- f/u if not improving or worsening. - ER if trouble breathing, worsening chest pain, 103 fever without improvemen t with NSAID/tyle nol. [id number] DARLING NEWBERRY [facility] [address] [place] [address] 03/25/2023 10:26:18 03/25/2023 10:52:14 Iron deficiency anemia 81154046 D50.9 screen for anemia due to 8 day periods and going through pads every 2 hours, feeling more fatigue.-f /u obgyn(07/03 023) HGB 12, iron sat 12, ferritin 9 Screening for malignant neoplasm of colon 569959337 Z12.11 denies family history of colon cancer, bloody stools, cahnge in BMagrees to cologuard Varicose v eins of lower extremity 48118880 I83.93 R varicose veins with dependent edema in evening. no swelling noted today.comp ression sockseleva te feet when able Insomnia 502797180 G47.0 0 Discussed sleep hygiene. f/u in [...] associate room with anxiety or work Overweight 286594363 E66 .3 discussed healthy diet [id number] DARLING NEWBERRY [facility] [address] [place] [address] 06/20/2023 10:27:28 06/20/2023 12:37:00 Administration of influenza vaccine 55432417 Z23 may take tylenol or NSAID for pain or swelling. [id number] Otoniel Chase MD [facility] [address] [place] [address] 04/19/2024 08:52:42 04/19/2024 09:17:38 Iron deficiency anemia 71258087 D50.9 repeat lans -f/u obgyn(07/03 023) HGB 12, iron sat 12, ferritin 9 Overweight 785887459 E66 .3 discussed healthy diet Screening mammography 24 007020 Z12.31 given order for mammogram Pain in pelvis 59338712 R10.2 Patient with >2 weeks of pelvic pain. denies uti sx. midly tender on exam w/o rebound. understand sx and when to go to ER. - US given to patient-ER IF pain worsens , develops fever [id number] Otoniel Chase MD [facility] [address] [place] [address] 06/15/2024 11:05:41 06/15/2024 11:16:55 [id number] Otoniel Chase MD [facility] [address] [place] [address] 01/11/2025 08:31:38 01/11/2025 09:25:33 History of hysterectomy 421193701 Z90.710 666629 complete abdominal hysterecto my 09/2024gun wants her to have pelvic floor therapy Varicose v eins of lower extremity 90057453 I83.893 31939251 R>L varicose veins with dependent edema in evening. no swelling noted today.comp ression sockseleva te feet when able Iron deficiency 44703676 E61.1 9881 repeathas complete abdominal hysterecto my in September 2024 Prediabetes 764245106 R7 3.03 705184 A1C 6.3% (04/2024) 6.1 08/2021 Cholesterol screening 27 4574963 Z13.220 215203 repeat. [id number] Otoniel Chase MD [facility] [address] [place] [address] 04/18/2025 16:16:45 04/21/2025 14:57:18 Blood in urine 04008119 R31.9 38910208 started in episodes of annabella heamturia -painlesso btain urinesent to urologist Prediabetes 838652802 R7 3.03 069728 A1C 6.3% (04/2024) 6.1 08/2021 History of hysterectomy 170610135 Z90.710 810013 complete abdominal hysterecto my 09/2024gun wants her to have pelvic floor therapy Varicose v eins of lower extremity 68983014 I83.893 10953842 R>L varicose veins with dependent edema in evening. no swelling noted today.comp ression sockseleva te feet when able Cholesterol screening 27 0012667 Z13.220 233410 repeat. unable to get fenofibrat ediet education provided Overweight 141340879 E66 .3 discussed healthy diet Mixed hyperlipidemia 267 084364 E78.2 80786 [id number] Otoniel Chase MD [facility] [address] [place] [address] 04/19/2025 10:26:09 04/19/2025 11:03:39 [id number] Otoniel Chase MD [facility] [address] [place] [address] 06/16/2025 10:06:35 06/16/2025 10:16:46 Requires influenza virus vaccination 596115222 Z23 1582768 [id number] Otoniel Chase MD [facility] [address] [place] [address] 07/26/2025 08:54:16 07/26/2025 09:43:46 Prediabetes 108179389 R73.03 327280 She has history of prediabete s. We will check routine lab work to ensure she is optimized. You can prevent or lower your risk of developing Type 2 Diabetes Mellitus by increasing physical activity, limiting carbohydra mica, choosing more vegetables , fruits, and whole grains. Do not deep-causey your food, choose lean cuts of meat, and lower fat versions of milk. 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 Informatio nal handout provided. Anemia 723219538 D64.9 No menstrual cycleParti al hysterecto my [...] as raisins or apricots etc. Acute bronchitis 2800184 2 J20.9 02461465 no wheezing - has albuterol inhalerdox ycycline [...] ED or call.Cool mist humidifier Seasonal allergy 7336681 04 J30.2 96233 The patient has a history of allergies, as evidenced by the previous use of cetirizine . This could contribute to sinus-rela ata symptoms. Education provided on cetirizine . She voices understand ing. Health Concerns Section Related Observation LastModified by Organization Detai ls LastModified Time None Recorded Concern Status LastModified by Organization Details LastModified Time None Recorded Advance Directives Directive None Recorded Payers Insurance Date Sequence Insurance Name Policy Number Policy Goodson Covered Member ID Goodson Member ID Guarantor Name 04/19/2025 1 [place] [id number] Lorraine Dejuan [id number] Lorraine Dejuan 11/14/2020 1 *SELF PAY* Be ayanna Dejuan 07/26/2020 SLIDING FEE SCHEDULE - DISCOUNT Lorraine Dejuan 07/23/2025 1 [place] [id number] Lorraine Dejuan [id number] Lorraine Dejuan 07/16/2021 SLIDING FEE SCHEDULE - DISCOUNT Lorraine Dejuan 04/19/2025 1 [place] Lorraine Zaidi [id number] Lorraine Zaidi 04/19/2025 1 [facility] - DOS ON OR AFTER 21 (MEDICAID REPLACEMENT - HMO) Lorraine Zaidi [id number] Lorraine Zaidi Notes Date Note Type Note Provider Name and Address Organization Details Recorded Time 01/11/2025 text/html Lorraine is here with multiple complaints R leg feels tight hysterectomy done September and doing well. States she was sent to do pelvic therapy but insurance did not cover it. she does have have incontinence but has trouble getting urine out at times since surgery. OCCUPATIONAL NURSE told her to f/u with pcp for referral. She has R leg varicose veins and by end of day she had pain. pain is worse after periods of walking and stopping for a few minutes and in the evenings. she denies redness or swelling. she would like cholsterol screen as she is fasting and also repeat A1C for prediabetes. DARLING NEWBERRY Attn: Accounting,[address] [facility], [place], [address], [facility] 01/11/2025 09:25:23 04/18/2025 text/html Lorraine is a 49 YO Here for multiple concerns she needs new referral for pelvic floor therapy She states she has had a couple episodes of blood in her urine. The 1st episode happened in January and then again in March. She saw her OBGYN who gave her a estrogen cream and told her that this might help. She denies flank pain, increased urination, pain for urination. She would also like a referral for her varicose veins. wants labs rechecked. DARLING NEWBERRY Attn: Accounting,[address] [facility], [place], [address], [facility] 04/19/2025 11:42:13 07/26/2025 text/html ROS as noted in the [...] coughing. Silva neil NP Attn: [address] [place], [address], [place] - [facility] 07/26/2025 11:21:47 OBGyn Episode No OBEpisode recorded.
--- OUTSIDE RECORDS SUMMARY | 2025-07-26 17:25 | XMS_ITS | Clinical Summary ---
Author Organization [facility] Care Team Providers Care Electrical Hardware Engineer Name Role Phone Unavailable Primary Care Provider Unavailabl e Social History Tobacco Use Types Packs/Day Years Used Date Smoking Tobacco: Never Assessed Comments Unknown Sex and Gender Information Value Date Recorded Sex Assigned at Not on file Legal Sex Female 12:48 PM 3RD MATE Gender Identity Not on file Sexual Orientation Not on file Plan of Treatment Health Maintenance Due Date Last Done Comments Hepatitis C Virus (HCV) Screening 1975 TdaP Immunization 1975 Hepatitis B Immunization (1 of 3 - 19+ 3-dose series) 12/15/1994 Pap Smear 12/15/1996 Cervical Cancer Screening (CCS) 12/15/2005 HPV/Cotest 12/15/2005 Cologuard 12/15/2020 Colonoscopy 12/15/2020 Colorectal Cancer Screening 12/15/2020 Immunochemical Fecal Occult Blood 12/15/2020 Influenza Immunization (#1) 05/02/202507/02, 06/16/2020, 09/06/2019, Additional history exists SARS-COV-2 Immunization ( season) 2025 08/05/2021, 12/05/2020, 11/10/2020 Respiratory Syncytial Virus (RSV) Immunization (Adult) (1 - 1-dose 75+ series) 12/15/2050 Human Papillomavirus (HPV) Immunization Aged Out No longer eligible based on patient's age to complete this topic Meningococcal Immunization (ACWY) Aged Out No longer eligible based on patient's age to complete this topic Pneumococcal Immunization Combined Aged Out No longer eligible based on patient's age to complete this topic Rotavirus Immunization Aged Out No lo nger eligible based on patient's age to complete this topic
--- OUTSIDE RECORDS SUMMARY | 2025-07-26 17:25 | XMS_ITS | Clinical Summary ---
[facility] Address [address] [place] [address] [place] [address] Care Team Providers Care Family Readiness Support Assistant Name Role Phone Unavailable Primary Care Provider [...] 1:04 PM CDT Height 160 cm (5' 3) 05/28/2019 1:04 PM CDT Body Mass Index 27.07 05/28/2019 1:04 PM CDT Plan of Treatment Health Maintenance Due Date Last Done Comments DTAP/TDAP/TD VACCINES (1 - Tdap) 12/15/1994 HEPATITIS B VACCINES (1 of 3 - 19+ 3-dose series) 11/30 HPV/Cotest (21-29) 12/15/1996 CERVICAL CANCER SCREENING 12/15/2005 HPV/Cotest (30-65) 12/15/2005 PAP SMEAR 12/15/2005 BREAST CANCER SCREENING 2015 COLORECTAL SCREENING 12/15/2020 Colorectal Cancer Screening 12/15/2020 FIT-DNA Q 3 years 12/15/2020 FIT/FOBT Q 1 year 12/15/2020 Flex Sig/CT Colonography Q 5 years 12/15/2020 INFLUENZA VACCINE (#1) 2025
== END 2025-07-26 16:12 | disposition home or self-care (01) ==
DX: J20.9 Acute bronchitis, unspecified (principal)
CPT/HCPCS: 71046

== ENCOUNTER 2025-07-27 09:15 | Outpatient (RCR) | payer BC, SELFPAY ==
--- NOTE | 2025-04-28 15:54 | OPREHPOC ---
Outpatient Therapy Plan of Care This is a Multidisciplinary Plan of Care that may contain components documented by all disciplines (PT, OT, and ST.) PT Problem 1 PT Problem #1 Knowledge Deficit PT Goal 1 Goal / Goal Update 1. Patient will perform independent HEP Target Visit 2 PT Problem 2 PT Problem #2 Pain PT Goal 1 Goal / Goal Update 1. No pain on pelvic exam 2. Pain 2/10 highest after working Target Visit 5 PT Problem 3 PT Problem #3 Impaired Strength PT Goal 1 Goal / Goal Update 1. Bilateral hip strength to 5/5 faviola in all planes to allow for work tasks Target Visit 5
--- NOTE | 2025-04-28 15:54 | PTOPEVAL1 ---
Assessment and note entered by Yue Steiner DPT Evaluation Information Assessment Status Evaluation Diagnosis z90.710 ICD-10 Condition Codes (PT) Weakness R53.1,Pelvic and perineal pain R10.2 Subjective Information Pt has previously been in therapy at this facility due to her low abdominal pain. Overall reports she is still feeling better with walking but has pressure and pain at the end of the day. Heating pad helps her pain. Highest pain recently 7-8/10 and lowest 0/10. Urinary incontinence on average once a week. Voiding 5-7 times a day, sometimes gets up 1 time at night to void. Denies pain with urination or BM. Patient goal: continue addressing pain Reported Pain Level Pain Score 4: Self Report Assessment PT Clinical Summary The patient is returning to skilled therapy with continued abdominal/pelvic pain. She presents with decreased hip strength and increased pelvic floor muscle tone and pain with palpation that are contributing to her increased symptoms after working. She will benefit from therapy to address these impairments in order to reduce pain and restore function. Plan of Care Interventions Electrical Stimulation,Gait Training,Hot Pack/Cold Pack,Manual Therapy,Neuro Re-education,Patient/ Caregiver Education,Therapeutic Activities, Therapeutic Exercise PT Services Indicated Yes Treatment Frequency and 1 time a week for 5 visits Duration These treatments will address the objective and functional deficits as defined above. The patient will be advanced safely and appropriately in order for the patient to progress towards his/her prior level of function. Additional exercises will be introduced and as well as a comprehensive home exercise program upon discharge, if needed, ?to ensure carryover of functional gains achieved in the clinic. This treatment plan has been reviewed and agreement upon by the patient.
--- NOTE | 2025-05-31 16:01 | OPREHPOC ---
Outpatient Therapy Plan of Care This is a Multidisciplinary Plan of Care that may contain components documented by all disciplines (PT, OT, and ST.) PT Problem 1 PT Problem #1 Knowledge Deficit PT Goal 1 Goal / Goal Update 1. Patient will perform independent HEP Target Visit 2 Progress Met PT Problem 2 PT Problem #2 Pain PT Goal 1 Goal / Goal Update 1. No pain on pelvic exam 2. Pain 2/10 highest after working update 05/31/25 1. improved to 3-4/10 highest 2. 4/10 highest Target Visit 8 Progress Partially Met PT Problem 3 PT Problem #3 Impaired Strength PT Goal 1 Goal / Goal Update 1. Bilateral hip strength to 5/5 faviola in all planes to allow for work tasks updated 05/31/25 1. 4+/5 in all planes Target Visit 8 Progress Partially Met
--- NOTE | 2025-05-31 16:01 | PTOPPROG ---
Assessment and note entered by Yue Steiner DPT Evaluation Information Assessment Status Progress Diagnosis z90.710 ICD-10 Condition Codes (PT) Weakness R53.1,Pelvic and perineal pain R10.2 Subjective Information Highest pain recently 4/10 and lowest 0/10. Pain is still worst at the end of a long work day. Last time she had urinary incontinence was about 3 weeks ago while coughing. Assessment PT Clinical Summary The patient has made good progress overall in therapy. She reports decreased intensity of pain overall and no incontinence for several weeks. She demonstrates improved hip strength, decreased pain with palpation, and decreased pain with assessment of pelvic floor musculature. She also demonstrates improved pelvic floor muscle tone and ability to relax after contraction. Due to her progress but continued pain, she will benefit from further therapy to fully return to function. Plan of Care Interventions Electrical Stimulation,Gait Training,Hot Pack/Cold Pack,Manual Therapy,Neuro Re-education,Patient/ Caregiver Education,Therapeutic Activities, Therapeutic Exercise PT Services Indicated Yes Treatment Frequency and 1 visit every other week x 3 visits Duration These treatments will address the objective and functional deficits as defined above. The patient will be advanced safely and appropriately in order for the patient to progress towards his/her prior level of function. Additional exercises will be introduced and as well as a comprehensive home exercise program upon discharge, if needed, ?to ensure carryover of functional gains achieved in the clinic. This treatment plan has been reviewed and agreement upon by the patient.
--- NOTE | 2025-07-13 13:10 | PCPTNOTE ---
Patient called to cancel appointment 07/13/25 due to illness.
--- NOTE | 2025-07-27 09:49 | OPREHPOC ---
Outpatient Therapy Plan of Care This is a Multidisciplinary Plan of Care that may contain components documented by all disciplines (PT, OT, and ST.) PT Problem 1 PT Problem #1 Knowledge Deficit PT Goal 1 Goal / Goal Update 1. Patient will perform independent HEP Target Visit 2 Progress Met PT Problem 2 PT Problem #2 Pain PT Goal 1 Goal / Goal Update 1. No pain on pelvic exam 2. Pain 2/10 highest after working update 05/31/25 1. improved to 3-4/10 highest 2. 4/10 highest update 07/27/25 1. not assessed 2. met Target Visit 8 Progress Met PT Problem 3 PT Problem #3 Impaired Strength PT Goal 1 Goal / Goal Update 1. Bilateral hip strength to 5/5 faviola in all planes to allow for work tasks updated 05/31/25 1. 4+/5 in all planes Target Visit 8 Progress Met
--- NOTE | 2025-07-27 09:49 | PTOPDC ---
Assessment and note entered by Yue Steiner DPT Evaluation Information Assessment Status Discharge Diagnosis z90.710 ICD-10 Condition Codes (PT) Weakness R53.1,Pelvic and perineal pain R10.2 Subjective Information Pt reports she has been very sick recently with bronchitis and not doing her HEP or being as active in general. Has not felt the pain that brought her to therapy recently. Also has not noticed any urinary incontinence. Reported Pain Level Pain Score 0: Self Report Assessment PT Clinical Summary The patient has made excellent progress in therapy and reports no recent pain or incontinence. She demonstrates improved strength and due to her progress, discharge is recommended at this time. The patient has been educated to follow up with PT and/or MD as needed. Plan of Care PT Services Indicated No
== END 2025-07-27 12:06 | disposition home or self-care (01) ==
LOC: ANHPT 09:15
PROVIDERS: PCP Physician Assistant; Visit Provider Physician Assistant
DX: R10.20 Pelvic and perineal pain unspecified side (principal); R53.1 Weakness; Z90.710 Acquired absence of both cervix and uterus
CPT/HCPCS: 97110; 97112; 97140; 97161; 97530